=== PATIENT | male | born 1945 | race Caucasian/White ===

== ENCOUNTER 2017-02-20 15:16 | Emergency (ER) | payer MEDICARE, BC ==
[2017-02-20] MEDS ORDERED: Ondansetron INJ* 2 MG/ML VIAL IV ONE (15:59)
[2017-02-20] MEDS ORDERED: Morphine INJ* 4 MG/ML 1 ML CARPUJECT IV ONE (15:59)
[2017-02-20] MEDS: NS 0.9% 1000 ML* 2,000 ML IV ONE (16:41)
[2017-02-20 16:50] LABS: Hematocrit 41 % (42-52); Hemoglobin 13.4 g/dl (14.0-18.0); Mean Corpuscular HGB Conc 32 g/dl (31-36); Mean Corpuscular Hemoglobin 26 pg (27-31); Mean Corpuscular Volume 80 fL (80-94); Mean Platelet Volume 8 um3 (7.4-10.4); Red Blood Count 5.18 10^6/ul (4.0-5.4); Red Cell Distribution Width 18 % (10.5-15); White Blood Count 8.3 10^3/ul (3.5-10.8)
[2017-02-20] MEDS ORDERED: HYDROmorphone INJ* 1 MG/ML CARPUJECT SYRINGE IV ONE (17:01)
[2017-02-20] MEDS ORDERED: LORazepam INJ* 2 MG/ML 1 ML VIAL IV ONE (17:01)
[2017-02-20 17:06] LABS: Albumin 3.8 g/dL (3.2-5.2); BUN/Creatinine Ratio 10.6 (8-20); C Reactive Protein 5.74 mg/L (< 5.00); Calcium 9.4 mg/dL (8.6-10.3); EGFR African American 101.7 (>60); EGFR Non-African American 79.1 (>60); Globulin 2.5 g/dL (2-4); Magnesium 1.6 mg/dL (1.9-2.7); Potassium 4.9 mmol/L (3.5-5.0); Total Bilirubin 0.6 mg/dL (0.2-1.0); Total Protein 6.3 g/dL (6.4-8.9)
[2017-02-20 17:08] LABS: Troponin I 0.01 ng/mL (<0.04)
[2017-02-20] MEDS ORDERED: Iodixanol* (CONTRAST) 320 MG/ML 100 ML SDV IV ONE (17:14)
[2017-02-20 17:35] LABS: TSH (Thyroid Stimulating Horm) 0.74 mcIU/mL (0.34-5.60)
--- NOTE | 2017-02-20 18:24 | RAD ---
Indication: Trauma, head injury. CT of the brain was performed without IV contrast. Ventricular structures are midline. No midline shift is noted. The extraction spaces are unremarkable. There is no evidence of intracranial mass or hemorrhage. No other high or low density lesions identified. Mastoid air cells and paranasal sinuses are unremarkable. IMPRESSION: NO INTRACRANIAL MASS OR HEMORRHAGE IS NOTED.
--- NOTE | 2017-02-20 18:32 | RAD ---
Indication: Trauma, abdominal pain. Contrast: Administered 100.1 ml of VISAPAQUE 320 mg/ml CT of the chest, abdomen and pelvis was performed after oral and IV contrast administration. Inferior thyroid lobes are unremarkable. There is no mediastinal or hilar adenopathy. The heart demonstrates no pericardial effusion. The trachea and major bronchi appear patent. The lung edwards demonstrate emphysematous changes. No evidence of alveolar consolidation is noted. No pleural fluid is identified. The heart demonstrates no pericardial effusion. Liver is normal in size. No focal lesions or intrahepatic duct dilatation is noted. The spleen is normal in size. Pancreas is slightly atrophic. Common duct is not dilated. No adrenal lesions are noted. The kidneys demonstrate symmetric nephrograms with a cortical cysts in the left kidney measuring up to 2.9 cm. Nonobstructing calculi are noted in the left kidney with no hydronephrosis. Atherosclerotic aorta is noted. No retroperitoneal lymphadenopathy is noted. No dilated loops of bowel are noted. The colon is filled with stool. CT of the pelvis demonstrates no pelvic lymphadenopathy. Urinary bladder is unremarkable. The prostate is enlarged. No hernias are noted. No free fluid is noted in the pelvis. The visualized bony structures are grossly unremarkable. IMPRESSION: No evidence of solid organ injury is noted. No free fluid is noted in the pelvis. CT of the chest is unremarkable. The study is limited due to lack of oral contrast. Left renal cyst with left renal calculi which are nonobstructing are noted.
--- NOTE | 2017-02-20 18:43 | RAD ---
Indication: Neck injury. CT of the cervical spine was obtained in the axial plane. Sagittal and coronal reconstructed images were obtained. Mastoid air cells are intact. The C1 ring is intact without fracture. The vertebral bodies appear normal in height. No fracture is noted. At C2-C3, C3-C4 there is no disc protrusion. No central or foraminal stenosis is noted. At C4-C5 spondylitic ridge flattens the thecal sac. No central foraminal stenosis is noted. At C5-C6 spondylitic ridge flattens the thecal sac. Bilateral uncovertebral joint hypertrophy narrows both foramen. At C6-C7 and C7-T1 the disc spaces are unremarkable. Lung apices are otherwise unremarkable. IMPRESSION: No fracture of the cervical spine is noted. Degenerative disc disease at C4-C5 and C5-C6.
[2017-02-20] MEDS ORDERED: LORazepam TAB(*) 1 MG PO ONE (20:40)
--- NOTE | 2017-02-20 20:51 | ED ---
Dalila Mcdaniel Gabriel, scribed for Anoop Santana MD on 02/20/17 at 1547 . Syncope/Near Syncope - HPI Summary HPI Summary: This patient is a 71 year old M presenting to [facility] [place] accompanied by with a chief complaint of a syncopal episode that occurred 2 days ago. The patient rates the pain 10/10 in severity. Patient reports JARA and flank pain due to the fall. Patient denies CP, palpitations, melena, and hematuria. Pt states he was going to the bathroom in the middle of the night when he had a LOC. He hit his head and side while falling and was sitting on the toilet when he became conscious again. Pt reports having similar episodes 2 years ago but they stopped when he got off the medications he was taking at the time. - History Of Current Complaint Chief Complaint: EDSyncope Time Seen by Provider: 02/20/17 15:41 Hx Obtained From: Patient, Family/Toddler Teacher - Onset/Duration: Sudden Onset Timing: Intermittent Episode Lasting Context: Unwitnessed Activity At Onset: Other - walking to the bathroom Alleviating Factor(s): Spontaneous Resolution Associated Signs And Symptoms: Negative - hematuria and melena, Headache, Other - flank pain - Allergies/Home Medications Allergies/Adverse Reactions: Allergies Allergy/AdvReac Type Severity Reaction Status Date / Time No Known Allergies Allergy Verified 10/17/13 10:28 PMH/Surg Hx/FS Hx/Imm Hx Previously Healthy: No Endocrine/Hematology History: 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 Denies: Hx Anticoagulant Therapy, Hx Thyroid Disease Cardiovascular History: Reports: Hx Hypertension Denies: Hx Congestive Heart Failure, Hx Pacemaker/ICD, Other Cardiovascular Problems/Disorders Respiratory History: Reports: Hx Chronic Obstructive Pulmonary Disease (COPD), Other Respiratory Problems/Disorders - COPD Denies: Hx Asthma GI History: Reports: Hx Gastroesophageal Reflux Disease History: Reports: Hx Kidney Stones Denies: Hx Dialysis, Hx Renal Disease Sensory History: Reports: Hx Contacts or Glasses Denies: Hx Hearing Aid Opthamlomology History: Reports: Hx Contacts or Glasses Neurological History: Reports: Other Neuro Impairments/Disorders - neuropathy bilaterally Denies: Hx Dementia, Hx Seizures Psychiatric History: Reports: Hx Anxiety, Hx Post Traumatic Stress Disorder Denies: Hx Panic Disorder, Hx Substance Abuse - Surgical History Surgery Procedure, Year, and Place: 5 cardiac stent placement at [facility] done all in the . Triple Bypass at [facility] 08/19/11. 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 - Immunization History Date of Tetanus Vaccine: UNKNOWN Date of Influenza Vaccine: NONE Infectious Disease History: No Infectious Disease History: Reports: Hx Shingles - IN PAST Denies: Hx Clostridium Difficile, Hx Hepatitis, Hx Human Immunodeficiency Virus (HIV), Hx Tuberculosis, Traveled Outside the [place] in Last 30 Days - Family History Known Family History: Positive: None - reviewed & noncontributory, Unknown - pt does not know FHx - Social History Alcohol Use: None Hx Substance Use: No Substance Use Type: Reports: None Substance Use Comment - Amount & Last Used: oxycodone 10mg q4h, oxycontin SR 10mg. Hx Tobacco Use: Yes Smoking Status (MU): Former Smoker Review of Systems Cardiovascular: Negative - palpitations Negative: Chest Pain Gastrointestinal: Negative - melena Negative: hematuria Positive: Other - flank and back pain Neurological: Other - syncope Positive: Headache All Other Systems Reviewed And Are Negative: Yes Physical Exam - Summary Physical Exam Summary: General: well-appearing, no pain distress Skin: warm, color reflects adequate perfusion, dry Head: normal Eyes: EOMI, ARNOL ENT: Scabbed over lesion just anterior to his left tragus Neck: supple, nontender Respiratory: CTA, breath sounds present Cardiovascular: RRR Abdomen: soft, nontender, Mild tenderness in RUQ. Bowel: present Back: Tender to palpation on right posterior lower ribs, midline, and lower back. Musculoskeletal: normal, strength/ROM intact Neurological: normal, sensory/motor intact, A&O x3 Psychological: affect/mood appropriate Triage Information Reviewed: Yes Vital Signs On Initial Exam: Initial Vitals Temp Pulse Resp BP Pulse Ox 97.6 F 76 20 140/105 100 02/20/17 15:21 02/20/17 15:21 02/20/17 15:21 02/20/17 15:21 02/20/17 15:21 Vital Signs Reviewed: Yes Diagnostics - Vital Signs Vital Signs Temp Pulse Resp BP Pulse Ox 02/20/17 15:21 97.6 F 76 20 140/105 100 - Laboratory Lab Results: Lab Results 02/20/17 02/20/17 02/20/17 Range/Units 16:33 16:33 16:33 WBC (3.5-10.8) 10^3/ul RBC (4.0-5.4) 10^6/ul Hgb (14.0-18.0) g/dl Hct (42-52) % MCV (80-94) fL MCH (27-31) pg MCHC (31-36) g/dl RDW (10.5-15) % Plt Count (150-450) 10^3/ul MPV (7.4-10.4) um3 Neut % (Auto) (38-83) % Lymph % (Auto) (25-47) % [place] % (Auto) (1-9) % Eos % (Auto) (0-6) % Baso % (Auto) (0-2) % Absolute Neuts (auto) (1.5-7.7) 10^3/ul Absolute Lymphs (auto) (1.0-4.8) 10^3/ul Absolute Monos (auto) (0-0.8) 10^3/ul Absolute Eos (auto) (0-0.6) 10^3/ul Absolute Basos (auto) (0-0.2) 10^3/ul Absolute Nucleated RBC 10^3/ul Nucleated RBC % INR (Anticoag Therapy) 0.90 (0.77-1.02) APTT 29.8 (26.0-36.3) seconds Sodium 140 (133-145) mmol/L Potassium 4.9 (3.5-5.0) mmol/L Chloride 106 (101-111) mmol/L Carbon Dioxide 30 (22-32) mmol/L Anion Gap 4 (2-11) mmol/L BUN 10 (6-24) mg/dL Creatinine 0.94 (0.67-1.17) mg/dL Est GFR ( Amer) 101.7 (>60) Est GFR (Non-Af Amer) 79.1 (>60) BUN/Creatinine Ratio 10.6 (8-20) Glucose 158 H (70-100) mg/dL Lactic Acid (0.5-2.0) mmol/L Calcium 9.4 (8.6-10.3) mg/dL Magnesium 1.6 L (1.9-2.7) mg/dL Total Bilirubin 0.60 (0.2-1.0) mg/dL AST 11 L (13-39) U/L ALT 9 (7-52) U/L Alkaline Phosphatase 60 (34-104) U/L Total Creatine Kinase 39 (10-223) U/L CK-MB (CK-2) 2.3 (0.6-6.3) ng/mL Troponin I 0.01 (<0.04) ng/mL C-Reactive Protein 5.74 H (< 5.00) mg/L B-Natriuretic Peptide 89 ( - 100) pg/mL Total Protein 6.3 L (6.4-8.9) g/dL Albumin 3.8 (3.2-5.2) g/dL Globulin 2.5 (2-4) g/dL Albumin/Globulin Ratio 1.5 (1-3) Lipase 14 (11.0-82.0) U/L TSH 0.74 (0.34-5.60) mcIU/mL 02/20/17 02/20/17 Range/Units 16:33 16:33 WBC 8.3 (3.5-10.8) 10^3/ul RBC 5.18 (4.0-5.4) 10^6/ul Hgb 13.4 L (14.0-18.0) g/dl Hct 41 L (42-52) % MCV 80 (80-94) fL MCH 26 L (27-31) pg MCHC 32 (31-36) g/dl RDW 18 H (10.5-15) % Plt Count 213 (150-450) 10^3/ul MPV 8 (7.4-10.4) um3 Neut % (Auto) 63.1 (38-83) % Lymph % (Auto) 25.2 (25-47) % [place] % (Auto) 10.4 H (1-9) % Eos % (Auto) 0.6 (0-6) % Baso % (Auto) 0.7 (0-2) % Absolute Neuts (auto) 5.3 (1.5-7.7) 10^3/ul Absolute Lymphs (auto) 2.1 (1.0-4.8) 10^3/ul Absolute Monos (auto) 0.9 H (0-0.8) 10^3/ul Absolute Eos (auto) 0 (0-0.6) 10^3/ul Absolute Basos (auto) 0.1 (0-0.2) 10^3/ul Absolute Nucleated RBC 0 10^3/ul Nucleated RBC % 0 INR (Anticoag Therapy) (0.77-1.02) APTT (26.0-36.3) seconds Sodium (133-145) mmol/L Potassium (3.5-5.0) mmol/L Chloride (101-111) mmol/L Carbon Dioxide (22-32) mmol/L Anion Gap (2-11) mmol/L BUN (6-24) mg/dL Creatinine (0.67-1.17) mg/dL Est GFR ( Amer) (>60) Est GFR (Non-Af Amer) (>60) BUN/Creatinine Ratio (8-20) Glucose (70-100) mg/dL Lactic Acid 2.7 H* (0.5-2.0) mmol/L Calcium (8.6-10.3) mg/dL Magnesium (1.9-2.7) mg/dL Total Bilirubin (0.2-1.0) mg/dL AST (13-39) U/L ALT (7-52) U/L Alkaline Phosphatase (34-104) U/L Total Creatine Kinase (10-223) U/L CK-MB (CK-2) (0.6-6.3) ng/mL Troponin I (<0.04) ng/mL C-Reactive Protein (< 5.00) mg/L B-Natriuretic Peptide ( - 100) pg/mL Total Protein (6.4-8.9) g/dL Albumin (3.2-5.2) g/dL Globulin (2-4) g/dL Albumin/Globulin Ratio (1-3) Lipase (11.0-82.0) U/L TSH (0.34-5.60) mcIU/mL Result Diagrams: 02/20/17 16:33 02/20/17 16:33 Lab Statement: Any lab studies that have been ordered have been reviewed, and results considered in the medical decision making process. - CT CT Brain CT Interpretation Completed By: Radiologist - NO INTRACRANIAL MASS OR HEMORRHAGE IS NOTED. ED physician has reviewed this radiology report and agrees. CT ABD/Pelvis CT Interpretation Completed By: Radiologist - No evidence of solid organ injury is noted. No free fluid is noted in the pelvis. CT of the chest is unremarkable. ED physician has reviewed this radiology report and agrees. CT C-Spine CT Interpretation Completed By: Radiologist - No fracture of the cervical spine is noted. Degenerative disc disease at C4-C5 and C5-C6 ED physician has reviewed this radiology report and agrees. Re-Evaluation - Re-Evaluation First Eval Re-Evaluation Time: 17:17 Change: Unchanged Comment: Patient is shaking and complains of pain. He is awake and alert. Course/Dx Course Of Treatment: DECREASED PAIN IN ED AFTER IV DILAUDID 1MG AND ATIVAN 1MG IV. DISCUSSED RESULTS WITH PATIENT. RX ATIVAN 1MG PO Q 8 HOURS PRN #10. F/U PMD; RETURN IF WORSE. - Diagnoses Provider Diagnoses: Syncope, Blunt trauma to chest, Blunt trauma to abdomen, Low back pain, Contusion of rib on right side Discharge - Discharge Plan Condition: Stable Disposition: HOME Prescriptions: LORazepam TAB(*) [Ativan 1 MG TAB (*)] 1 mg PO Q8H PRN #10 tab MDD 3 PRN Reason: Pain Patient Education Materials: Syncope (ED), Blunt Abdominal Injury (ED), Abdominal Pain (ED), Blunt Chest Trauma (ED), Back Pain (ED), Rib Contusion (ED) Referrals: Letitia Jones [Primary Care Provider] - Additional Instructions: FOLLOW UP WITH YOUR DOCTOR FOR BOTH YOU TRAUMA AND FOR YOUR PASSING OUT EPISODE. RETURN TO THE EMERGENCY DEPARTMENT FOR ANY WORSENING OF YOUR CONDITION; PAIN, SHORTNESS OF BREATH, YOU FEEL LIKE PASSING OUT, VOMITING, BLOOD IN YOUR URINE OR STOOL OR QUESTIONS OR CONCERNS. The documentation as recorded by the Dalila helm Gabriel accurately reflects the service I personally performed and the decisions made by me, Anoop Santana MD.
[2017-02-20 21:43] VITALS: BP 165/71
== END 2017-02-20 21:40 | disposition home or self-care (01) ==
LOC: ED 15:16
DX: R55 Syncope and collapse (principal); M54.5 Low back pain; S20.211A Contusion of right front wall of thorax, initial encounter; S39.91XA Unspecified injury of abdomen, initial encounter; X58.XXXA Exposure to other specified factors, initial encounter; K21.9 Gastro-esophageal reflux disease without esophagitis; W19.XXXA Unspecified fall, initial encounter; Y92.89 Other specified places as the place of occurrence of the external cause; E11.9 Type 2 diabetes mellitus without complications; I10 Essential (primary) hypertension; J44.9 Chronic obstructive pulmonary disease, unspecified; Z87.891 Personal history of nicotine dependence; M50.321 Other cervical disc degeneration at C4-C5 level; M50.322 Other cervical disc degeneration at C5-C6 level; N28.1 Cyst of kidney, acquired
CPT/HCPCS: 36415; 70450; 71260; 72125; 74177; 80053; 82550; 82553; 83605; 83690; 83735; 83880; 84443; 84484; 85025; 85610; 85730; 86140; 96360; 96374; 96375; 99285; A9270-GY; J1170; J2060; J2270; J2405; Q9967

== ENCOUNTER 2019-01-07 06:20 | Inpatient (IN) | payer MEDICARE, BC ==
[2019-01-07] MEDS ORDERED: Heparin for STEMI(*) 5,000 UNITS/ML 1 ML VIAL IV ONE (06:55)
--- NOTE | 2019-01-07 06:58 | ED ---
HPI Chest Pain - HPI Summary HPI Summary: The patient is a 73 y/o M arriving by ambulance to [facility] accompanied by with a chief complaint of waking up with CP, SOB, and sense of impending doom this morning at 0500. He additionally reports a tingling in his hands. He has taken ASA at home, as instructed. Currently, he is not in any pain. He has been seeing a manager enterprise at the [facility] in [place] for the last 5 years ago. PMHx: triple bypass [facility] 08/19/11, multiple cardiac stents, DM, HTN, COPD. Current every day smoker, occasional EtOH, no substance use. Medications reviewed. Allergies noted. - History of Current Complaint Chief Complaint: EDChestPainROMI Hx Obtained From: Patient Onset/Duration: Started Minutes Ago, Resolved Time of Onset: 05:00 - this morning Timing: Lasting Minutes Initial Severity: Moderate Current Severity: None Pain Intensity: 0 Pain Scale Used: 0-10 Numeric Chest Pain Location: Diffuse Chest Pain Radiates: No Character: Other: - "Sense of impending doom" Aggravating Factor(s): Nothing - woke up with pain Alleviating Factor(s): Medication - ASA Associated Signs and Symptoms: Positive: Chest Pain, Tingling - in hands, Shortness of Breath, Other: - "sense of impending doom" - Allergy/Home Medications Allergies/Adverse Reactions: Allergies Allergy/AdvReac Type Severity Reaction Status Date / Time No Known Allergies Allergy Verified 10/17/13 10:28 PMH/Surg Hx/FS Hx/Imm Hx Endocrine/Hematology History: 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 Denies: Hx Anticoagulant Therapy, Hx Thyroid Disease Cardiovascular History: Reports: Hx Hypertension, Other Cardiovascular Problems/ Disorders - triple bypass Denies: Hx Congestive Heart Failure, Hx Pacemaker/ICD Respiratory History: Reports: Hx Chronic Obstructive Pulmonary Disease (COPD), Other Respiratory Problems/Disorders - COPD Denies: Hx Asthma GI History: Reports: Hx Gastroesophageal Reflux Disease History: Reports: Hx Kidney Stones Denies: Hx Dialysis, Hx Renal Disease Sensory History: Reports: Hx Contacts or Glasses Denies: Hx Hearing Aid Opthamlomology History: Reports: Hx Contacts or Glasses Neurological History: Reports: Other Neuro Impairments/Disorders - neuropathy bilaterally Denies: Hx Dementia, Hx Seizures Psychiatric History: Reports: Hx Anxiety, Hx Post Traumatic Stress Disorder Denies: Hx Panic Disorder, Hx Substance Abuse - Surgical History Surgical History: Yes Surgery Procedure, Year, and Place: 5 cardiac stent placement at [facility] done all in the . Triple Bypass at [facility] 08/19/11. 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 Hx Tobacco Use: Yes Smoking Status (MU): Current Every Day Smoker Review of Systems - ROS Summary Review of Systems Summary: Home Medications Medication Instructions Recorded Confirmed Type Aspirin EC TAB* [Ecotrin EC Low 81 mg PO DAILY 09/25/13 09/25/13 History Dose 81 MG*] Cholecalciferol TAB* [Vitamin D 1,000 mg PO BEDTIME 09/25/13 09/25/13 History TAB*] Cholecalciferol TAB* [Vitamin D 2,000 unit PO BID 09/25/13 09/25/13 History TAB*] Citalopram TAB* [Celexa TAB*] 40 mg PO DAILY 09/25/13 09/25/13 History Cyclobenzaprine TAB* [Flexeril 10 10 mg PO BEDTIME 09/25/13 09/25/13 History MG TAB*] Gabapentin CAP(*) [Neurontin 100 100 mg PO TID 09/25/13 09/25/13 History mg CAP(*)] Ibuprofen TAB* [Advil TAB*] 200 mg PO TID PRN 09/25/13 09/25/13 History Insulin ASPART (NF) [Novolog (NF)] 8 - 14 unit SUBCUT TID AC 09/25/13 09/25/13 History Meclizine TAB* [Antivert 12.5 TAB*] 25 mg PO TID 09/25/13 09/25/13 History Omeprazole CAP (NF) [Prilosec CAP* 20 mg PO BID 09/25/13 09/25/13 History 20 MG] Prazosin CAP* [Minipress CAP*] 6 mg PO BEDTIME 09/25/13 09/25/13 History Pregabalin CAP(*) [Lyrica CAP(*)] 75 mg PO TID 09/25/13 09/25/13 History Simvastatin TAB(NF) [Zocor 20 MG 80 mg PO BEDTIME 09/25/13 09/25/13 History (NF)] Terbinafine HCl (Topical) [Lamisil 1 dose TOPICAL DAILY PRN 09/25/13 09/25/13 History At] Venlafaxine EXT RELEASE CAP* 75 mg PO DAILY 09/25/13 09/25/13 History [Effexor Xr CAP*] Vits A,C,E/Lutein/Minerals 1 tab PO DAILY 09/25/13 09/25/13 History [Ocuvite] oxyCODONE SR TAB(*) [Oxycontin(*)] 15 mg PO BID 09/25/13 09/25/13 History oxyCODONE TAB* [Roxycodone TAB 5 10 mg PO Q4H PRN 09/25/13 09/25/13 History mg*] zzInsulin GLARGINE(*) [Lantus(*)] 70 unit SUBCUT BEDTIME 09/25/13 09/25/13 History Ondansetron ODT TAB* [Zofran Odt 4 mg PO Q6H PRN #30 tab.odt 06/15/15 Rx TAB*] Tamsulosin CAP* [Flomax CAP*] 0.4 mg PO DAILY #10 cap 06/15/15 Rx oxyCODONE/Acetamin 5/325 MG* 1 tab PO Q4H PRN #20 tab MDD 4 06/15/15 Rx [Percocet 5/325 TAB*] LORazepam TAB(*) [Ativan 1 MG TAB 1 mg PO Q8H PRN #10 tab MDD 3 02/20/17 Rx (*)] Positive: Other - "sense of impending doom" Positive: Chest Pain Positive: Shortness Of Breath Neurological: Other - tingling in hands All Other Systems Reviewed And Are Negative: Yes Physical Exam - Summary Physical Exam Summary: General: Well-developed, Well-nourished although unkempt elderly male. No acute distress. HEENT: Normocephalic, Atraumatic. Eyes: Conjuctiva normal, PERRL. Ears: TMs within normal limits. Nares: (-) discharge, (-) erythema. Oropharynx: Clear, mucous membranes moist, (-) exudates. Neck: Soft, FROM, (-) lymphadenopathy, (-) thyromegaly, (-) JVD. Cardiovascular: Normal sinus rhythm, (-) murmur. Lungs: Clear to auscultation bilaterally (-) wheezes, (-) rales, (-) rhonchi. Abdomen: Soft, non-tender, non-distended, (-) organomegaly, normal bowel sounds. Back: (-) CVA tenderness Extremities: No edema. Skin: Warm, dry, (-) rash. Neuro: Alert and oriented x3, no focal deficits. Psychiatric: Mood normal, affect normal. Triage Information Reviewed: Yes Vital Signs On Initial Exam: Initial Vitals Temp Pulse Resp BP Pulse Ox 98.2 F 81 12 162/87 97 01/07/19 06:34 01/07/19 06:34 01/07/19 06:34 01/07/19 06:34 01/07/19 06:34 Vital Signs Reviewed: Yes Procedures - Sedation Patient Received Moderate/Deep Sedation with Procedure: No Diagnostics - Vital Signs Vital Signs Temp Pulse Resp BP Pulse Ox 01/07/19 06:34 98.2 F 81 12 162/87 97 - Laboratory Result Diagrams: 01/07/19 06:55 01/07/19 06:55 Lab Statement: Any lab studies that have been ordered have been reviewed, and results considered in the medical decision making process. - EKG 0628 Cardiac Rate: NL - 84 BPM EKG Rhythm: Sinus Rhythm Summary of EKG Findings: EKG at 0628 reveals normal sinus rhythm with rate of [address] elevations in V2, V3. EKG was reviewed and interpreted by Dr. Mosley. 0700 Cardiac Rate: NL - 77 BPM EKG Rhythm: Sinus Rhythm Summary of EKG Findings: EKG at 0700 reveals normal sinus rhythm with rate of [address] elevations in V2. EKG was reviewed and interpreted by Dr. Mosley. Re-Evaluation - Re-Evaluation First Eval Re-Evaluation Time: 07:39 Change: Unchanged Comment: At 07:39, pt is still chest pain free. Chest Pain Course/Dx - Course Course Of Treatment: 73-year-old male arrives after she awoke with chest pain and sense of impending doom. Upon arrival he is chest pain-free. He appears to have changes on his EKG but the last available EKG for comparison is 5 years old. He has been seeing the CT for his cardiac care. Has had a bypass and stents placed. Currently patient is pain-free. No shortness of breath. Discussed with cardiology on-call. Heparin ordered as advised. Patient had aspirin at home. Repeat EKG demonstrates no changes. Patient signed out at change of shift pending further workup. - Diagnoses Provider Diagnoses: Unstable angina - Provider Notifications Discussed Care Of Patient With: Russ Land - cardiology Time Discussed With Above Provider: 06:50 Instructed by Provider To: Other - I discussed the pt's case with Dr. Land, and he recommends a heparin drip, ASA, repeat EKG, and STAT echo. Discharge ED - Sign-Out/Discharge Documenting (check all that apply): Sign-Out Patient Signing out patient TO: Elias Gutiérrez - Patient is a sign-out to Dr. Elias Gutiérrez MD, at 0700 on 01/07/2019, pending labs, meds, repeat EKG, CXR, and disposition. - Discharge Plan Condition: Stable Disposition: ADMITTED TO [facility] - Billing Disposition and Condition Condition: STABLE Disposition: Admitted to [facility] - Attestation Statements Document Initiated by [place]: Yes Documenting Scribe: Nettie Pineda Provider For Whom Charlene is Documenting (Include Credential): Dr. Heaven Mosley MD Scribe Attestation: INettie, scribed for Dr. Heaven Mosley MD on 01/08/19 at 2057. Scribe Documentation Reviewed: Yes Provider Attestation: The documentation as recorded by the Nettie helm accurately reflects the service I personally performed and the decisions made by me, Dr. Heaven Mosley MD Status of Scribe Document: Viewed
[2019-01-07] MEDS ORDERED: Heparin DRIP 25,000 UNITS(*) 25,000 UNITS/500 ML BAG IV SCH (07:00)
[2019-01-07 07:13] LABS: ABS Basophils 0.1 10^3/ul (0-0.2); ABS Eosinophils 0.1 10^3/ul (0-0.6); ABS Lymphocytes 1.9 10^3/ul (1.0-4.8); ABS Monocytes 0.8 10^3/ul (0-0.8); ABS Neutrophils 3.7 10^3/ul (1.5-7.7); Eosinophil % 0.8 %; Hematocrit 43 % (42-52); Hemoglobin 14.5 g/dL (14.0-18.0); Lymphocyte % 29.5 %; Mean Corpuscular HGB Conc 34 g/dL (31-36); Mean Corpuscular Hemoglobin 28 pg (27-31); Mean Corpuscular Volume 83 fL (80-94); Mean Platelet Volume 8.9 fL (7.4-10.4); Nucleated Red Blood Cells % 0.1; Platelet Count 138 10^3/uL (150-450); Red Blood Count 5.14 10^6 /uL (4.18-5.48); Red Cell Distribution Width 15 % (10-15); White Blood Count 6.5 10^3/uL (3.5-10.8)
[2019-01-07 07:20] LABS: Activated Partial Thrombo Time 31.7 seconds (26.0-38.0); INR 0.9 (0.82-1.09)
--- NOTE | 2019-01-07 07:20 | ED ---
Progress - Progress Note Progress Note: Pt is a sign out from Dr. Heaven Mosley MD to Dr. Elias Gutiérrez MD at 07:00 on 01/07/19 at shift change, pending labs, repeat EKG, chest x-ray, medications, and disposition. Laboratory abnormal findings: Plt count 138, sodium 134, chloride 99, glucose 423, magnesium 1.6, AST 11, b-natriuretic peptide 272, and total protein 6.1. At 07:39, pt is still chest pain free. At 07:40, I spoke with Dr. Diaz who accepts the patient for admission with a diagnosis of unstable angina. Patient will be admitted to [facility] with a diagnosis of unstable angina. - Results/Orders Results/Orders: Laboratory abnormal findings: Plt count 138, sodium 134, chloride 99, glucose 423, magnesium 1.6, AST 11, b-natriuretic peptide 272, and total protein 6.1. Re-Evaluation - Re-Evaluation First Eval Re-Evaluation Time: 07:39 Change: Unchanged Comment: At 07:39, pt is still chest pain free. Course/Dx - Course Course Of Treatment: Pt is a sign out from Dr. Heaven Mosley MD to Dr. Elias Gutiérrez MD at 07:00 on 01/07/19 at shift change, pending labs, repeat EKG, chest x-ray, medications, and disposition. Laboratory abnormal findings: Plt count 138, sodium 134, chloride 99, glucose 423, magnesium 1.6, AST 11, b- natriuretic peptide 272, and total protein 6.1. I reviewed a previous EKG from the [place] [facility] from 12/03/18, EKG today appears unchanged. At 07:40, I spoke with Dr. Diaz who accepts the patient for admission with a diagnosis of unstable angina. Pt will be admitted to [facility] with a diagnosis of unstable angina. - Diagnoses Provider Diagnoses: Unstable angina - Provider Notifications Discussed Care Of Patient With: Ottoniel Diaz Time Discussed With Above Provider: 07:40 - At 07:40, I spoke with Dr. Diaz who accepts the patient for admission with a diagnosis of unstable angina. Instructed by Provider To: Admit As Inpatient - Critical Care Time Critical Care Time: 30-74 min - 45 min Discharge ED - Sign-Out/Discharge Documenting (check all that apply): Patient Departure - Admit, Receiving Sign- Out Receiving patient FROM: Heaven Mosley - 07:00 on 01/07/19 - Discharge Plan Condition: Stable Disposition: ADMITTED TO [facility] Referrals: Letitia Jones [Primary Care Provider] - - Attestation Statements Document Initiated by Scribe: Yes Documenting Scribe: Leti Lyons Provider For Whom Scribe is Documenting (Include Credential): Elias Gutiérrez MD Scribe Attestation: ILeti, scribed for Elias Gutiérrez MD on 01/07/19 at 0829. Status of Scribe Document: Ready
[2019-01-07 07:22] LABS: Albumin 3.6 g/dL (3.2-5.2); Albumin/Globulin Ratio 1.4 (1-3); BUN/Creatinine Ratio 12.5 (8-20); Calcium 9.2 mg/dL (8.6-10.3); EGFR African American 84.7 (>60); Globulin 2.5 g/dL (2-4); Magnesium 1.6 mg/dL (1.9-2.7); Potassium 4.2 mmol/L (3.5-5.0); Total Bilirubin 0.8 mg/dL (0.2-1.0); Total Protein 6.1 g/dL (6.4-8.9)
[2019-01-07 07:24] LABS: Troponin I 0.03 ng/mL (<0.04)
[2019-01-07 07:51] LABS: TSH (Thyroid Stimulating Horm) 2.52 mcIU/mL (0.34-5.60)
[2019-01-07] MEDS ORDERED: Magnesium Sulfate IV* 2 GM in NS 0.9% 100 ML* 100 ML IVPB ONE (08:52)
[2019-01-07] MEDS ORDERED: Dextrose 50% VIAL 50 ml IV PUSH PRN (08:56)
[2019-01-07] MEDS ORDERED: Pantoprazole TAB * 40 MG TAB PO SCH (09:00)
[2019-01-07] MEDS ORDERED: Magnesium Sulfate 2 GM IV* 2 GM/50 ML BAG ONE (09:04)
[2019-01-07] MEDS ORDERED: Magnesium Sulfate 2 GM IV* 2 GM/50 ML BAG IVPB ONE (09:08)
[2019-01-07] MEDS ORDERED: Insulin GLARGINE(*) 1 UNITS UNIT SUBCUT SCH (10:00)
[2019-01-07 10:15] LABS: HDL Cholesterol 27.2 mg/dL
--- NOTE | 2019-01-07 10:24 | ECHO ---
*[facility]* [place] [address] Fax #: [phone] Transthoracic Echocardiogram Patient: Porter Lindquist : 1945 Study Date: 01/07/2019 Age: 73 Gender: M HR: 66 bpm Height: 74 in /188 cm BSA: 2.05 m^2 Weight: 174.6 lb /79.4 kg BMI: 22.5 kg/m^2 *Inclinometer Tester: * Audra Christina [facility] *Referring Physician: * Russ Land MD *Reading Physician: * John Sahni MD Indications: Acute Coronary Syndrome. History: Risk factors: Current tobacco use. Hypertension. Diabetes mellitus. Dyslipidemia. Labs, prior tests, procedures, and surgery: Catheterization. There was a stenosis which was treated with a stent. Coronary artery bypass grafting. Conclusions Summary: - Left ventricle: The cavity size is below normal. Wall thickness is moderately increased. Systolic function is normal. The estimated ejection fraction is 55-60%. Wall motion is normal; there are no regional wall motion abnormalities. - Right ventricle: The cavity size is mildly dilated. Systolic function is mildly reduced. - Ventricular septum: Postoperative hypokinesis of the interventricular septum is observed. - Left atrium: The atrium is moderately to severely dilated. - Aortic valve: The findings are consistent with severe stenosis. The peak systolic velocity is 4.71 m/sec. The mean systolic gradient is 46.4 mm Hg. Recommendations: Compared to prior study from 05/2012, mean gradient was previously 17 mmHg across the aortic valve and peak velocity was 2.6 m/s. Study data: Transthoracic echocardiogram. Procedure: Transthoracic echocardiography was performed. Image quality was suboptimal. The study was technically limited due to poor acoustic window availability. Intravenous Definity , 3 mlswas administered. Complete 2D, spectral Doppler, and color flow Doppler. Location: Emergency department. Patient status: Inpatient. Patient room number: ED-17. Rhythm: Normal sinus rhythm with PVC's. Findings Left ventricle: The cavity size is below normal. Wall thickness is moderately increased. Systolic function is normal. The estimated ejection fraction is 55-60%. Wall motion is normal; there are no regional wall motion abnormalities. Doppler parameters are consistent with abnormal left ventricular relaxation (grade 1 diastolic dysfunction). Right ventricle: The cavity size is mildly dilated. Systolic function is mildly reduced. Ventricular septum: Postoperative hypokinesis of the interventricular septum is observed. Left atrium: The atrium is moderately to severely dilated. Right atrium: The atrium is normal in size. Mitral valve: The leaflets are mildly thickened. There is no evidence of stenosis. There is trace to mild regurgitation. Aortic valve: The valve is trileaflet. The leaflets are moderately calcified. The findings are consistent with severe stenosis. There is trace regurgitation. Tricuspid valve: The leaflets are normal thickness. There is no evidence of stenosis. There is trace regurgitation. Pulmonic valve: The leaflets are normal thickness. There is no evidence of stenosis. There is trace regurgitation. Aorta: Aortic root: The aortic root is appears normal. Ascending aorta: The ascending aorta is moderately dilated. Aortic arch: The aortic arch is poorly visualized. Pericardium: There is no significant pericardial effusion. Pulmonary arteries: The main pulmonary artery is normal-sized. Systolic pressure is within the normal range. Systemic veins: Inferior vena cava: The vessel is normal in size. There is (>= 50%) respiratory change in the IVC dimension. Measurements Left ventricle Value Ref Aortic valve Value Ref EMILIA, LAX (L) 3.6 cm 4.2 - 5.8 Ramon diam, ED 2.0 cm ----- ESD, LAX 2.6 cm 2.5 - 4.0 Ramon diam/bsa, ED 1.0 cm/m^2 ----- FS, LAX 29 % 43 Peak v, S 4.71 m/sec ----- PW, ED, LAX (H) 1.5 cm 0.6 - 1.0 VTI, S 109.9 cm ----- FS 28 % 43 Mean grad, S 46.4 mm Hg ----- PW, ED (H) 1.5 cm 0.6 - 1.0 Peak grad, S 88.8 mm Hg ----- E', lat ramon, TDI (L) 7.0 cm/sec >=10.0 LVOT/AV, VTI ratio 0.21 -- --- E/e', lat ramon, 11 EDGAR, VTI 0.73 cm^2 ----- TDI EDGAR, Vmax 0.69 cm^2 ----- E', med ramon, TDI (L) 5.0 cm/sec >=7.0 E/e', med ramon, 15 Mitral valve Value Ref TDI Peak E 0.76 m/sec ----- E', avg, TDI 6.0 cm/sec Peak A 0.98 m/sec ----- E/e', avg, TDI 13 <=14 Decel time 146 ms -- --- LVET 370 ms Peak grad, D 2.3 mm Hg ----- Peak E/A ratio 0.8 ----- LVOT Value Ref Diam, S 2.10 cm Pulmonic valve Value Ref Area 3.5 cm^2 Peak v, S 0.99 m/sec ----- Peak jeannette, S 0.94 m/sec Peak grad, S 4.0 mm Hg ----- VTI, S 23.0 cm Mean grad, S 2 mm Hg Tricuspid valve Value Ref SV 64 ml TR peak v 1.85 m/sec <=2.8 SV/bsa 31 ml/m^2 Peak RV-RA grad, S 14 mm Hg ----- Ventricular septum Value Ref Aortic root Value Ref IVS, ED (H) 1.5 cm 0.6 - 1.0 Root diam 3.4 cm <4.2 Right ventricle Value Ref Ascending aorta Value Ref EMILIA, LAX 3.8 cm AAo AP diam, S 4.2 cm ----- EMILIA minor ax, A4C (H) 4.1 cm 1.9 - 3.5 mid Decending aorta Value Ref Pressure, S 17 mm Hg Erik peak jeannette 1.08 m/sec ----- Left atrium Value Ref Pulmonary artery Value Ref AP dim, ES 3.40 cm 3.00 - Pressure, S 13.0 mm Hg ----- 4.00 ML dim, A4C 5.0 cm Inferior vena cava Value Ref SI dim, A4C 5.7 cm Diam 1.8 cm ----- Vol/bsa, ES, 1-p (H) 41 ml/m^2 12 - 37 A4C Vol/bsa, ES, A/L (H) 50 ml/m^2 16 - 34 Right atrium Value Ref SI dim, ES 4.7 cm 3.4 - 5.3 ML dim, ES, A4C 3.9 cm 2.6 - 4.4 SI dim, ES, A4C 4.7 cm 3.4 - 5.3 SI dim/bsa, ES, 2.3 cm/m^2 1.8 - 3.0 A4C Estimated RAP 3 mm Hg Legend: (L) and (H) mally values outside specified reference range. Prepared and electronically signed by John Sahni MD 01/07/2019 10:24
[2019-01-07 10:38] LABS: Urine Appearance Clear; Urine Bilirubin Negative (Negative); Urine Blood Negative (Negative); Urine Color Yellow; Urine Glucose 3+(>=500 mg/dL) (Negative); Urine Ketones Trace (Negative); Urine Nitrite Negative (Negative); Urine Protein Negative (Negative); Urine Specific Gravity 1.032 (1.010-1.030); Urine Urobilinogen Negative (Negative)
[2019-01-07 10:47] LABS: Troponin I 0.04 ng/mL (<0.04)
--- NOTE | 2019-01-07 11:20 | HP ---
CC: Dr. Russ Land; Primary care at [facility] in [place], [place] HISTORY AND PHYSICAL: DATE OF ADMISSION: 08/07/18 PRIMARY CARE: At [facility] in [place], [place]. CHIEF COMPLAINT: Woke up with sensation of impending doom. 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 He has his routine medical care at the [facility] in [place], [place]. He woke up this morning with sensation of impending doom and sensation of dying. He has a history of coronary artery disease status post PTCA in the , coronary artery disease status post CABG on 08/19/11, diabetic, hypertension, tobacco use, PTSD and anxiety. He woke up around 5:30 this morning to go to the bathroom like his routine. He normally smoked 2 puff of his cigarette, goes to the bathroom, attend to his needed and returned to bed without any difficulty. However, this morning he stated he woke up to the bathroom to go, all of sudden he started feeling of sensation of dying. He was thinking that he is 72, 73 years old, not sure how long he is going to still be alive or how long is he going to be living for. He started having rapid breathing. He could not focus the thoughts , he could not recognize where he was, his symptoms got worse, he got into panic and to put it in his words "I freaked out." He starts yelling and screaming to his to attend to him to tell him what was wrong with him and he kept repeating something wrong, something wrong I am going to . His described that he was breathing rapidly, but did not appear to be shortness of breath. The patient started having numbness in his both hands and tingling. She called the ambulance and they advised him to take 4 aspirin. The patient was placed in the ambulance on oxygen and by the time he came to the emergency room he had complete resolution of his symptoms. In the emergency room, had an EKG, which I believe it is consistent with his old EKG from 2014 here in our record. He does have a QS complex in the anterior lead, but I do not see any evidence of any acute changes to suggest ischemia. Dr. Russ Land our calender roll press operator was notified and I believe recommended starting heparin drip for what was presumed to be a new Q-wave in the EKG. The patient was evaluated by me in the emergency room, history was obtained as above. He is slightly emotionally distressed and dazzled of what happened. Denies any chest pain at all, not in the emergency room nor at home. Denies any shortness of breath, no nausea or vomit, no fever or chills. The only concern is he could not understand what happened and why he was behaving the way he was, where he was completely confused and dazzled. PAST MEDICAL HISTORY: 1. Coronary artery disease status post PTCA. 2. CABG on 08/29/11. 3. Diabetes mellitus. 4. Hypertension. 5. GERD. 6. History of kidney stones. 7. PTSD and anxiety. MEDICATIONS: Reviewed personally from his medication bag at bedside and are as follows: 1. Metformin ER 500 b.i.d. 2. Protonix 40 daily 3. Gabapentin 300 b.i.d. 4. Aspirin 81 daily. 5. Vitamin D 1000 International Units daily. 6. Plavix 75 daily. 7. Cinnamon 500 two tabs daily. 8. K-Dur 20 two tab daily. 9. Multivitamin once a day. 10. Prazosin 4 mg daily. 11. Lipitor 40 at h.s. 12. Alpha-Lipoic 100 mg daily 13. Vision Formula 1 tab daily. 14. Oxycodone 10 mg h.s. routine p.r.n., although prescription written for q.6 hours, he takes it only at bedtime. 15. Nesina 25 mg daily. 16. Mag oxide 400 daily. 17. Effexor XR 150 daily. ALLERGIES: No known drug allergy. FAMILY HISTORY: Both parents . History of heart disease. SOCIAL HISTORY: He smokes still actively about half pack a day with social occasional 1 to 2 beers a week. No drugs. 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 He served in [place] and [place]. He is . He has 4 kids of his own. REVIEW OF SYSTEMS: As per HPI. PHYSICAL EXAMINATION GENERAL: He is awake, alert, bearded with Nicotine yellow stains over his mustache and yates and fingers, in no apparent distress, provides history in full sentence. VITAL SIGNS: Temperature 98.2, pulse 79, respiratory 16, sating 98%, blood pressure 144/74. HEAD AND NECK: Normocephalic, atraumatic, supple. I could not appreciate any carotid bruit. I do hear some of this cardiac murmur, radiating to the neck. LUNGS: Fine expiratory wheezing. No rhonchi. Good airflow. CARDIOVASCULAR: S1, S2. +3/6 systolic murmur in the apex. ABDOMEN: Positive bowel sounds, soft, nontender, nondistended. RECTAL EXAM: Deferred. GENITALIA: Deferred. EXTREMITIES: No pedal edema. Positive clubbing. SURVEY TECHNICIAN: He is awake, alert, oriented to place, time, and person; however, he does have difficulty with his remote memory. He is able to recall his name, his , he had difficulty recalling his 4 names. He struggled recalling some of the assignment he had, for example though he was sniper, it took him about a minute or two to recall his service. DIAGNOSTIC STUDIES/LAB DATA: CBC: White count 6.5, hemoglobin 14, hematocrit 43, platelet 138. Chemistry: Sodium 134, potassium 4.2, chloride 99, bicarb 26, BUN 13, creatinine 1, blood sugar 423. AST 11, ALT 9. Albumin 3.6. Lactic acid 1.4. TSH 2.4. BNP 272. EK. Normal sinus rhythm at 77, CO 199, QRS 108, QTc 482. He has a QS complex in the anterior leads suggestive of possible old infarct. 2. Normal sinus rhythm 84, CO 201, QRS 115, QTc 465. When we compared to his 2014, I see the similarity in his QS complex, also they are more pronounced now , but I do not see any significant changes. 3. Chest x-ray ordered has not been done yet. IMPRESSION: This is a 73-year-old male who comes in with impending doom, resolved on its own simultaneously although he took 4 baby aspirin at home, was seen and evaluated in the ER, started on heparin drip as per Cardiology recommendation and being admitted to ICU to medicine service with further cardiac consultation. 1. Atypical chest pain manifested as impending doom. - I do not see the significant EKG changes that was described on presentation by the ER, however, has been already placed on heparin drip as per cardiology. - I will continue with the recommendation of cardiology to admit the patient to ICU on heparin drip, I will keep him n.p.o. until final cardiac recommendation. - We will trend his troponin in 3 hours then in 6, his initial troponin is 0.03. - His EKG are no changes when compared to 2013. - Continue his Plavix 75 daily. He is not on beta-tres. He is angina and pain free. He does not require any nitro for now or any metoprolol. I will wait to see what Cardiology would like to do. His blood pressure is 144/74, it was 90/72 when he came. - The other differential, which I believe it could be in this case, however, we need to rule out acute coronary syndrome first, but if troponin are negative I believe his symptoms are classic of panic disorders related to anxiety and post- traumatic stress disorder in this . He is on prazosin for which I will continue. - There might be some early element of very mild borderline dementia. I will defer that for outpatient workup at his primary at the [facility] once he followup as an outpatient. 2. History of diabetes mellitus with blood sugars over 423 and that is fasting. - I am going to add A1c and lipid panel. - I am going to hold his oral regimen specifically metformin in case he end up going to the cardiac cath and will hold his Nessina, - We will transition him to Lantus 12 units although he is n.p.o. - Given his blood sugar, he probably requires high dose of long-acting, but being n.p.o. I will start him at least a 12 units of Lantus and place him on sliding scale while n.p.o. and once he resume diet, we will put him on diabetic. 3. For his gastroesophageal reflux disease, continue Protonix 40 daily. 4. For smoking, counseling was ordered. 5. For his PTSD and anxiety - Continue his Effexor 150 daily. - Continue prazosin 4 mg. The patient is full code. [id number]/[facility] #: [id number] MTDD
[2019-01-07] MEDS: Clopidogrel TAB* 75 MG PO SCH (11:31)
[2019-01-07] MEDS: Venlafaxine EXT RELEASE CAP* 75 MG PO SCH (11:32)
[2019-01-07] MEDS: Magnesium Oxide TAB* 400 MG PO SCH (11:32)
[2019-01-07] MEDS: Gabapentin CAP(*) 300 MG PO SCH ×2 (11:32→23:26)
[2019-01-07] MEDS: Potassium Chlor TAB* 20 MEQ TAB.ER PO SCH ×2 (11:32→23:27)
--- NOTE | 2019-01-07 11:42 | CONSULT ---
Subjective Date of Service: 01/07/19 Interval History: Admission Date: 01/07/19 Consult date Service: Hospitalist PCP: Letitia Jones NP at [facility] [place] CC: Lightheadedness Reason for consult: Lightheadedness. HPI: Mr. Lindquist is a 73 year old man with a history as below. His history relayed to be me varies somewhat from what he relayed to Dr. Dwyer. He tells me he woke up in his usual state of health and went to the bathroom and had a bowel movement. He stood up and suddenly felt awful like he might . He described it to be as his thoughts were very unusual and had rapid breathing but was not short of breath. When asked if he was lightheaded, he said yes. He told me he is pretty certain his episode was panic attack. He denies any chest discomfort or dyspnea or syncope. He started to yell and scream at his and and numbness in both hands and tingling. Because of an abnormal EKG, he was started on an ACS treatment pathway. He now feels completely fine. It should be noted that an outpatient cardiology note from Dr. Andino in 05/2013 notes his stated he was having episodes of dizziness and decreased consciousness with looking into space at that time. He ruled out for ACS. He has no significant kacey or tachyarrhythmias on monitor (wenkebach and non conducted PAC's noted) Last saw wind tunnel mechanic 12/03/2018 Dr. Jeremy Bullock Beta-tres stopped prior due to bradycardia/miladisnariana Was noted by to have episodes of syncope Had 14 day event monitor as below without causation then plan for TAVR due to known severe aortic stenosis Patient tells me he did not go to his appointment the day prior to admission. Pmhx: Known severe CAD s/p PCI and CABG 08/2011 (Dr. Mayorga at [facility]: LOPEZ-LAD, SVG-OM1, SVG-RPL ) DM HTN tobacco use PTSD and anxiety ALLERGIES: No known drug allergy. FAMILY HISTORY: Both parents . History of heart disease. SOCIAL HISTORY: He will smoke anywhere from 0 to 1 packs of cigarettes a day, has 1 beer a day and no recreational drug use. 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 He served in [place] and [place]. He is . He has 4 kids of his own. Medications Active Medications: Aspirin (Aspirin Ec Tab*) 81 mg PO DAILY [facility] Atorvastatin Calcium (Lipitor*) 40 mg PO BEDTIME [facility] Clopidogrel Bisulfate (Plavix Tab*) 75 mg PO DAILY [facility] Last Admin: 01/07/19 11:31 Dose: 75 mg Dextrose (Dextrose 50% Vial 50 Ml*) 25 ml IV PUSH .FOR FS < 60 - SS PRN PRN Reason: FS < 60 Gabapentin (Neurontin Cap(*)) 300 mg PO BID [facility] Last Admin: 01/07/19 11:32 Dose: 300 mg Insulin Glargine (Lantus(*)) 12 units SUBCUT Q24H [facility] Last Admin: 01/07/19 11:29 Dose: 12 unit Insulin Human Lispro (Humalog*) 0 units SUBCUT Q6HR [facility]; Protocol Last Admin: 01/07/19 11:28 Dose: 5 unit Magnesium Oxide (Magox 400 Tab*) 400 mg PO DAILY [facility] Last Admin: 01/07/19 11:32 Dose: 400 mg Oxycodone HCl (Roxycodone Tab*) 10 mg PO BEDTIME [facility] Pantoprazole Sodium (Protonix Tab*) 40 mg PO DAILY [facility] Potassium Chloride (Klor Con Er Tab*) 20 meq PO BID [facility] Last Admin: 01/07/19 11:32 Dose: 20 meq Prazosin HCl (Minipress Cap*) 4 mg PO BEDTIME [facility] Venlafaxine HCl (Effexor Xr Cap*) 150 mg PO DAILY [facility] Last Admin: 01/07/19 11:32 Dose: 150 mg Home Medications: Aspirin EC TAB* [Ecotrin EC Low Dose 81 MG*] 81 mg PO DAILY 09/25/13 [History Confirmed 01/07/19] Cholecalciferol TAB* [Vitamin D TAB*] 1,000 mg PO DAILY 09/25/13 [History Confirmed 01/07/19] Gabapentin CAP(*) [Neurontin 100 mg CAP(*)] 300 mg PO TID 09/25/13 [History Confirmed 01/07/19] Prazosin CAP* [Minipress CAP*] 4 mg PO BEDTIME 09/25/13 [History Confirmed 01/07] Venlafaxine EXT RELEASE CAP* [Effexor Xr CAP*] 150 mg PO DAILY 09/25/13 [ History Confirmed 01/07/19] Vits A,C,E/Lutein/Minerals [Ocuvite] 1 tab PO DAILY 09/25/13 [History Confirmed 01/07/19] oxyCODONE TAB* [Roxycodone TAB 5 mg*] 10 - 20 mg PO Q4H PRN MDD 6 tabs 09/25/13 [History Confirmed 01/07/19] zzInsulin GLARGINE(*) [Lantus(*)] 32 unit SUBCUT BEDTIME 09/25/13 [History Confirmed 01/07/19] Alogliptin (NF) [Nesina (NF)] 25 mg PO DAILY 01/07/19 [History Confirmed ] Alpha Lipoic Acid 100 mg PO DAILY 01/07/19 [History Confirmed 01/07/19] Atorvastatin* [Lipitor*] 40 mg PO DAILY 01/07/19 [History Confirmed 01/07/19] Cinnamon Bark [Cinnamon] 500 mg PO DAILY 01/07/19 [History Confirmed 01/07/19] Clopidogrel TAB* [Plavix TAB*] 75 mg PO DAILY 01/07/19 [History Confirmed ] Magnesium Oxide TAB* [MagOx 400 TAB*] 400 mg PO DAILY 01/07/19 [History Confirmed 01/07/19] Multivitamins/Minerals TAB* [Theragran/minerals TAB*] 1 tab PO DAILY 01/07/19 [ History Confirmed 01/07/19] Pantoprazole TAB * [Protonix TAB*] 40 mg PO DAILY 01/07/19 [History Confirmed ] Potassium Chlor TAB* [Klor Con ER TAB*] 40 meq PO DAILY 01/07/19 [History Confirmed 01/07/19] metFORMIN* [Glucophage 500 MG TAB *] 500 mg PO BID 01/07/19 [History Confirmed 01/07/19] Review of Systems - Measurements Intake and Output: Intake and Output Last 24 Hours 01/05/19 01/06/19 01/07/19 01/08/19 06:59 06:59 06:59 06:59 Output Total 200 Balance -200 Weight 175 lb Output: Urine 200 - Review of Systems Constitutional Symptoms: Negative: Weight Gain, Weight Loss, Weakness, Fever, Night Sweats Dermatology: Negative: Rash, Skin Lesions HEENT: Negative: Change in Hearing, Vertigo Eyes: Negative: Change in Vision, Double Vision Thyroid: Negative: Palpitations, Primary Hyperthyroidism, Weight Loss, Weight Gain Pulmonary: Negative: Respiratory Distress, Shortness of Breath, Exercise Intolerance Cardiology: Negative: Chest Pain, Shortness of Breath, Palpitations, Swelling of Ankles, Peripheral Vascular Dis, Edema, Syncope, Paroxysmal Nocturnal Dyspnea, Orthopnea Gastroenterology: Negative: Abdominal Pain, Nausea, Vomiting, Anorexia, Haematemesis, Melena Genital - Urinary: Negative: Dysuria, Hematuria Musculoskeletal: Negative: Joint Pain, Joint Stiffness Endocrinology: Positive: Diabetes Negative: Obesity Hematologic/Lymphatic: Positive: Use of Antiplatelet Drugs Negative: Use of Anticoagulant Neurology: Negative: Hx of Stroke\TIA, Hx Seizures Psychiatry: Negative: Unusual Anxiety, Suicidal Ideation Allergic/Immunologic: Negative: Hx HIV, Immunocompromise Review of Systems Statement: All other review of systems negative, unless stated above. Objective Vital Signs: Temp Pulse Resp BP Pulse Ox 97.9 F 68 12 134/84 100 01/07/19 11:32 01/07/19 10:00 01/07/19 10:00 01/07/19 10:00 01/07/19 10:00 Oxygen Devices in Use Now: Nasal Cannula Appearance: nad, pleasant Ears/Nose/Mouth/Throat: Clear Oropharnyx, Mucous Membranes Moist Neck: NL Appearance and Movements; NL JVP, Trachea Midline Respiratory: Symmetrical Chest Expansion and Respiratory Effort, Clear to Auscultation Cardiovascular: - - RRR, 3/6 systolic murmur base no clear split of s2 Abdominal: NL Sounds; No Tenderness; No Distention Extremities: No Edema Skin: No Rash or Ulcers Neurological: Alert and Oriented x 3 Laboratory Results: 01/07/19 06:55 01/07/19 06:55 INR (Anticoag Therapy) 0.90 (0.82-1.09) 01/07/19 06:55 APTT 31.7 seconds (26.0-38.0) 01/07/19 06:55 Total Bilirubin 0.80 mg/dL (0.2-1.0) 01/07/19 06:55 AST 11 U/L (13-39) L 01/07/19 06:55 ALT 9 U/L (7-52) 01/07/19 06:55 Alkaline Phosphatase 82 U/L (34-104) 01/07/19 06:55 B-Natriuretic Peptide 272 pg/mL (<=100) H 01/07/19 06:55 Total Protein 6.1 g/dL (6.4-8.9) L 01/07/19 06:55 Albumin 3.6 g/dL (3.2-5.2) 01/07/19 06:55 Globulin 2.5 g/dL (2-4) 01/07/19 06:55 Albumin/Globulin Ratio 1.4 (1-3) 01/07/19 06:55 Triglycerides 186 mg/dL 01/07/19 06:55 Cholesterol 116 mg/dL 01/07/19 06:55 LDL Cholesterol 52 mg/dL 01/07/19 06:55 HDL Cholesterol 27.2 mg/dL 01/07/19 06:55 TSH 2.52 mcIU/mL (0.34-5.60) 01/07/19 06:55 01/07/19 01/07/19 06:55 10:07 Troponin I 0.03 0.04 H* Diagnostic Imaging: Echo 12/03/2018 LVEF 55% Severe with mean gradient of 65.2 mmHg 14 day holter monitor 12/03-12/17/2018 14 days 8 and 9 beat NSVT 2 symptom episodes correlated with sinus rhythm Episodes of mobitz 1 heart block Transthoracic Echocardiogram Study Date: 01/07/2019 Conclusions Summary: - Left ventricle: The cavity size is below normal. Wall thickness is moderately increased. Systolic function is normal. The estimated ejection fraction is 55-60%. Wall motion is normal; there are no regional wall motion abnormalities. - Right ventricle: The cavity size is mildly dilated. Systolic function is mildly reduced. - Ventricular septum: Postoperative hypokinesis of the interventricular septum is observed. - Left atrium: The atrium is moderately to severely dilated. - Aortic valve: The findings are consistent with severe stenosis. The peak systolic velocity is 4.71 m/sec. The mean systolic gradient is 46.4 mm Hg. Recommendations: Compared to prior study from 05/2012, mean gradient was previously 17 mmHg across the aortic valve and peak velocity was 2.6 m/s. *[facility]* Stress Echocardiogram Study Date: 01/07/2019 Conclusions Summary: Test stopped due to bilateral foot pain in stage 1 carole protocol at 4.6 mets. There were no ischemic symptoms or dynamic EKG changes at a submaximal heart rate (81% MPHR). There was an appropriate rise in blood pressure and no new left ventricle dysfunction or new segmental wall motion abnormality noted (see report for details). Severe was confirmed with a mean gradient of 66 mmHg across the aortic valve. 07/2011 NSTEMI Prior history of Lcx and RCA PCI Severe restenosis of Lcx stent in 2006 LVEF 65% with mild anterior hypokinesis 75% ostial LAD, 75% distal LAD Severe ISR of Lcx stent 90% RPL lesion EKG Data: ekg this admission # 1: NSR, incomplete LBBB ekg on repeat: unchanged, with a nonconducted PAC's ekg last PM 01/07/2019 at 22:14 NSR, incomlete LBBB, wenkebach heart block with a overall rate ventricular 60's. Assessment/Plan I cannot find any evidence that patient had a cardiovascular issue leading to the presenting symptom as described above. He does have known severe aortic stenosis and I recommended that patient follow up with his wind tunnel mechanic, Dr. Jeremy Bullock soon for TAVR consideration. He was counseled on immediate smoking cessation to reduce the risk of heart attack and (even in the near future). He was counseled that failure to follow up with his wind tunnel mechanic soon to arrange for TAVR increases the risk of things including but not limited to . He expressed understanding of all of this.. If patient otherwise remains clinically stable he can be discharged Friday01/08/2019 from a cardiac standpoint.
[2019-01-07] MEDS ORDERED: Insulin LISPRO* 1 UNITS UNIT SUBCUT SCH (12:00)
[2019-01-07] MEDS ORDERED: Perflutren Lipid Microsphere* 3 ML VIAL ONE (12:59)
--- NOTE | 2019-01-07 18:17 | STRESS ---
*[facility]* [place] [address] Fax #: [phone] Stress Echocardiogram Leonel protocol Patient: Porter Lindquist : 1945 Study Date: 01/07/2019 Age: 73 Gender: M HR: 91 bpm Height: 74 in /188 cm BSA: 2.04 m^2 Weight: 172.6 lb /78.5 kg BMI: 22.2 kg/m^2 *[facility] [employer]: [place] [facility] *Referring Physician: * John Sahni MD *Reading Physician: * John Sahni MD Indications: Aortic Valve Disorder. History: Coronary artery disease. Risk factors: Current tobacco use. Hypertension. Diabetes mellitus. Dyslipidemia. Labs, prior tests, procedures, and surgery: Catheterization. There was a stenosis which was treated with a stent. Coronary artery bypass grafting. Conclusions Summary: Test stopped due to bilateral foot pain in stage 1 leonel protocol at 4.6 mets. There were no ischemic symptoms or dynamic EKG changes at a submaximal heart rate (81% MPHR). There was an appropriate rise in blood pressure and no new left ventricle dysfunction or segmental wall motion abnormality noted. Severe was confirmed with a mean gradient of 66 mmHg across the aortic valve. Study data: Stress echocardiogram Consent: The risks and benefits of the procedure, including alternatives were discussed with the patient and/or their health care patient intake representative and written informed consent was obtained. Procedure: Initial setup: Surface ECG leads and manual cuff blood pressure measurements were monitored throughout the procedure. A baseline ECG was recorded. Treadmill exercise testing was performed using the Leonel protocol. The patient exercised for 2 min 2 sec, to protocol stage 1, to a maximal work rate of 4.6 mets. Exercise was terminated due to foot pain. Transthoracic stress echocardiography. The study was technically limited due to poor acoustic window availability. Images were captured at baseline and peak exercise. Intravenous contrast Definity, 4 mlswas administered. Location: Echo laboratory. Patient status: Inpatient. Patient location: Stress lab. Patient room number: ICU 7. Study status: Routine. Study completion: There were no complications. Findings Baseline ECG: Normal sinus rhythm with incomplete left bundle branch block. Stress results: Maximal heart rate during stress was 119 bpm (81% of maximal predicted heart rate). The maximal predicted heart rate was 147 bpm.The target heart rate was 125 bpm.The target heart rate was not achieved. The heart rate response to stress is normal. There is a normal resting blood pressure with an appropriate response to stress. Stress ECG: Sinus tachycardia. The stress ECG is negative for arrythmia or ischemic ECG changes. Baseline: The estimated LV ejection fraction is 50%, abnormal septal motion consistent with prior bypass, conduction system disease. In addition mid to distal anteroseptal wall motion appears to be severely hypokinetic as well as mild hypokinesis of the inferoapical segment Mutiple regional wall motion abnormalities. Peak stress: The estimated LV ejection fraction is 50-55%. Minimal left ventricle augmentation, no obvious new segmental wall motion noted. Measurements Aortic valve Value Peak v, S 5.2 m/sec VTI, S 128.0 cm Mean grad, S 66.0 mm Hg Peak grad, S 107.0 mm Hg Legend: (L) and (H) malyl values outside specified reference range. Prepared and electronically signed by John Sahni MD 01/07/2019 18:17
[2019-01-07] MEDS: Insulin LISPRO* 1 UNITS UNIT SUBCUT SCH ×2 (18:23→23:28)
[2019-01-07] MEDS ORDERED: oxyCODONE TAB* 5 MG TAB PO SCH (21:00)
[2019-01-07] MEDS ORDERED: Atorvastatin* 40 MG TAB PO SCH (21:00)
[2019-01-07] MEDS ORDERED: Prazosin CAP* 1 MG PO SCH (21:00)
[2019-01-07] MEDS: Insulin GLARGINE(*) 1 UNITS UNIT SUBCUT SCH (23:30)
[2019-01-08] MEDS: Clopidogrel TAB* 75 MG PO SCH (08:08)
[2019-01-08] MEDS: Gabapentin CAP(*) 300 MG PO SCH (08:08)
[2019-01-08] MEDS: Magnesium Oxide TAB* 400 MG PO SCH (08:08)
[2019-01-08] MEDS: Venlafaxine EXT RELEASE CAP* 75 MG PO SCH (08:08)
[2019-01-08] MEDS: Insulin GLARGINE(*) 1 UNITS UNIT SUBCUT SCH (08:09)
[2019-01-08] MEDS: Potassium Chlor TAB* 20 MEQ TAB.ER PO SCH (08:09)
--- NOTE | 2019-01-08 08:16 | PN ---
Subjective Date of Service: 01/08/19 Interval History: f/u probable panic attack, known severe - no chest pain, dyspnea, lightheadedness or syncope all tele and ekg's reviewed no more than mobitz type 1 block (previously known and diagnosed) Medications Active Medications: Aspirin (Aspirin Ec Tab*) 81 mg PO DAILY [facility] Last Admin: 01/08/19 08:08 Dose: 81 mg Atorvastatin Calcium (Lipitor*) 40 mg PO BEDTIME [facility] Last Admin: 01/07/19 23:26 Dose: 40 mg Clopidogrel Bisulfate (Plavix Tab*) 75 mg PO DAILY [facility] Last Admin: 01/08/19 08:08 Dose: 75 mg Dextrose (Dextrose 50% Vial 50 Ml*) 25 ml IV PUSH .FOR FS < 60 - SS PRN PRN Reason: FS < 60 Gabapentin (Neurontin Cap(*)) 300 mg PO BID [facility] Last Admin: 01/08/19 08:08 Dose: 300 mg Influenza Virus Vaccine (Fluarix Quad [id number] Syr) 0.5 ml IM .ONCE ONE Stop: 01/08/19 09:01 Last Admin: 01/08/19 08:10 Dose: 0.5 ml Insulin Glargine (Lantus(*)) 12 units SUBCUT BID [facility] Last Admin: 01/08/19 08:09 Dose: 12 units Insulin Human Lispro (Humalog*) 0 units SUBCUT [facility]; Protocol Last Admin: 01/07/19 23:28 Dose: 3 unit Magnesium Oxide (Magox 400 Tab*) 400 mg PO DAILY [facility] Last Admin: 01/08/19 08:08 Dose: 400 mg Oxycodone HCl (Roxycodone Tab*) 10 mg PO BEDTIME [facility] Last Admin: 01/07/19 23:27 Dose: 10 mg Pantoprazole Sodium (Protonix Tab*) 40 mg PO DAILY [facility] Last Admin: 01/08/19 08:09 Dose: 40 mg Potassium Chloride (Klor Con Er Tab*) 20 meq PO BID [facility] Last Admin: 01/08/19 08:09 Dose: 20 meq Prazosin HCl (Minipress Cap*) 4 mg PO BEDTIME [facility] Last Admin: 01/07/19 23:27 Dose: 4 mg Venlafaxine HCl (Effexor Xr Cap*) 150 mg PO DAILY [facility] Last Admin: 01/08/19 08:08 Dose: 150 mg Objective Vital Signs: Temp Pulse Resp BP Pulse Ox 98.5 F 63 15 116/54 98 01/08/19 03:13 01/08/19 03:13 01/08/19 08:08 01/08/19 03:13 01/08/19 03:13 Oxygen Devices in Use Now: Nasal Cannula Appearance: nad, pleasant Neck: Trachea Midline Respiratory: Symmetrical Chest Expansion and Respiratory Effort Cardiovascular: RRR, - - murmur unchanged Abdominal: - - no distension Extremities: No Edema Skin: No Rash or Ulcers Neurological: Alert and Oriented x 3 Laboratory Results: 01/07/19 06:55 01/07/19 06:55 INR (Anticoag Therapy) 0.90 (0.82-1.09) 01/07/19 06:55 APTT 31.7 seconds (26.0-38.0) 01/07/19 06:55 Total Bilirubin 0.80 mg/dL (0.2-1.0) 01/07/19 06:55 AST 11 U/L (13-39) L 01/07/19 06:55 ALT 9 U/L (7-52) 01/07/19 06:55 Alkaline Phosphatase 82 U/L (34-104) 01/07/19 06:55 B-Natriuretic Peptide 272 pg/mL (<=100) H 01/07/19 06:55 Total Protein 6.1 g/dL (6.4-8.9) L 01/07/19 06:55 Albumin 3.6 g/dL (3.2-5.2) 01/07/19 06:55 Globulin 2.5 g/dL (2-4) 01/07/19 06:55 Albumin/Globulin Ratio 1.4 (1-3) 01/07/19 06:55 Triglycerides 186 mg/dL 01/07/19 06:55 Cholesterol 116 mg/dL 01/07/19 06:55 LDL Cholesterol 52 mg/dL 01/07/19 06:55 HDL Cholesterol 27.2 mg/dL 01/07/19 06:55 TSH 2.52 mcIU/mL (0.34-5.60) 01/07/19 06:55 01/07/19 01/07/19 01/07/19 06:55 10:07 13:12 Troponin I 0.03 0.04 H* 0.03 Diagnostic Imaging: Echo 12/03/2018 LVEF 55% Severe with mean gradient of 65.2 mmHg 14 day holter monitor 12/03-12/17/2018 14 days 8 and 9 beat NSVT 2 symptom episodes correlated with sinus rhythm Episodes of mobitz 1 heart block Transthoracic Echocardiogram Study Date: 01/07/2019 Conclusions Summary: - Left ventricle: The cavity size is below normal. Wall thickness is moderately increased. Systolic function is normal. The estimated ejection fraction is 55-60%. Wall motion is normal; there are no regional wall motion abnormalities. - Right ventricle: The cavity size is mildly dilated. Systolic function is mildly reduced. - Ventricular septum: Postoperative hypokinesis of the interventricular septum is observed. - Left atrium: The atrium is moderately to severely dilated. - Aortic valve: The findings are consistent with severe stenosis. The peak systolic velocity is 4.71 m/sec. The mean systolic gradient is 46.4 mm Hg. Recommendations: Compared to prior study from 05/2012, mean gradient was previously 17 mmHg across the aortic valve and peak velocity was 2.6 m/s. *[facility]* Stress Echocardiogram Study Date: 01/07/2019 Conclusions Summary: Test stopped due to bilateral foot pain in stage 1 carole protocol at 4.6 mets. There were no ischemic symptoms or dynamic EKG changes at a submaximal heart rate (81% MPHR). There was an appropriate rise in blood pressure and no new left ventricle dysfunction or new segmental wall motion abnormality noted (see report for details). Severe was confirmed with a mean gradient of 66 mmHg across the aortic valve. 07/2011 NSTEMI Prior history of Lcx and RCA PCI Severe restenosis of Lcx stent in 2006 LVEF 65% with mild anterior hypokinesis 75% ostial LAD, 75% distal LAD Severe ISR of Lcx stent 90% RPL lesion EKG Data: ekg this admission # 1: NSR, incomplete LBBB ekg on repeat: unchanged, with a nonconducted PAC's ekg last PM 01/07/2019 at 22:14 NSR, incomlete LBBB, wenkebach heart block with a overall rate ventricular 60's. Assessment/Plan No evidence that patient had a cardiovascular issue accounting for presenting symptoms as described in consult note. He does have known severe aortic stenosis and I recommended that patient follow up with his teachers' assistant, Dr. Jeremy kline for TAVR consideration. See consult for counseling details given. Patient can be discharged today from a cardiac standpoint
[2019-01-08] MEDS: Insulin LISPRO* 1 UNITS UNIT SUBCUT SCH (08:17)
[2019-01-08] MEDS ORDERED: Aspirin EC TAB* 81 MG TAB.EC PO SCH (09:00)
[2019-01-08] MEDS ORDERED: Pantoprazole TAB * 40 MG TAB PO SCH (09:00)
[2019-01-08] MEDS ORDERED: Influenza VAC *QUAD* 2019-20* 0.5 ML SYRINGE IM ONE (09:00)
[2019-01-08 12:15] VITALS: BP 132/72
--- NOTE | 2019-01-08 14:47 | DS ---
DISCHARGE SUMMARY: DATE OF ADMISSION: 01/07/19 DATE OF DISCHARGE: 01/08/19 PRIMARY CARE PROVIDER: Letitia Jones NP OTHER PROVIDERS: Russ Land MD; John Sahni DO; Jeremy Bullock MD, at [facility]. ATTENDING PHYSICIAN: Ottoniel Diaz M.D. * (dictated by SOLEDAD Newton). PRIMARY DIAGNOSES: 1. Sensation of impending doom, probable panic attack. 2. Severe aortic stenosis. SECONDARY DIAGNOSES: 1. Coronary artery disease status post PCI in the , CABG 2011. 2. Diabetes mellitus. 3. Hypertension. 4. Gastroesophageal reflux disease. 5. History of nephrolithiasis. 6. Post-traumatic stress disorder. 7. Anxiety. CONSULTATIONS WHILE IN THE HOSPITAL: Cardiology; Assessment and Plan: I cannot find evidence that the patient had a cardiovascular issue leading to presenting symptoms as described above. He has a known severe aortic stenosis and recommend the patient follow up with elevator installer apprentice, Dr. Jeremy Bullock, soon for TAVR consideration, counseled on immediate smoking cessation to reduce risk of heart attack and even in the near future, counseled that failure to follow up with elevator installer apprentice soon to arrange for TAVR increases risk of things including but not limited to . Expressed understanding of all this. If the patient otherwise remains clinically stable, he can be discharged Friday, , from cardiac standpoint. STUDIES WHILE IN THE HOSPITAL: 1. Transthoracic echocardiogram. LV cavity size normal, wall thickness moderately increased, systolic function normal, estimated EF 55% to 60%, wall motion normal. RV cavity size mildly dilated, systolic function mildly reduced, postoperative hypokinesis of ventricular septum, [id number] dilated left atrium. AV findings consistent with severe stenosis, peak systolic velocity is 4.71, mean systolic gradient 46.4 mmHg. 2. Stress echo. Summary: Test stopped due to bilateral foot pain in stage 1 Leonel protocol at 4.6 METS. No ischemic symptoms or dynamic EKG changes at submaximal heart rate (81% MPHR). Appropriate rise in blood pressure and no new LV dysfunction or segmental wall motion abnormality noted. Severe confirmed with mean gradient of 66 mmHg across the aortic valve. 3. EKG portion: Baseline EKG, NSR, incomplete LBBB. No arrhythmias or ischemic EKG changes with stress. DISCHARGE MEDICATIONS: Home Medications: 1. Alogliptin 25 mg p.o. daily. 2. Alpha-lipoic acid 100 mg p.o. daily. 3. Aspirin 81 mg p.o. daily. 4. Atorvastatin 40 mg p.o. daily. 5. Cholecalciferol 1000 mg p.o. daily. 6. Cinnamon bark 500 mg p.o. daily. 7. Clopidogrel 75 mg p.o. daily. 8. Gabapentin 300 mg p.o. t.i.d. 9. Magnesium oxide 400 mg p.o. daily. 10. Metformin 500 mg p.o. b.i.d. 11. Multivitamin/minerals 1 tab p.o. daily. 12. Oxycodone 10 to 20 mg p.o. q.6 hours p.r.n. pain MDD6. 13. Pantoprazole 40 mg p.o. daily. 14. Potassium chloride 40 mEq p.o. daily. 15. Prazosin 4 mg p.o. at bedtime. 16. Venlafaxine extended release 150 mg p.o. daily. 17. Vitamin A, C, E/lutein/mineral 1 tab p.o. daily. 18. Insulin glargine 32 units subcu at bedtime. [place] Medications: None. HISTORY OF PRESENT ILLNESS/HOSPITAL COURSE: Mr. Lindquist is a 73-year-old male with past medical history of severe , CAD with PCI in , CABG 2011, diabetes mellitus insulin dependent, hypertension, hyperlipidemia, PTSD, and anxiety, who presented to the ER via ambulance after complaints of fear of impending doom. For full and complete details, please see the history and physical dictated by Ottoniel Diaz M.D.; but in short, the patient presented stating he woke up, used the bathroom, stood and then "panicked." He states he is not sure why he woke his and was screaming and yelling. The patient is unable to remember what he was yelling about, but states he was stating "I feel like I'm dieing. I've got to go." EMS was called and the patient was transported to the hospital. EKG was obtained and shows no significant EKG changes. Troponins were ordered and trended and were within normal limits. Echocardiogram was performed and showed severe aortic stenosis, EF 55% to 60%, normal wall motion without regional wall motion abnormalities, grade 1 diastolic dysfunction. The patient was admitted to the ICU and placed on heparin drip. Cardiology was consulted. Lipid panel was ordered and showed an LDL of 52. Heparin drip was eventually discontinued. A stress echo was performed. This was discontinued before maximum predicted heart rate due to bilateral foot pain in stage 1 of the Leonel protocol. There was no noted ischemic symptoms or EKG changes at submaximal heart rate. EKG showed no arrhythmias or ischemic EKG changes with stress. Stress echo confirmed severe aortic stenosis. Cardiology finds no evidence that the patient had a cardiovascular issue leading to presenting symptoms. They recommend followup with Dr. Jeremy Bullock for TAVR consideration for severe aortic stenosis as well as immediate smoking cessation. This information was relayed to the patient and he expressed understanding. The likely cause of his symptoms as described at admission and in Dr. Diaz's history and physical was likely due to panic attack. Despite this, it is very important that the patient follow up with his elevator installer apprentice as soon as possible to discuss TAVR. Upon admission, the patient was noted to have a blood glucose of 423. This trended down throughout his stay and his morning glucose was 144 fasting. Hemoglobin A1c was ordered, but has not resulted at the time of this dictation. Recommendations were made to the patient to keep a log of his fasting morning blood sugars as well as premeal blood sugars and to bring this to his primary care provider for dose adjustments if necessary. The patient is agreeable to this. We had a discussion about tobacco cessation. The patient has been encouraged to continue to abstain from smoking. He was offered nicotine replacement, but declined. He states he would prefer to follow up with his primary care provider as the MA supplies the free tobacco cessation products. At the time of discharge, the patient is chest pain-free. He denies dizziness, lightheadedness, headache, vision changes, chest pain or pressure, shortness of breath, diaphoresis, cough, fever, chills, abdominal pain, nausea, vomiting, diarrhea, constipation, new myalgias or arthralgias. The patient states he is ambulating without difficulty and denies lightheadedness, dizziness, presyncope , syncope with ambulation. REVIEW OF SYSTEMS: A 14-point review of systems has been performed and all the pertinent positives and negatives are in the HPI. All other systems are negative. PHYSICAL EXAM: Mr. Lindquist is a well-developed, well-nourished, average-weight, older white male, who is sitting up in bed. He appears somewhat older than his stated age. He appears to be in no acute distress. HEENT: PERRL, EOMI. Nonicteric sclerae. Hearing grossly intact. Oral mucous membranes are moist. There are no lesions. Pharynx is clear. The tongue is at midline. Cardiovascular: Regular rate and rhythm. S1, S2 present. Harsh holosystolic murmur noted without rubs, clicks, or gallops. No JVD. Pulmonary: Symmetrical chest expansion without use of accessory muscles. Lungs: Clear to auscultation bilaterally without rhonchi, wheezes, or rubs. Abdomen: Flat, bowel sounds in all quadrants, soft, nontender to palpation. Musculoskeletal: Full range of motion without pain or deformities. Neuro: The patient is awake. He is alert and oriented x3 with cranial nerves grossly intact. He is able to move all of his extremities with 5/5 bilateral upper and lower extremity strength. Equal lithostripper strengths. Vital Signs: Temperature 97.0 temporal, heart rate 53, respiratory rate 18, oxygen saturation 97% on room air , blood pressure 135/53. DISCHARGE PLAN: Mr. Lindquist will be discharged to home. CONDITION: Stable. DIET: 1. Heart healthy. 2. ADA diet. ACTIVITY: As tolerated. MEDICATIONS: No changes. EDUCATION: 1. Check and log blood glucose fasting and throughout the day. Bring this record to your next primary care provider appointment. 2. Follow up with primary care provider in 4 to 7 days. 3. Follow up with Dr. Jeremy Bullock within 1 week to discuss TAVR. 4. Continue to abstain from tobacco use. 5. Return to the ER or nearest hospital if you experience any worsening of symptoms, chest pain or discomfort, shortness of breath, dizziness, lightheadedness, loss of consciousness, high fevers, chills, night sweats, or any other worrisome signs or symptoms. This is a summarized report of a complex medical history and hospital stay. For further details, please see the entire medical record. TIME SPENT: Approximately 40 minutes was spent on this discharge, greater than half that time was spent [id number] with the patient and his discussing discharge plans and instructions. SOLEDAD RAMSEY [id number]/[facility] #: [id number] [facility]
== END 2019-01-08 12:17 | disposition home or self-care (01) | DRG 880 ==
LOC: ED 06:20 → ICU 08:47 → MEDTELE 17:05
PROVIDERS: ADMIT Internal Medicine; ATTEND Internal Medicine
DX: F41.0 Panic disorder [episodic paroxysmal anxiety] (principal); I49.1 Atrial premature depolarization; I35.0 Nonrheumatic aortic (valve) stenosis; I25.10 Atherosclerotic heart disease of native coronary artery without angina pectoris; E11.9 Type 2 diabetes mellitus without complications; I10 Essential (primary) hypertension; F43.10 Post-traumatic stress disorder, unspecified; F17.210 Nicotine dependence, cigarettes, uncomplicated; I44.7 Left bundle-branch block, unspecified; I44.1 Atrioventricular block, second degree; E78.5 Hyperlipidemia, unspecified; R07.89 Other chest pain; J44.9 Chronic obstructive pulmonary disease, unspecified; K21.9 Gastro-esophageal reflux disease without esophagitis; G62.9 Polyneuropathy, unspecified; Z87.442 Personal history of urinary calculi; Z95.1 Presence of aortocoronary bypass graft; Z95.5 Presence of coronary angioplasty implant and graft; Z72.89 Other problems related to lifestyle; I25.2 Old myocardial infarction; Z79.82 Long term (current) use of aspirin; Z79.02 Long term (current) use of antithrombotics/antiplatelets; Z79.4 Long term (current) use of insulin
CPT/HCPCS: 36415; 71045; 80053; 80061; 81003; 82947; 83036; 83605; 83735; 83880; 84443; 84484; 85025; 85610; 85730; 87641; 90686; 93005; 93306; 93351; 96372; 99284; A9270-GY; C8929; J1644; J3475

== ENCOUNTER 2019-01-29 11:14 | Emergency (ER) | payer MEDICARE, BC ==
--- NOTE | 2019-01-29 11:50 | ED ---
Complex/Multi-Sys Presentation - HPI Summary HPI Summary: 73 year old M presenting to [facility] accompanied by complains of right sided rib and left sided rib pain both of which are rated 8/10 in severity after 2 recent falls. Fell 2 weeks ago on left side and fell 1 week ago on right side per . 1 week ago, patient fell in bathroom and hit his right side on the sink. Patient states his pain hasn't been improving. Hasn't taken pain medications. Additionally complains of constant bilateral upper abdominal pain x1 day. Hx kidney stones. Patient denies fever, chills, erythema of eyes, sore throat, chest pain, shortness of breath, cough, nausea/vomiting, decreased appetite, dysuria, hematuria, myalgia, edema, rash, or dizziness. Symptoms aggravated by breathing. Symptoms alleviated by nothing. Currently has blockage in aortic valve per for which he has scheduled procedure at [facility]. - History Of Current Complaint Chief Complaint: EDAbdPain Time Seen by Provider: 01/29/19 11:42 Hx Obtained From: Patient Onset/Duration: Lasting Days, Lasting Weeks, Still Present Timing: Constant Severity Currently: Severe - 8/10 Location: Pain At: - bilateral ribs, bilateral upper abdomen Aggravating Factor(s): Nothing Alleviating Factor(s): Nothing Associated Signs And Symptoms: Positive: Other - NEG: fever, chills, erythema of eyes, sore throat, chest pain, shortness of breath, cough, nausea/vomiting, decreased appetite, dysuria, hematuria, myalgia, edema, rash, or dizziness. - Allergies/Home Medications Allergies/Adverse Reactions: Allergies Allergy/AdvReac Type Severity Reaction Status Date / Time No Known Allergies Allergy Verified 10/17/13 10:28 Home Medications: Home Medications Difluprednate 0.05% (NF) [Durezol 0.05% (NF)] 1 drop LEFT EYE QID 01/29/19 [ History Confirmed 01/29/19] Melatonin (NF) 1 tab PO BEDTIME PRN 01/29/19 [History Confirmed 01/29/19] Moxifloxacin 0.5% OPHTH(NF) [Vigamox 0.5% OPHTH(NF)] 1 drop LEFT EYE QID [History Confirmed 01/29/19] Pentoxifylline CR TAB* [TRENtal CR TAB*] 400 mg PO Q8HR 01/29/19 [History Confirmed 01/29/19] Polyethylene Glycol 3350 BTL* [Miralax] 1 pow PO DAILY PRN 01/29/19 [History Confirmed 01/29/19] Vits A and D/White Pet/Lanolin [A and D Ointment] 1 applic TOPICAL BID 01/29/19 [History Confirmed 01/29/19] PMH/Surg Hx/FS Hx/Imm Hx Endocrine/Hematology History: 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 Denies: Hx Anticoagulant Therapy, Hx Thyroid Disease Cardiovascular History: Reports: Hx Angina, Hx Coronary Artery Disease, Hx Hypertension, Hx Valvular Heart Disease - AORTIC, Other Cardiovascular Problems/ Disorders - triple bypass Denies: Hx Congestive Heart Failure, Hx Hypercholesterolemia, Hx Myocardial Infarction, Hx Pacemaker/ICD, Hx Peripheral Vascular Disease Respiratory History: Reports: Hx Chronic Obstructive Pulmonary Disease (COPD), Other Respiratory Problems/Disorders - COPD Denies: Hx Asthma GI History: Reports: Hx Gastroesophageal Reflux Disease History: Reports: Hx Kidney Stones Denies: Hx Chronic Renal Failure, Hx Dialysis, Hx Renal Disease Sensory History: Reports: Hx Contacts or Glasses Denies: Hx Hearing Aid Opthamlomology History: Reports: Hx Contacts or Glasses Neurological History: Reports: Other Neuro Impairments/Disorders - neuropathy bilaterally Denies: Hx Dementia, Hx Seizures, Hx Transient Ischemic Attacks (TIA) Psychiatric History: Reports: Hx Anxiety, Hx Post Traumatic Stress Disorder Denies: Hx Panic Disorder, Hx Substance Abuse - Surgical History Surgery Procedure, Year, and Place: 5 cardiac stent placement at [facility] done all in the . Triple Bypass at [facility] 08/19/11. 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 - Immunization History Date of Tetanus Vaccine: UNKNOWN Date of Influenza Vaccine: NONE Infectious Disease History: No Infectious Disease History: Reports: Hx Shingles - IN PAST Denies: Hx Clostridium Difficile, Hx Hepatitis, Hx Human Immunodeficiency Virus (HIV), Hx of Known/Suspected MRSA, Hx Tuberculosis, History Other Infectious Disease, Traveled Outside the [place] in Last 30 Days - Family History Known Family History: Negative: Cardiac Disease - Social History Alcohol Use: Occasionally Alcohol Amount: 1-2 drinks per week Hx Substance Use: No Substance Use Type: Reports: None Substance Use Comment - Amount & Last Used: oxycodone 10mg qBEDTIME Hx Tobacco Use: Yes Smoking Status (MU): Light Every Day Tobacco Smoker Type: Cigarettes Have You Smoked in the Last Year: Yes Review of Systems Negative: Fever, Chills Negative: Erythema Negative: Sore Throat Negative: Chest Pain Negative: Shortness Of Breath, Cough Positive: Abdominal Pain. Negative: Vomiting, Nausea Negative: dysuria, hematuria Positive: Other - bilateral rib pain. Negative: Myalgia, Edema Negative: Rash Neurological: Negative - Dizziness All Other Systems Reviewed And Are Negative: Yes Physical Exam - Summary Physical Exam Summary: Constitutional: Well-developed, Well-nourished, Alert. (-) Distressed Skin: Warm, Dry HENT: Normocephalic; Atraumatic Eyes: Conjunctiva normal Neck: Musculoskeletal ROM normal neck. (-) JVD, (-) Stridor, (-) Tracheal deviation Cardio: Rhythm regular, rate normal, Heart sounds normal; Intact distal pulses; The pedal pulses are 2+ and symmetric. Radial pulses are 2+ and symmetric. (-) Murmur Pulmonary/Chest wall: He is taking shallow breaths d/t pain. (-) Respiratory distress, (-) Wheezes, (-) Rales Abd: Soft, diffuse abdominal tenderness, (-) Distension, (-) Guarding, (-) Rebound Musculoskeletal: Bilateral lower rib tenderness, mid thoracic tenderness Lymph: (-) Cervical adenopathy Neuro: Alert, Oriented x3 Psych: Mood and affect Normal Triage Information Reviewed: Yes Vital Signs On Initial Exam: Initial Vitals Temp Pulse Resp BP Pulse Ox 97.9 F 111 19 103/85 100 01/29/19 11:15 01/29/19 11:15 01/29/19 11:15 01/29/19 11:15 01/29/19 11:15 Vital Signs Reviewed: Yes Procedures - Sedation Patient Received Moderate/Deep Sedation with Procedure: No Diagnostics - Vital Signs Vital Signs Temp Pulse Resp BP Pulse Ox 01/29/19 11:15 97.9 F 111 19 103/85 100 - Laboratory Result Diagrams: 01/29/19 11:58 01/29/19 11:58 Lab Statement: Any lab studies that have been ordered have been reviewed, and results considered in the medical decision making process. - CT Chest/Abd/Pel CT Interpretation Completed By: Radiologist Summary of CT Findings: BILATERAL NONDISPLACED RIB FRACTURES. ATHEROSCLEROSIS. ECTASIA OF THE ASCENDING THORACIC AORTA. ENLARGED PROSTATE. LEFT NEPHROLITHIASIS WITHOUT HYDRONEPHROSIS. ED physician has reviewed this report. Re-Evaluation - Re-Evaluation First Eval Re-Evaluation Time: 14:45 Change: Improved - pain is controlled. wishes to go home Complex Multi-Symp Course/Dx Course Of Treatment: 73 year old M complains of right sided and left sided rib pain after 2 recent falls 2 weeks and 1 week ago, and constant bilateral upper abdominal pain x1 day. Physical exam findings: Bilateral lower rib tenderness, mid thoracic tenderness, diffuse abdominal tenderness, he is taking shallow breaths d/t pain. Bloodwork results with no significant abnormalities except for Hgb 13.8, chloride 97, glucose 360, lactic acid 2.4, AST 9, alkaline phosphatase 122, CRP 27.30, lipase <10. CT Chest/Abd/Pel shows, per radiologist : BILATERAL NONDISPLACED RIB FRACTURES. ATHEROSCLEROSIS. ECTASIA OF THE ASCENDING THORACIC AORTA. ENLARGED PROSTATE. LEFT NEPHROLITHIASIS WITHOUT HYDRONEPHROSIS. In the ED course, the patient was given normal saline fluids 1 L IV, morphine 4 mg IV, Zofran 4 mg IV. After medications, states that he feels pain is controlled and wishes to go home. He requested that prescription be sent to [facility]. Patient will be discharged home with prescription for Percocet which was sent to the [facility] pharmacy as requested and follow up from his primary care provider in 2-3 days. He was advised to use incentive spirometer once per hour when awake. Patient was instructed to return to Emergency Department for new or worsening symptoms. Patient understands and is agreeable to this plan. - Diagnoses Provider Diagnoses: Fracture of rib of left side, Fracture of rib of right side Discharge ED - Sign-Out/Discharge Documenting (check all that apply): Patient Departure - Discharge - Discharge Plan Condition: Stable Disposition: HOME Prescriptions: oxyCODONE/Acetamin 5/325 MG* [Percocet 5/325 TAB*] 1 tab PO Q6H PRN #20 tab MDD 4 PRN Reason: Pain - Severe Patient Education Materials: How to Use an Incentive Spirometer (ED), Rib Fracture (ED) Referrals: Letitia Jones [Primary Care Provider] - 2 Days Additional Instructions: Your prescription was sent to the pharmacy at [facility]. Use incentive spirometer once per hour when you are awake. Follow up with your primary care provider in 2-3 days. Return to the Emergency Department with new or worsening symptoms. - Attestation Statements Document Initiated by Scribe: Yes Documenting Scribe: Yakelin Abreu Provider For Whom Scribe is Documenting (Include Credential): Elias Gutiérrez MD Scribe Attestation: IYakelin, scribed for Elias Gutiérrez MD on 01/29/19 at 1454. Status of Scribe Document: Ready
[2019-01-29] MEDS ORDERED: NS 0.9% 1000 ML** 1,000 ML IV ONE (11:55)
[2019-01-29] MEDS ORDERED: Morphine 4 MG/ML VIAL (1 ml) 4 MG/ML VIAL IV ONE (11:55)
[2019-01-29] MEDS ORDERED: Ondansetron INJ* 2 MG/ML VIAL IV ONE (11:55)
[2019-01-29 12:30] LABS: ABS Basophils 0.1 10^3/ul (0-0.2); ABS Eosinophils 0.1 10^3/ul (0-0.6); ABS Lymphocytes 1.6 10^3/ul (1.0-4.8); ABS Monocytes 0.7 10^3/ul (0-0.8); ABS Neutrophils 5.3 10^3/ul (1.5-7.7); Eosinophil % 0.8 %; Hematocrit 42 % (42-52); Hemoglobin 13.8 g/dL (14.0-18.0); Lymphocyte % 20.8 %; Mean Corpuscular HGB Conc 33 g/dL (31-36); Mean Corpuscular Hemoglobin 27 pg (27-31); Mean Corpuscular Volume 82 fL (80-94); Mean Platelet Volume 8.6 fL (7.4-10.4); Platelet Count 300 10^3/uL (150-450); Red Cell Distribution Width 15 % (10-15); White Blood Count 7.8 10^3/uL (3.5-10.8)
[2019-01-29 12:42] LABS: ALT 9 U/L (7-52); AST 9 U/L (13-39); Albumin 3.7 g/dL (3.2-5.2); Albumin/Globulin Ratio 1.2 (1-3); Alkaline Phosphatase 122 U/L (34-104); Anion Gap 9 mmol/L (2-11); BUN/Creatinine Ratio 11.2 (8-20); Blood Urea Nitrogen 11 mg/dL (6-24); CO2 Carbon Dioxide 29 mmol/L (22-32); Calcium 9.7 mg/dL (8.6-10.3); Chloride 97 mmol/L (101-111); EGFR African American 90.7 (>60); Glucose 360 mg/dL (70-100); Potassium 4.9 mmol/L (3.5-5.0); Sodium 135 mmol/L (135-145); Total Protein 6.7 g/dL (6.4-8.9)
[2019-01-29] MEDS ORDERED: Iodixanol* (CONTRAST) 320 MG/ML 100 ML SDV IV ONE (13:17)
[2019-01-29] MEDS ORDERED: oxyCODONE/Acetamin 5/325 MG* TAB PO ONE (14:06)
[2019-01-29 15:39] VITALS: BP 173/82
== END 2019-01-29 15:32 | disposition home or self-care (01) ==
LOC: ED 11:14
DX: S22.43XA Multiple fractures of ribs, bilateral, initial encounter for closed fracture (principal); W18.30XA Fall on same level, unspecified, initial encounter; Y92.002 Bathroom of unspecified non-institutional (private) residence as the place of occurrence of the external cause; E11.9 Type 2 diabetes mellitus without complications; I25.10 Atherosclerotic heart disease of native coronary artery without angina pectoris; I10 Essential (primary) hypertension; J44.9 Chronic obstructive pulmonary disease, unspecified; K21.9 Gastro-esophageal reflux disease without esophagitis; F41.9 Anxiety disorder, unspecified; F43.10 Post-traumatic stress disorder, unspecified; F17.210 Nicotine dependence, cigarettes, uncomplicated; Z95.5 Presence of coronary angioplasty implant and graft; Z95.1 Presence of aortocoronary bypass graft; I77.810 Thoracic aortic ectasia; N20.0 Calculus of kidney; N28.1 Cyst of kidney, acquired; I70.0 Atherosclerosis of aorta; N40.0 Benign prostatic hyperplasia without lower urinary tract symptoms; Z79.4 Long term (current) use of insulin; Z79.82 Long term (current) use of aspirin; Z79.899 Other long term (current) drug therapy
CPT/HCPCS: 36415; 71260; 74177; 80053; 83605; 83690; 85025; 86140; 96361; 96374; 96375; 99283; A9270-GY; J2270; J2405; Q9967

== ENCOUNTER 2019-02-06 13:01 | Emergency (ER) | payer MEDICARE, BC ==
--- NOTE | 2019-02-06 13:14 | ED ---
HPI Chest Pain - HPI Summary HPI Summary: This patient is a 73 year old male presenting to [facility] with a chief complaint of chest pain since 2 days ago which resolved upon arrival. The patient was admitted to the hospital several weeks ago for the same complaint and was diagnosed with aortic stenosis. The patient also fell and broke his ribs 8 days ago. He states it is a constant pain and reports SOB. He states pain in both of his lower extremities. He states he does not know if he took aspirin today. He rates his chest pain 5/10 in severity when he ahs the pain. Medications reviewed , allergies noted. - History of Current Complaint Chief Complaint: EDChestPainROMI Time Seen by Provider: 02/06/19 13:06 Hx Obtained From: Patient, Family/Educational Manager Onset/Duration: Started Days Ago Pain Intensity: 5 Pain Scale Used: 0-10 Numeric - Additional Pertinent History Primary Care Physician: FARHAD - Allergy/Home Medications Allergies/Adverse Reactions: Allergies Allergy/AdvReac Type Severity Reaction Status Date / Time No Known Allergies Allergy Verified 02/06/19 13:06 Home Medications: Home Medications Insulin GLARGINE(*) [Lantus(*)] 34 units SUBCUT BEDTIME 02/06/19 [History Confirmed 02/06/19] PMH/Surg Hx/FS Hx/Imm Hx Endocrine/Hematology History: 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 Denies: Hx Anticoagulant Therapy, Hx Thyroid Disease Cardiovascular History: Reports: Hx Angina, Hx Coronary Artery Disease, Hx Hypertension, Hx Valvular Heart Disease - AORTIC, Other Cardiovascular Problems/ Disorders - triple bypass Denies: Hx Congestive Heart Failure, Hx Hypercholesterolemia, Hx Myocardial Infarction, Hx Pacemaker/ICD, Hx Peripheral Vascular Disease Respiratory History: Reports: Hx Chronic Obstructive Pulmonary Disease (COPD), Other Respiratory Problems/Disorders - COPD Denies: Hx Asthma GI History: Reports: Hx Gastroesophageal Reflux Disease History: Reports: Hx Kidney Stones Denies: Hx Chronic Renal Failure, Hx Dialysis, Hx Renal Disease Sensory History: Reports: Hx Contacts or Glasses Denies: Hx Hearing Aid Opthamlomology History: Reports: Hx Contacts or Glasses Neurological History: Reports: Other Neuro Impairments/Disorders - neuropathy bilaterally Denies: Hx Dementia, Hx Seizures, Hx Transient Ischemic Attacks (TIA) Psychiatric History: Reports: Hx Anxiety, Hx Post Traumatic Stress Disorder Denies: Hx Panic Disorder, Hx Substance Abuse - Surgical History Surgery Procedure, Year, and Place: 5 cardiac stent placement at [facility] done all in the . Triple Bypass at [facility] 08/19/11. 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 - Immunization History Date of Tetanus Vaccine: UNKNOWN Date of Influenza Vaccine: NONE Infectious Disease History: No Infectious Disease History: Reports: Hx Shingles - IN PAST Denies: Hx Clostridium Difficile, Hx Hepatitis, Hx Human Immunodeficiency Virus (HIV), Hx of Known/Suspected MRSA, Hx Tuberculosis, History Other Infectious Disease, Traveled Outside the [place] in Last 30 Days - Family History Known Family History: Negative: Cardiac Disease - Social History Occupation: Retired Alcohol Use: Occasionally Alcohol Amount: 1-2 drinks per week Hx Substance Use: No Substance Use Type: Reports: None Substance Use Comment - Amount & Last Used: oxycodone 10mg qBEDTIME Hx Tobacco Use: Yes Smoking Status (MU): Light Every Day Tobacco Smoker Type: Cigarettes Have You Smoked in the Last Year: Yes Review of Systems Positive: Chest Pain Positive: Shortness Of Breath Positive: Other - Lower extremity pain All Other Systems Reviewed And Are Negative: Yes Physical Exam - Summary Physical Exam Summary: Constitutional: Well-developed, Well-nourished, Alert. (-) Distressed. Sleepy, but arousable. Skin: Warm, Dry HENT: Normocephalic; Atraumatic Eyes: Conjunctiva normal Neck: Musculoskeletal ROM normal neck. (-) JVD, (-) Stridor, (-) Tracheal deviation Cardio: Rhythm regular, rate normal, Heart sounds normal; Intact distal pulses; Radial pulses are 2+ and symmetric. (-) Murmur Pulmonary/Chest wall: Effort normal. (-) Respiratory distress, (-) Wheezes, (-) Rales Abd: Soft, (-) tenderness, (-) Distension, (-) Guarding, (-) Rebound Musculoskeletal: (-) Edema. Good pulses bilaterally in radius, No calf tenderness, No venous cords, No pain with dorsiflexion of foot Lymph: (-) Cervical adenopathy Neuro: Alert, Oriented x3 Psych: Mood and affect Normal Triage Information Reviewed: Yes Vital Signs On Initial Exam: Initial Vitals Temp Pulse Resp BP Pulse Ox 98.0 F 105 20 0/0 100 02/06/19 13:04 02/06/19 13:04 02/06/19 13:04 02/06/19 13:04 02/06/19 13:04 Vital Signs Reviewed: Yes Procedures - Sedation Patient Received Moderate/Deep Sedation with Procedure: No Diagnostics - Vital Signs Vital Signs Temp Pulse Resp BP Pulse Ox 02/06/19 13:04 98.0 F 105 20 0/0 100 - Laboratory Result Diagrams: 02/06/19 13:09 02/06/19 13:09 Lab Statement: Any lab studies that have been ordered have been reviewed, and results considered in the medical decision making process. - Radiology CXR Radiology Interpretation Completed By: Radiologist Summary of Radiographic Findings: Pending at time of transfer. - CT Chest CT Interpretation Completed By: Radiologist Summary of CT Findings: No definite pulmonary embolus is noted. There appears to be chronic right subclavian vein stenosis with narrowing of the subclavian vein just distal to the superior vena cava. This has been present as far back as 05/31/12. Emphysematous changes of the lung edwards are noted. ED Provider has reviewed this report. - EKG 1302 Cardiac Rate: NL - 90 BPM EKG Rhythm: Sinus Rhythm Summary of EKG Findings: Incomplete LBBB, one mm ST elevation from V2-V3 unchanged from prior EKG on 01/07/19. Slight ST depression in II. ED Physician has reviewed and interpreted this EKG. Chest Pain Course/Dx - Course Course Of Treatment: Patient is here with chest pain in the setting of known multivessel disease. Patient had a catheter on at the [facility] in [place] which showed multivessel disease. Patient was in the process of being referred for probable CABG and TAVR but has not received a referral for that. Patient had chest pain and shortness of breath that resolved by the time he arrived here. Patient was given aspirin here. Patient had an EKG which showed no ischemic changes. Patient had an elevated d-dimer so a CT was performed which was negative. Patient also had an older troponin of 0.07. Patient was given a dose of Lovenox. Cardiology was called here and recommended transfer to a facility with cardiothoracic surgery. Patient was transferred to [facility] - Diagnoses Provider Diagnoses: NSTEMI (non-ST elevated myocardial infarction), Multi-vessel coronary artery stenosis, Aortic stenosis, severe - Provider Notifications Discussed Care Of Patient With: John Sahni - Cardiology Time Discussed With Above Provider: 14:36 - Patient is an NSTEMI with multivessel disease and severe aortic stenosis that will need Cardiothoracic surgery for CABG and possible TAVR. Patient to be transferred to [facility]. Instructed by Provider To: Transfer - Critical Care Time Critical Care Time: 30-74 min - 35 Discharge ED - Sign-Out/Discharge Documenting (check all that apply): Patient Departure - Transfer to [facility], accepted by Dr. Jimenez at their Cardiology floor. - Discharge Plan Condition: Stable Disposition: TRANS HIGHER LVL OF CARE FAC Referrals: Letitia Jones [Primary Care Provider] - - Billing Disposition and Condition Condition: STABLE Disposition: Trans Higher Lvl of Care Fac - Attestation Statements Document Initiated by Charlene: Yes Documenting Scribe: Len Kenyon Provider For Whom Charlene is Documenting (Include Credential): Jethro Grier MD Scribe Attestation: Len Mcdaniel, scribed for Jethro Grier MD on 02/06/19 at 1511. Scribe Documentation Reviewed: Yes Provider Attestation: The documentation as recorded by the Len helm accurately reflects the service I personally performed and the decisions made by , Jethro Grier MD Status of Scribe Document: Viewed
[2019-02-06 13:21] LABS: ABS Basophils 0.1 10^3/ul (0-0.2); ABS Eosinophils 0.1 10^3/ul (0-0.6); ABS Lymphocytes 2.5 10^3/ul (1.0-4.8); ABS Monocytes 0.6 10^3/ul (0-0.8); Eosinophil % 1.3 %; Hematocrit 42 % (42-52); Hemoglobin 13.6 g/dL (14.0-18.0); Lymphocyte % 29.8 %; Mean Corpuscular HGB Conc 33 g/dL (31-36); Mean Corpuscular Hemoglobin 27 pg (27-31); Mean Corpuscular Volume 82 fL (80-94); Platelet Count 235 10^3/uL (150-450); Red Blood Count 5.05 10^6 /uL (4.18-5.48); Red Cell Distribution Width 15 % (10-15); White Blood Count 8.2 10^3/uL (3.5-10.8)
[2019-02-06 13:27] LABS: INR 0.91 (0.82-1.09)
[2019-02-06 13:40] LABS: Albumin 3.6 g/dL (3.2-5.2); Anion Gap 7 mmol/L (2-11); CO2 Carbon Dioxide 27 mmol/L (22-32); Calcium 8.9 mg/dL (8.6-10.3); Chloride 102 mmol/L (101-111); Potassium 4.2 mmol/L (3.5-5.0); Sodium 136 mmol/L (135-145)
[2019-02-06 13:46] LABS: ALT 11 U/L (7-52); AST 10 U/L (13-39); Albumin/Globulin Ratio 1.3 (1-3); Alkaline Phosphatase 136 U/L (34-104); BUN/Creatinine Ratio 13.1 (8-20); Blood Urea Nitrogen 14 mg/dL (6-24); EGFR Non-African American 67.7 (>60); Globulin 2.8 g/dL (2-4); Glucose 369 mg/dL (70-100); Total Protein 6.4 g/dL (6.4-8.9); Troponin I 0.07 ng/mL (<0.03)
[2019-02-06] MEDS ORDERED: Aspirin 81 mg CHEW TAB* 81 MG TAB.CHEW PO ONE (13:56)
[2019-02-06] MEDS ORDERED: Iodixanol* (CONTRAST) 320 MG/ML 100 ML SDV IV ONE (14:17)
[2019-02-06] MEDS ORDERED: Enoxaparin(*) 80 MG/0.8 ML SYR SUBCUT ONE (14:40)
[2019-02-06 16:33] VITALS: BP 114/64
[2019-02-06 16:45] LABS: Troponin I 0.06 ng/mL (<0.03)
== END 2019-02-06 16:34 | disposition short-term general hospital (02) ==
LOC: ED 13:01
DX: I21.4 Non-ST elevation (NSTEMI) myocardial infarction (principal); I25.10 Atherosclerotic heart disease of native coronary artery without angina pectoris; I35.0 Nonrheumatic aortic (valve) stenosis; E11.9 Type 2 diabetes mellitus without complications; I10 Essential (primary) hypertension; J44.9 Chronic obstructive pulmonary disease, unspecified; K21.9 Gastro-esophageal reflux disease without esophagitis; F41.9 Anxiety disorder, unspecified; F43.10 Post-traumatic stress disorder, unspecified; Z95.5 Presence of coronary angioplasty implant and graft; F17.210 Nicotine dependence, cigarettes, uncomplicated; Z95.1 Presence of aortocoronary bypass graft; Z87.442 Personal history of urinary calculi; Z79.4 Long term (current) use of insulin
CPT/HCPCS: 36415; 71045; 71275; 80053; 84484; 85025; 85379; 85610; 93005; 96372; 99284; A9270-GY; J1650; Q9967

== ENCOUNTER 2019-02-17 05:03 | Emergency (ER) | payer MEDICARE, BC ==
--- OUTSIDE RECORDS SUMMARY | 2019-02-17 05:15 | XMS REPORT | Summary of Care ---
:1945 Author Organization [facility] Address [address] [address] Care Team Providers Name Role Phone Christin Cervantes RN Chronic Disease Nurse Educator Unavailable Letitia Jones CRANE OILER Primary Care Provider Reason for Referral (Routine) Status Reason Specialty Diagnoses / Procedures Referred By Contact Referred To Contact Cecile Roach MD [address] [place] [address] Scheduling Instructions Reason for Consult: with TTE shows Severe aortic stenosis,Occuleded Saphenous vein graft to PDA,Please evaluate for TAVR verses SAVR.Thank you Patient Background: Sushant Lindquist is a 73-y.o. male (Routine) Status Reason Specialty Diagnoses / Procedures Referred By Contact Referred To Contact [facility] [address] [place] [address] Phone: [phone] Scheduling Instructions Reason for Consult: CHF diet teaching. Patient Background: Sushant Lindquist is a 73-y.o. male (Routine) Status Reason Specialty Diagnoses / Procedures Referred By Contact Referred To Contact Yoseph Aguila MD [address] [place] [address] Scheduling Instructions Reason for Consult: Patient with atypical symptoms of Chest pain. Having Frequent PAC. Please evaluate Thanks Patient Background: Sushant Lindquist is a 73-y.o. male Reason for Visit Auth/Cert Status Reason Specialty Diagnoses / Procedures Referred By Contact Referred To Contact Encounter Details Date Type Department Care Team Description 02/06/2019 - Hospital Encounter [facility] [address] Charles Jimenez Inpatient 02/10/2019 [address] [place] [id number] [address] [phone] [place] [address] Allergies No Known Allergiesdocumented as of this encounter (statuses as of 02/11/2019) Medications Medication Sig Dispensed Refills Start End Date Status Date Aspirin 81 MG Oral Take 81 mg by 0 Active Tab mouth DAILY. Blood Glucose FOUR TIMES 50 Strip 3 Active Monitoring Suppl DAILY. 0 (BLOOD GLUCOSE TEST [employer] STRIPS STRP) Discs Pen [place] 31G X 8 1 Each by Does 400 Each 3 Active MM Does not apply not apply 0 Misc route FOUR TIMES DAILY. BD UF 31G short pen needles inject qid NAPROXEN PO Take 1 Tab by 0 Active mouth TWICE DAILY. atorvastatin Take 40 mg by 0 Active (LIPITOR) 40 MG Oral mouth DAILY. Tab Cholecalciferol 1000 Take 1 Each by 0 Active units Oral Cap mouth DAILY. venlafaxine (EFFEXOR Take 150 mg by 0 Active XR) 150 MG Oral mouth. CAPSULE SR 24 HR gabapentin Take 300 mg by 0 Active (NEURONTIN) 300 MG mouth THREE Oral Cap TIMES DAILY. Prazosin HCl Take 4 mg by 0 Active (MINIPRESS PO) mouth EVERY BEDTIME. Alogliptin Benzoate Take 1 Tab by 0 Active (NESINA) 25 MG Oral mouth DAILY. Tab OXYcodone Take 5 mg by 0 Active (OXY-IR,OXY-FAST) 5 mouth THREE MG Oral Tab TIMES DAILY NEEDED. THIOCTIC ACID 100 MG Take 1 Cap by 0 Active Oral Cap mouth THREE TIMES DAILY. clopidogrel (PLAVIX) Take 75 mg by 0 Active 75 MG Oral Tab mouth DAILY. pantoprazole Take 40 mg by 0 Active (PROTONIX) 40 MG mouth DAILY. Oral Tab EC Potassium Chloride Take 40 mEq by 0 Active ER 20 MEQ Oral Tab mouth DAILY. CR metFORMIN Take 500 mg by 0 Active (GLUCOPHAGE) 500 MG mouth TWICE Oral Tab DAILY. Pentoxifylline Take 400 mg by 0 Active (TRENTAL PO) mouth EVERY EIGHT HOURS. polyethylene glycol Take 17 g by 0 Active (MIRALAX) Oral mouth DAILY Powder NEEDED. GLARGINE insulin, Inject 38 0 Active LONG-Acting, Units beneath 9 (LANTUS) 100 UNIT/ML the skin EVERY Subcutaneous BEDTIME. Solution metoprolol succinate Take 1 Tab by 30 Tab 0 Active (TOPROL XL) 50 MG mouth DAILY. 9 Oral TABLET SR 24 HR OCUVITE PO Take by mouth 0 02/07/20 Discontinued DAILY. 19 Insulin Lispro, Inject 15-20 45 mL 5 02/07/20 Discontinued Human, (HUMALOG) 100 Units beneath 0 19 UNIT/ML Subcutaneous the skin THREE SolutionIndications: TIMES DAILY. Diabetes mellitus Bb17 bl15 bs (HCC) 20 insulin glargine, Inject 70 0 02/07/20 Discontinued LONG-Acting, Units beneath 19 (LANTUS) 100 UNIT/ML the skin EVERY Subcutaneous EVENING. Solution clonazePAM Take 0.5 mg by 0 02/07/20 Discontinued (KLONOPIN) 0.5 MG mouth EVERY 19 Oral Tab BEDTIME. citalopram (CELEXA) Take 40 mg by 0 02/07/20 Discontinued 40 MG Oral Tab mouth DAILY. 19 cyclobenzaprine Take 10 mg by 0 02/07/20 Discontinued (FLEXERIL) 10 MG mouth THREE 19 Oral Tab TIMES DAILY. OXYcodone Take 5 mg by 0 02/07/20 Discontinued (OXY-IR,OXY-FAST) 5 mouth THREE 19 MG Oral Tab TIMES DAILY NEEDED. HYDROcodone-acetamin Take 1-2 Tabs 60 Tab 0 02/07/20 Discontinued ophen (NORCO) 5-325 by mouth EVERY 2 19 MG Oral Tab FOUR HOURS NEEDED (pain). furosemide (LASIX) Take 1 Tab by 7 Tab 0 02/07/20 Discontinued 40 MG Oral Tab mouth DAILY. 2 19 simvastatin (ZOCOR) Take 80 mg by 0 02/07/20 Discontinued 80 MG Oral Tab mouth EVERY 19 BEDTIME. Omeprazole delayed Take 20 mg by 0 02/07/20 Discontinued rel cap 20 MG Oral mouth TWICE 19 CAPSULE DELAYED DAILY. RELEASE prazosin (MINIPRESS) Take 4 mg by 0 02/07/20 Discontinued 2 MG Oral Cap mouth EVERY 19 BEDTIME. cephalexin (KEFLEX) Take 1 Cap by 56 Cap 0 02/07/20 Discontinued 500 MG Oral Cap mouth FOUR 2 19 TIMES DAILY. clopidogrel (PLAVIX) Take 75 mg by 0 02/07/20 Discontinued 75 MG Oral Tab mouth DAILY. 19 Heparin Sodium, by Injection 0 02/07/20 Discontinued Porcine, (HEPARIN route. 19 COMBINATION IJ) Magnesium 400 MG Take by 0 02/07/20 Discontinued Oral Cap mouth. 19 NICOTINE NA Gardner in 0 02/07/20 Discontinued nose. 19 PANTOPRAZOLE SODIUM Take by 0 02/07/20 Discontinued PO mouth. 19 Potassium Chloride Take by 0 02/07/20 Discontinued 40 MEQ/15ML (20%) mouth. 19 Oral Solution metFORMIN Take 500 mg by 0 02/07/20 Discontinued (GLUCOPHAGE XR) 500 mouth. 19 MG Oral TABLET SR 24 HR GLARGINE insulin, Inject 34 0 02/11/20 Discontinued LONG-Acting, Units beneath 19 (Reorder) (LANTUS) 100 UNIT/ML the skin EVERY Subcutaneous BEDTIME. Solution metoprolol succinate Take 1 Tab by 90 Tab 3 02/11/20 Discontinued (TOPROL XL) 50 MG mouth DAILY. 9 19 (Reorder) Oral TABLET SR 24 HR documented as of this encounter (statuses as of 02/11/2019) Active Problems Problem Noted Date Severe aortic valve stenosis 02/09/2019 History of cardiac pacemaker 02/09/2019 History of OK (myocardial infarction) 08/28/2011 Overview: The patient states he has had three documented previous myocardial infarctions. As per his records, he feels he may have had up to seven. The patient has had several coronary interventions in the past such as left coronary artery stenting in 2001, right coronary artery stenting in 2003. S/P CABG (coronary artery bypass graft) 08/19/11 08/20/2011 Overview: 08/19/11 PROCEDURE: Coronary artery bypass grafting times three, left internal mammary artery to left anterior descending, saphenous vein graft to obtuse marginal one, and saphenous vein graft to right-sided posterolateral branch. Diabetes mellitus 06/15/2008 Overview: Diagnosis 1993, insulin 2003 Pain in joint, shoulder region 07/18/2005 Hyperlipidemia Overview: Lab Results Lab Results Value Date/Time CHOL 99 08/26/2007 1200 TRIG 66 08/26/2007 1200 HDL 30 08/26/2007 1200 LDL 56 08/26/2007 1200 LDLHDLRATIO 1.9 08/26/2007 1200 CHOLHDLRATIO 3.3 08/26/2007 1200 Coronary artery disease Overview: 08/19/11 PROCEDURE: Coronary artery bypass grafting times three, left internal mammary artery to left anterior descending, saphenous vein graft to obtuse marginal one, and saphenous vein graft to right-sided posterolateral branch Gastroesophageal reflux disease Hypertension documented as of this encounter (statuses as of 02/11/2019) Social History Tobacco Use Types Packs/Day Years Used Date Current Some Day Smoker Cigarettes 0.25 56 Quit: 08/08/2011 Smokeless Tobacco: Never Used Comments: quit smoking in 2001 Alcohol Use Drinks/Week oz/Week Comments No Hx of alcohol abuse . Quit 11 years ago Sex Assigned at Date Recorded Not on file Job Start Date Occupation Industry Not on file Not on file Not on file Travel History Travel Start Travel End No recent travel history available. documented as of this encounter Last Filed Vital Signs Vital Sign Reading Time Taken Comments Blood Pressure 130/67 02/10/2019 12:00 PM EST Pulse 61 02/10/2019 12:00 PM EST Temperature 36.2 02/10/2019 12:00 C (97.1 PM EST F) Respiratory Rate 18 02/10/2019 12:00 PM EST Oxygen Saturation 99% 02/10/2019 12:00 PM EST Inhaled Oxygen - - Concentration Weight 76.3 kg (168 lb 5 02/09/2019 4:30 oz) AM EST Height 188 cm (6' 2") 02/06/2019 6:00 Told to me by PM EST Mandy Chavarria Body Mass Index 21.61 02/06/2019 6:00 PM EST documented in this encounter Discharge Summaries Darin Chavez Jr., PA-C - 02/10/2019 4:08 PM EST [facility] [place] [address] Discharge Summary Patient ID: Sushant Lindquist [id number] 73-y.o. 1945 Admission date: 02/06/2019 Discharge date: 02/10/2019 Admitting Physician: Charles Jimenez MD Discharge Physician: Charles Jimenez MD Indication for Admission: chest pain and shortness of breath Principal Diagnosis: Severe aortic valve stenosis Other medical problems managed in the hospital: DM, Mobitz2 type 2 AV block. Discharged Condition: good Hospital Course: Who presented to OSH with the chief complaint of chest pain. Patient was also hospitalized recently at [facility] where he was reportedly found to have severe aortic stenosis, he underwent a cardiac cath at that time and was being planned for possible TAVR. Patient states he was recently hospitalized at [facility] about 2 weeks ago after falling at home, per the patient he was found to have multiple rib fractures on the left. However CT PE done today at outside hospital was not read with any rib fractures. At the outside hospital today, patient was found to have chronic ST-T wave changes seen on EKG, positive d-dimer, troponin of 0.07 (0.03 cutoff), patient had a normal CT PE which is demonstrated chronic right subclavian venous stenosis which has been present since 2012. Patient does note more symptoms of lightheadedness and dizziness since his hospitalization, but no syncope episodes. These episodes are non-positional and not exactly exertional in nature. There are noalleviating symptoms or exacerbating symptoms. He was seen by EP: 1. Sinus bradycardia with multiple blocked APCs EKG and telemetry reviewed. Patient has frequent PACs with occasional non- conducted beats. In fact, there are several blocked p-complexes which are over 100 ms distal to the previous refractory periods, indicating the existence of underlying AV cadence conduction disease. Given patient's syncopal episodes, recommend placement of PPM. He was seen by CTS and thought to be a better candidate for TAVR and PCI (if indicated) a review of his cardiac cath with Dr. browne resulted in his opinion that it was not an impediment for TAVR and could be medically managed for now. Mr. Sushant Lindquist is a 73-y.o. male with a past medical history significant for: 1. CAD s/p CABG in 2011 with FERNANDEZ - LAD, SVG - OM1, SVG - PLB 2. HTN 3. DMTII (HBG A1C of 12.6) 4. HLD Consults: CONSULT TO ELECTROPHYSIOLOGY(CARDIOLOGY/DEVICE IMPLANT) CONSULT TO DIETARY CONSULT TO TEACHING ASSISTANT/CASE MANAGEMENT CONSULT TO CARDIO/THORACIC SURGERY Treatments: analgesia cardiac meds insulin wound care Operations: none Procedures: PPM implant for sick sinus IMPLANTATION OF PACEMAKER AND LEADS Implant Name Type Inv. Item Serial No. Mastic Worker Lot No. LRB No. Used ASSURITY MRI [id number] GENERATOR - [id number] ASSURITY MRI [id number] GENERATOR [id number] [employer] Left 1 LEAD, TENDRIL MRI [id number] - [id number] LEAD, TENDRIL MRI [id number] [employer] Left 1 LEAD, TENDRIL MRI [id number] - [id number] LEAD, TENDRIL MRI [id number] [employer] Left 1 Lab Results Component Value Date WBC 8.53 02/10/2019 HGB 11.6 (L) 02/10/2019 HCT 35.7 (L) 02/10/2019 PLAT 200 02/10/2019 Lab Results Component Value Date NA 139 02/10/2019 K 4.4 02/10/2019 CL 105 02/10/2019 CO2 30 02/10/2019 GLUCOSE 215 (H) 02/10/2019 BUN 18 02/10/2019 CREATININE 0.8 02/10/2019 CALCIUM 9.0 02/10/2019 TP 6.4 02/06/2019 ALBUMIN 3.5 02/06/2019 AST 16 (L) 02/06/2019 ALT 25 02/06/2019 ALK 128 02/06/2019 TBILI 0.5 02/06/2019 EGFR >60 02/10/2019 transthoracic echocardiogram 02/06/19 FINAL IMPRESSION: Moderate concentric LVH. Global systolic function is normal with estimated LVEF 55-60%. Grade II diastolic dysfunction. Normal right heart size and RV systolic function. Severe aortic stenosis. Estimated pulmonary artery systolic pressure is in the upper normal range. Mild ascending aorta dilation. No pericardial effusion. Complications: none Medications: Current Discharge Medication List START taking these medications metoprolol succinate 50 MG Tb24 Commonly known as: TOPROL XL Dose: 50 mg Start taking on: February 11, 2019 Quantity: 90 Tab Refills: 3 Take 1 Tab by mouth DAILY. CONTINUE these medications which have changed LANTUS 100 UNIT/ML Soln Generic drug: GLARGINE insulin (LONG-Acting) Dose: 38 Units What changed: how much to take Refills: 0 Inject 38 Units beneath the skin EVERY BEDTIME. CONTINUE these medications which have NOT CHANGED Aspirin 81 MG Tabs Dose: 81 mg Refills: 0 Take 81 mg by mouth DAILY. atorvastatin 40 MG Tabs Commonly known as: LIPITOR Dose: 40 mg Refills: 0 Take 40 mg by mouth DAILY. BLOOD GLUCOSE TEST STRIPS STRP Quantity: 50 Strip Refills: 3 FOUR TIMES DAILY. [employer] Cholecalciferol 25 MCG (1000 UT) Caps Dose: 1 Each Refills: 0 Take 1 Each by mouth DAILY. gabapentin 300 MG Caps Commonly known as: NEURONTIN Dose: 300 mg Refills: 0 Take 300 mg by mouth THREE TIMES DAILY. metFORMIN 500 MG Tabs Commonly known as: GLUCOPHAGE Dose: 500 mg Refills: 0 Take 500 mg by mouth TWICE DAILY. MINIPRESS PO Dose: 4 mg Refills: 0 Take 4 mg by mouth EVERY BEDTIME. MIRALAX Powd Generic drug: polyethylene glycol Dose: 17 g Refills: 0 Take 17 g by mouth DAILY NEEDED. NAPROXEN PO Dose: 1 Tab Refills: 0 Take 1 Tab by mouth TWICE DAILY. NESINA 25 MG Tabs Generic drug: Alogliptin Benzoate Dose: 1 Tab Refills: 0 Take 1 Tab by mouth DAILY. OXYcodone 5 MG Tabs Commonly known as: OXY-IR,OXY-FAST Dose: 5 mg Refills: 0 Take 5 mg by mouth THREE TIMES DAILY NEEDED. Pen [place] 31G X 8 MM Misc Dose: 1 Each Quantity: 400 Each Refills: 3 1 Each by Does not apply route FOUR TIMES DAILY. BD UF 31G short pen needles inject qid PLAVIX 75 MG Tabs Generic drug: clopidogrel Dose: 75 mg Refills: 0 Take 75 mg by mouth DAILY. Potassium Chloride ER 20 MEQ Tbcr Dose: 40 mEq Refills: 0 Take 40 mEq by mouth DAILY. PROTONIX 40 MG Tbec Generic drug: pantoprazole Dose: 40 mg Refills: 0 Take 40 mg by mouth DAILY. THIOCTIC ACID 100 MG Caps Dose: 1 Cap Refills: 0 Take 1 Cap by mouth THREE TIMES DAILY. TRENTAL PO Dose: 400 mg Refills: 0 Take 400 mg by mouth EVERY EIGHT HOURS. venlafaxine 150 MG Cp24 Commonly known as: EFFEXOR XR Dose: 150 mg Refills: 0 Take 150 mg by mouth. Where to Get Your Medications Information about where to get these medications is not yet available Ask your nurse or doctor about these medications metoprolol succinate 50 MG Tb24 Oxygen or Positive Pressure Devices: none Patient Instructions: Activity/Restrictions: no heavy lifting, pushing, pulling with the implant side for 2 months and no driving for 2 weeks Skin/Wound Care: Shower with bandage in place Discharge Diet: Cardiac Diet Special Instructions: stop smoking Follow-Up: as per cardiology for TAVR CTA and wound care nurse for PPM implant inspection, PCP in two weeks to discuss insulin management Provider Signature: Darin Chavez Jr., PA-C This discharge took over 30 min. documented in this encounter Discharge Instructions InstructionsAmber Beck RN - 02/10/2019Provider's Instructions Reason for Admission or Diagnosis:Severe aortic valve stenosis Activity/Restrictions: no heavy lifting, pushing, pulling with the implant side for 2 months and no driving for 2 weeks Skin/Wound Care: Shower with bandage in place Discharge Diet: Cardiac Diet Special Instructions: stop smoking Discharge Provider: Darin Chavez Jr., PA-C Attending: Charles Jimenez,* Time: 16:19 Nurse's Instructions Problems to report to your Physician: Excessive pain or discomfort Fever > 100.5 degrees Difficulty breathing Increase or smell in wound drainage Skin/Wound Care: Skin intact on discharge: May shower Medical Equipment/Supplies to help you at home: non-applicable documented in this encounter Progress Notes Cecile Roach MD - 02/09/2019 12:31 PM EST [address] [address] Internal Medicine Progress Note Date of Service: 02/09/2019 Patient: Sushant Lindquist Adilson #: [id number] Attending: CHARLES JIMENEZ MD ,MD Subjective: Day 3 of hospitalization Overnight events: No acute overnight events. Current Symptoms: Patient underwent permanent pacemaker placement today. Vitally stable. No active chest pain Objective: Alert, oriented x3 General: cooperative Heart: regular rate & rhythm Lungs: clear to auscultation and percussion Abd: soft, nontender, nondistended, no masses or organomegaly; BS normal Ext: no edema Neuro: no focal deficits Vitals: Blood pressure 138/69, pulse 60, temperature 97.9 F (36.6 C), temperature source Oral, resp. rate 18, height 6' 2" (1.88 m), weight 168 lb 5 oz (76.3 kg), SpO2 97 %. I/O: Intake/Output Summary (Last 24 hours) at 02/09/2019 1231 Last data filed at 02/09/2019 1045 Gross per 24 hour Intake 677 ml Output 575 ml Net 102 ml Relevant labs and Radiology Results: Recent Labs 02/07/1924702/08/1941702/09/19416 WBC 9.40* 7.93 7.08 HGB 12.3* 11.4* 11.8* HCT 37.7* 35.2* 36.3* PLAT 227 211 188 Recent Labs 02/06/19 18202/07/1924702/08/1941702/09/19416 NA 140 139 139 138 K 4.1 4.5 4.9 4.2 CL 104 103 105 104 CO2 29 30 33* 29 GLUCOSE 106* 319* 203* 377* BUN 15 14 13 19 CREATININE 0.8 0.8 0.8 0.8 EGFR >60 >60 >60 >60 CALCIUM 9.1 8.8 9.1 8.8 TP 6.4 -- -- -- ALBUMIN 3.5 -- -- -- ALK 128 -- -- -- AST 16* -- -- -- ALT 25 -- -- -- TBILI 0.5 -- -- -- XR CHEST 1 VIEW Final Result There is a pacemaker present over the left chest with leads in the right atrium and right ventricle. THIS DOCUMENT HAS BEEN ELECTRONICALLY SIGNED BY KVNG HERNANDEZ MD ELECTROPHYSIOLOGY PROCEDURE Final Result XR CHEST 1 VIEW Final Result No acute findings. Metallic sternotomy wires are in place THIS DOCUMENT HAS BEEN ELECTRONICALLY SIGNED BY LORRI JAMES MD Assessment/Plan: Principal Problem: Severe aortic valve stenosis Active Problems: Diabetes mellitus (HCC) Hyperlipidemia Coronary artery disease Gastroesophageal reflux disease Hypertension S/P CABG (coronary artery bypass graft) 08/19/11 History of OK (myocardial infarction) History of cardiac pacemaker History of CAD( s/p CABG in 2011) now p/w Chest Pain in setting of severe symptomatic : - Hx of CABG in 2011, fernandez to LAD, SVG to OM 1, SVG to PLB. - P/w Chest pain, tender on palpation. Currently chest pain free - Initial EKG with Chronic ST-T wave changes. TTE this admission shows normal EF with severe aortic stenosis. - Trop at OSH of 0.07. troponin continues to be indeterminate. - Catheterization report from outside hospital was reported to show severe triple-vessel upper [place]oux coronary artery disease, patent FERNANDEZ to LAD and patent bypass graft to RCA territory. Bypass graft to obtuse marginal territory was likely occluded. -Patient was noted to have severe obtuse marginal disease Today Plan: - CT surgery input appreciated. Patient is a candidate for TAVR and may need PCI to OM. Official LHCreport still not available to review. PCI decision once LHC reviewed. - pre TAVR orders placed by CT surgery( PFT, carotid dopplers, GEOVANNY) - C/w ASA, Plavix, and Lipitor 80mg QHS - Continue Telemetry Severe symptomatic : CT surgery input appreciated. Patient is TAVR candidate. Awaiting [facility] report Rest ab above Sinus Sick Syndrome: PPM placed today. Will monitor for post PPM complication DM2 Glargine 20u QHS, POC, ISS Gabapentin HTN Prazosin HLD Lipitor Psych Effexor PVD Pentoxifylline Not formulary GERD Protonix DVTp - Lovenox Discussed with Author: Cecile Roach MD Associated attestation - Charles Jimenez MD - 02/09/2019 8:50 PM ELBA saw and evaluated the patient on 02/09/19 and agree with the resident's findings and plan as documented. 1. Coronary artery disease and previous CABG -Catheterization report from outside hospital was reported to show severe triple -vessel upper si[place] coronary artery disease, patent FERNANDEZ to LAD and patent bypass graft to RCA territory. Bypass graft to obtuse marginal territory was likely occluded. -Patient was noted to have severe obtuse marginal disease -We are still awaiting films from outside hospital, if we do not get the films by tomorrow, we will consider outpatient evaluation for consideration of PCI to the obtuse marginal in tandem with ongoingevaluation for TAVR. 2. Severe symptomatic aortic stenosis -Referred to TAVR team as an outpatient 3. Sick sinus syndrome, status post dual-chamber permanent pacemaker implantation Likely discharge tomorrow. Charles Jimenez MD 02/09/19 20:48 Cecile Roach MD - 02/08/2019 2:47 PM EST [address] [address] Internal Medicine Progress Note Date of Service: 02/08/2019 Patient: Sushant De Anda #: [id number] Attending: CHARLES JIMENEZ MD ,MD Subjective: Day 2 of hospitalization Overnight events: No acute overnight events. Current Symptoms: Denies chest pain,Sob,fever. Objective: Alert, oriented x3 General: cooperative Heart: regular rate & rhythm Lungs: clear to auscultation and percussion Abd: soft, nontender, nondistended, no masses or organomegaly; BS normal Ext: no edema Neuro: no focal deficits Vitals: Blood pressure 147/68, pulse 51, temperature 98 F (36.7 C), temperature source Oral,resp. rate 20, height 6' 2" (1.88 m), weight 168 lb 2 oz (76.3 kg), SpO2 100 %. I/O: Intake/Output Summary (Last 24 hours) at 02/08/2019 1447 Last data filed at 02/08/2019 1000 Gross per 24 hour Intake 570 ml Output 275 ml Net 295 ml Relevant labs and Radiology Results: Recent Labs 02/06/192 02/07/19 0248 02/08/198 WBC 10.56* 9.40* 7.93 HGB 12.9* 12.3* 11.4* HCT 40.7 37.7* 35.2* PLAT 254 227 211 Recent Labs 02/06/19 1822 02/07/19 0248 02/08/198 NA 140 139 139 K 4.1 4.5 4.9 CL 104 103 105 CO2 29 30 33* GLUCOSE 106* 319* 203* BUN 15 14 13 CREATININE 0.8 0.8 0.8 EGFR >60 >60 >60 CALCIUM 9.1 8.8 9.1 TP 6.4 -- -- ALBUMIN 3.5 -- -- ALK 128 -- -- AST 16* -- -- ALT 25 -- -- TBILI 0.5 -- -- XR CHEST 1 VIEW Final Result No acute findings. Metallic sternotomy wires are in place THIS DOCUMENT HAS BEEN ELECTRONICALLY SIGNED BY LORRI JAMES MD Assessment/Plan: Active Problems: * No active hospital problems. * Acute coronary Syndrome Hx of CABG in 2011, fernandez to LAD, SVG to OM 1, SVG to PLB. P/w Chest pain, tender on palpation. Currently chest pain free Ddx - Rib injury, Costochondritis, Aortic Stenosis EKG with Chronic ST-T wave changes. Trop at OSH of 0.07 (Cutoff of 0.03). Initial troponin here was Indeterminate. Got ASA and Therapeutic Lovenox at OSH -troponin trending down - C/w ASA, Plavix, Increasing Lipitor to 80mg QHS - TTE shows Global systolic function is normal with estimated LVEF 55-60%. Grade II diastolic dysfunction.Severe aortic stenosis - Will obtain OSH records ( [facility] for Cardiac Cath) - will monitor onTelemetry Severe Per OSH reports Appears Normo-volemic at this time. - TTE shows Severe aortic stenosis - Will need to obtain OSH records ( [facility] for Cardiac Cath) Sinus Arrhythmia vs. Mobitz II on Telemetry Currently Asymptomatic Will continue to monitor on telemetry DM2 Glargine 20u QHS, POC, ISS Gabapentin HTN Prazosin HLD Lipitor Psych Effexor PVD Pentoxifylline Not formulary GERD Protonix DVTp - Lovenox Discussed with Author: Cecile Roach MD Associated attestation - Charles Jimenez MD - 02/08/2019 8:51 PM ELBA saw and evaluated the patient on 02/08/19 and agree with the resident's findings and plan as documented. 1. Coronary artery disease and previous CABG -Catheterization report from outside hospital was reported to show severe triple -vessel upper [place] coronary artery disease, patent FERNANDEZ to LAD and patent bypass graft to RCA territory. Bypass graft to obtuse marginal territory was likely occluded. -Patient was noted to have severe obtuse marginal disease 2. Severe symptomatic aortic stenosis 3. Sick sinus syndrome, for permanent pacemaker implantation tomorrow We will consult CT surgery for consideration of AVR, depending on their recommendations we will refer her to TAVR team and also consider intervention to obtuse marginal. Charles Jimenez MD 02/08/19 20:49 Cecile Roach MD - 02/07/2019 12:35 PM EST [address] [place] [address] Internal Medicine Progress Note Date of Service: 02/07/2019 Patient: Sushant De Anda #: [id number] Attending: CHARLES JIMENEZ MD ,MD Subjective: Day 1 of hospitalization Overnight events: No acute overnight events. Current Symptoms: Denies chest pain,Sob,fever. Objective: Alert, oriented x3 General: cooperative Heart: regular rate & rhythm Lungs: clear to auscultation and percussion Abd: soft, nontender, nondistended, no masses or organomegaly; BS normal Ext: no edema Neuro: no focal deficits Vitals: Blood pressure 146/79, pulse 68, temperature 97.9 F (36.6 C), temperature source Oral, resp. rate 20, height 6' 2" (1.88 m), weight 165 lb 11.2 oz (75.2 kg), SpO2 99 %. I/O: No intake or output data in the 24 hours ending 02/07/19 1235 Relevant labs and Radiology Results: Recent Labs 02/06/19 1822 02/07/19 0248 WBC 10.56* 9.40* HGB 12.9* 12.3* HCT 40.7 37.7* PLAT 254 227 Recent Labs 02/06/19 1822 02/07/19 0248 NA 140 139 K 4.1 4.5 CL 104 103 CO2 29 30 GLUCOSE 106* 319* BUN 15 14 CREATININE 0.8 0.8 EGFR >60 >60 CALCIUM 9.1 8.8 TP 6.4 -- ALBUMIN 3.5 -- ALK 128 -- AST 16* -- ALT 25 -- TBILI 0.5 -- XR CHEST 1 VIEW Final Result No acute findings. Metallic sternotomy wires are in place THIS DOCUMENT HAS BEEN ELECTRONICALLY SIGNED BY LORRI JAMES MD Assessment/Plan: Active Problems: * No active hospital problems. * Unstable Angina Hx of CABG in 2011, fernandez to LAD, SVG to OM 1, SVG to PLB. P/w Chest pain, tender on palpation. Currently chest pain free Ddx - Rib injury, Costochondritis, Aortic Stenosis EKG with Chronic ST-T wave changes. Trop at OSH of 0.07 (Cutoff of 0.03). Initial troponin here was Indeterminate. Got ASA and Therapeutic Lovenox at OSH - Trend Troponins. Currently indeterminate. - C/w ASA, Plavix, Increasing Lipitor to 80mg QHS - TTE ordered - Will need to obtain OSH records ( [facility] for Cardiac Cath) - Lidoderm patch for Rib trauma. - Telemetry Severe Per OSH reports Appears Normo-volemic at this time. - TTE ordered - Will need to obtain OSH records ( [facility] for Cardiac Cath) Sinus Arrhythmia vs. Mobitz II on Telemetry Currently Asymptomatic Will continue to monitor on telemetry DM2 Glargine 20u QHS, POC, ISS Gabapentin HTN Prazosin HLD Lipitor Psych Effexor PVD Pentoxifylline Not formulary GERD Protonix DVTp - Lovenox Discussed with Isolation Status: MRSA- Active Author: Cecile Roach MD Associated attestation - Charles Jimenez MD - 02/07/2019 4:58 PM ELBA saw and evaluated the patient on 02/07/19 and agree with the resident's findings and plan as documented in H&P Charles Jimenez MD 02/07/19 16:57 documented in this encounter Plan of Treatment Date Type Specialty Care Team Description 02/23/2019 Cardiology Cardiology Nurse/clinical support 03/24/2019 Office Visit Arrhythmia Center 05/12/2019 Office Visit Cardiology Brooke Rosado PA [address] [place] [address] [phone] Name Type Priority Associated Diagnoses Date/Time INPT/ED 12 LEAD EKG EKG Routine 02/09/2019 7:42 AM EST VL NECK CAROTID Imaging Routine 02/09/2019 4:15 PM EST BILATERAL VL BODY MEASURE GEOVANNY Imaging Routine 02/09/2019 3:27 PM EST MULTIPLE Health Maintenance Due Date Last Done Comments DEPRESSION SCREENING 1957 HIV SCREENING 1960 ZOSTER IMMUNIZATION SERIES (1 of 07/14/1995 2) FALL RISK ASSESSMENT 2010 PNEUMOCOCCAL 65+YRS (1 of 2 - 2010 PCV13) Colonoscopy 06/13/2014 06/13/2005 INFLUENZA VACCINE (#1) 2018 HEPATITIS C SCREENING Completed 02/07/2019 HPV IMMUNIZATION SERIES Aged Out No longer eligible based on patient's age to complete this topic MENINGOCOCCAL VACCINE IMM Aged Out No longer eligible based on patient's age to complete this topic documented as of this encounter Implants Implanted Type Area Mastic Worker Device Shelf Model / Identifier Expiration Date Serial / Lot Assurity Mri [id number] Generator - [id number] [employer], 2020 [id number] / Implanted: Qty: 1 on 02/09/2019 by Dante Oh MD at [facility]. [id number] / Lead, Tendril Mri [id number] - [id number] [employer], 2020 [id number] / Implanted: Qty: 1 on 02/09/2019 by Dante Oh MD at [facility] [id number] / Lead, Tendril Mri [id number] - [id number] [employer], 2020 [id number] / Implanted: Qty: 1 on 02/09/2019 by Dante Oh MD at [facility]. [id number] / documented as of this encounter Procedures Procedure Name Priority Date/Time Associated Diagnosis Comments HC GLUCOSE, BY MONITOR Routine 02/10/2019 11:55 Results for this AM EST procedure are in the results section. HC GLUCOSE, BY MONITOR Routine 02/10/2019 8:10 Results for this AM EST procedure are in the results section. XR CHEST 2 VIEW PA AND STAT 02/10/2019 7:41 Results for this LATERAL (STANDARD) AM EST procedure are in the results section. MAGNESIUM LEVEL Routine 02/10/2019 4:19 Results for this AM EST procedure are in the results section. BASIC METABOLIC PANEL Routine 02/10/2019 4:19 Results for this AM EST procedure are in the results section. CBC NO DIFFERENTIAL Routine 02/10/2019 4:19 Results for this AM EST procedure are in the results section. POTASSIUM Routine 02/09/2019 11:47 Results for this PM EST procedure are in the results section. MAGNESIUM LEVEL Routine 02/09/2019 11:47 Results for this PM EST procedure are in the results section. HC GLUCOSE, BY MONITOR Routine 02/09/2019 9:13 Results for this PM EST procedure are in the results section. HC GLUCOSE, BY MONITOR Routine 02/09/2019 4:47 Results for this PM EST procedure are in the results section. HC GLUCOSE, BY MONITOR Routine 02/09/2019 11:44 Results for this AM EST procedure are in the results section. PFT ROUTINE STUDIES Routine 02/09/2019 11:06 Results for this AM EST procedure are in the results section. XR CHEST 1 VIEW STAT 02/09/2019 9:07 Results for this AM EST procedure are in the results section. HC GLUCOSE, BY MONITOR Routine 02/09/2019 7:50 Results for this AM EST procedure are in the results section. IMPLANT PERMANENT Routine 02/09/2019 6:31 Results for this PACEMAKER INSERTION AM EST procedure are in the results section. MAGNESIUM LEVEL Routine 02/09/2019 4:17 Results for this AM EST procedure are in the results section. GLYCOHEMOGLOBIN A1C Routine 02/09/2019 4:17 Results for this AM EST procedure are in the results section. BASIC METABOLIC PANEL Routine 02/09/2019 4:17 Results for this AM EST procedure are in the results section. CBC NO DIFFERENTIAL Routine 02/09/2019 4:17 Results for this AM EST procedure are in the results section. HC GLUCOSE, BY MONITOR Routine 02/08/2019 9:43 Results for this PM EST procedure are in the results section. HC GLUCOSE, BY MONITOR Routine 02/08/2019 5:08 Results for this PM EST procedure are in the results section. HC GLUCOSE, BY MONITOR Routine 02/08/2019 11:44 Results for this AM EST procedure are in the results section. ECHOCARDIOGRAM TTE Routine 02/08/2019 9:13 Results for this AM EST procedure are in the results section. HC GLUCOSE, BY MONITOR Routine 02/08/2019 7:35 Results for this AM EST procedure are in the results section. BASIC METABOLIC PANEL Routine 02/08/2019 4:18 Results for this AM EST procedure are in the results section. CBC NO DIFFERENTIAL Routine 02/08/2019 4:18 Results for this AM EST procedure are in the results section. HC GLUCOSE, BY MONITOR Routine 02/07/2019 8:42 Results for this PM EST procedure are in the results section. HC GLUCOSE, BY MONITOR Routine 02/07/2019 4:16 Results for this PM EST procedure are in the results section. IN PT/ED 12 LEAD EKG Routine 02/07/2019 3:45 Nonrheumatic aortic Results for this PM EST (valve) stenosis procedure are in the results section. HC GLUCOSE, BY MONITOR Routine 02/07/2019 11:27 Results for this AM EST procedure are in the results section. TROPONIN STAT 02/07/2019 10:47 Results for this AM EST procedure are in the results section. CBC WITH DIFFERENTIAL Routine 02/07/2019 2:48 Results for this AM EST procedure are in the results section. HEPATITIS C ANTIBODY Routine 02/07/2019 2:48 Results for this AM EST procedure are in the results section. TROPONIN STAT 02/07/2019 2:48 Results for this AM EST procedure are in the results section. MAGNESIUM LEVEL Routine 02/07/2019 2:48 Results for this AM EST procedure are in the results section. BASIC METABOLIC PANEL Routine 02/07/2019 2:48 Results for this AM EST procedure are in the results section. HC GLUCOSE, BY MONITOR Routine 02/06/2019 9:44 Results for this PM EST procedure are in the results section. XR CHEST 1 VIEW STAT 02/06/2019 7:14 Results for this PM EST procedure are in the results section. MRSA BY PCR (NASAL) STAT 02/06/2019 6:59 Results for this PM EST procedure are in the results section. CBC WITH DIFFERENTIAL STAT 02/06/2019 6:22 Results for this PM EST procedure are in the results section. NT PROBNP STAT 02/06/2019 6:22 Results for this PM EST procedure are in the results section. TROPONIN STAT 02/06/2019 6:22 Results for this PM EST procedure are in the results section. COMPREHENSIVE METABOLIC STAT 02/06/2019 6:22 Results for this PANEL PM EST procedure are in the results section. PROTHROMBIN TIME Routine 02/06/2019 6:22 Results for this PM EST procedure are in the results section. PARTIAL THROMBOPLASTIN Routine 02/06/2019 6:22 Results for this TIME PM EST procedure are in the results section. IN PT/ED 12 LEAD EKG STAT 02/06/2019 5:47 Non-ST elevation Results for this PM EST (NSTEMI) myocardial procedure are in infarction (HCC) the results section. CT CHEST WITHOUT IV Routine 02/06/2019 12:05 Pain CONTRAST AM EST XR CHEST 1 VIEW Routine 02/06/2019 12:00 Pain AM EST documented in this encounter Results GLUCOSE (POCT) (02/10/2019 11:55 AM EST) Glucose POCT 317 (H) 70 - 99 mg/dl POINT OF CARE Result Comment: TESTING Performed at: [facility] POCT Ayush Chahal MD, Laboratory Screwdown Operator [address] [place] [address] Specimen Performing Organization Address City/[facility] Services[facility] Phone Number POINT OF CARE TESTING GLUCOSE (POCT) (02/10/2019 8:10 AM EST) Glucose POCT 213 (H) 70 - 99 mg/dl POINT OF CARE Result Comment: TESTING Performed at: [facility] POCT Ayush Chahal MD, Laboratory Screwdown Operator [address] [place] [address] Specimen Performing Organization Address [facility] Phone Number POINT OF CARE TESTING XR CHEST 2 VIEW PA AND LATERAL (STANDARD) (02/10/2019 7:41 AM EST) Specimen Impressions Performed At No acute findings. Signed by Selwyn Cox on 02/10/2019 7:45 AM Narrative Performed At Procedure(s): XR CHEST 2 VIEW PA AND LATERAL (STANDARD) Date of service: 02/10/2019 7:34 AM Provided clinical information: 73 years, Male, "Post PPM/ICD implant. Discharge pending results" Procedure and materials: Standard protocol. Comparison studies: 02/09/2019 Observations: Sternotomy wires and pacemaker remain in place without change. The lungs are clear. There is no pneumothorax or effusion. The cardiomediastinal silhouette is normal. There is no acute osseous abnormality. Procedure Note Interface, Rad Results - 02/10/2019 7:47 AM EST Procedure(s): XR CHEST 2 VIEW PA AND LATERAL (STANDARD) Date of service: 02/10/2019 7:34 AM Provided clinical information: 73 years, Male, "Post PPM/ICD implant. Discharge pending results" Procedure and materials: Standard protocol. Comparison studies: 02/09/2019 Observations: Sternotomy wires and pacemaker remain in place without change. The lungs are clear. There is no pneumothorax or effusion. The cardiomediastinal silhouette is normal. There is no acute osseous abnormality. IMPRESSION No acute findings. Signed by Selwyn Cox on 02/10/2019 7:45 AM MAGNESIUM LEVEL (02/10/2019 4:19 AM EST) Magnesium 1.8 1.6 - 2.3 MG/DL [facility] Specimen Blood - Blood specimen (specimen) Performing Organization Address City/State/Zipcode Phone Number [facility] [address] [facility] [address] [phone] BASIC METABOLIC PANEL (02/10/2019 4:19 AM EST) Glucose 215 (H) 70 - 99 mg/dl [facility] BUN 18 9 - 20 mg/dl [facility] Creatinine 0.8 0.8 - 1.5 mg/dl [facility] Sodium 139 134 - 145 mmol/L [facility] Potassium 4.4 3.5 - 5.1 mmol/L [facility] Chloride 105 98 - 107 mmol/L [facility] CO2 30 22 - 30 mmol/L [facility] Calcium 9.0 8.3 - 10.1 mg/dl [facility] eGFR >60 See Interpretation [facility] Comment: Below ml/min/1.73ml GROUP Estimated GFR Interpretation: Sq LABORATORY Above 60ml/min/1.73m2 = Normal Renal Function 30-59 ml/min/1.73m2 = Stage 3 Chronic Kidney Disease 15-29 ml/min/1.73m2 = Stage 4 Chronic Kidney Disease Less than 15 ml/min/1.73m2 = Stage 5 Chronic Kidney Disease The GFR value is calculated using the Modification of Diet in Renal Disease ( MDRD) Study Equation which can be found at: https://www.kidney.org/content/gizw-finqx-rkoajkqb BUN/Creatinine 23 (H) 6 - 22 RATIO [facility] GROUP LABORATORY Anion Gap 4 3 - 11 mmol/L [facility] Specimen Blood - Blood specimen (specimen) Performing Organization Address [facility] Services[facility] Phone Number [facility] [address] [place] [address] [phone] CBC NO DIFFERENTIAL (02/10/2019 4:19 AM EST) WBC Count 8.53Comment: 4.23 - 9.07 [facility] Methodology was K/uL GROUP LABORATORY changed 03/19/2018. Please note updated reference range and units. RBC Count 4.26 (L) 4.30 - 5.89 [facility] M/UL [facility] Hemoglobin 11.6 (L) 13.7 - 17.5 [facility] g/dL [facility] Hematocrit 35.7 (L) 40.1 - 51.0 % [facility] MCV 83.8 79.0 - 92.2 [facility] FL [facility]ORY MCH 27.2 25.7 - 32.2 [facility] PG [facility] MCHC 32.5 32.3 - 36.5 [facility] g/dL [facility] Platelet Count 200 163 - 337 [facility] K/uL [facility] MPV 11.3 9.4 - 12.4 FL [facility] RDW 14.5 (H) 11.6 - 14.4 % [facility] Specimen Blood - Blood specimen (specimen) Performing Organization Address [facility] Phone Number [facility] [address] [place] [address] MAGNESIUM LEVEL (02/09/2019 11:47 PM EST) Magnesium 1.9 1.6 - 2.3 MG/DL [facility] Specimen Blood - Blood specimen (specimen) Performing Organization Address [facility] Services[facility] Phone Number [facility] [address] [place] [address] POTASSIUM (02/09/2019 11:47 PM EST) Potassium 4.2 3.5 - 5.1 mmol/L [facility] Specimen Blood - Blood specimen (specimen) Performing Organization Address [facility] Services[facility] Phone Number [facility] [address] [place] [address] [phone] GLUCOSE (POCT) (02/09/2019 9:13 PM EST) Glucose POCT 340 (H) 70 - 99 mg/dl POINT OF CARE Result Comment: TESTING Performed at: [facility] POCT Ayush Chahal MD, Laboratory Screwdown Operator [address] [place] [address] Specimen Performing Organization Address City/[facility] Services[facility] Phone Number POINT OF CARE TESTING GLUCOSE (POCT) (02/09/2019 4:47 PM EST) Glucose POCT 243 (H) 70 - 99 mg/dl POINT OF CARE Result Comment: TESTING Performed at: [facility] POCT Ayush Chahal MD, Laboratory Screwdown Operator [address] [place] [address] Specimen Performing Organization Address [facility] Phone Number POINT OF CARE TESTING GLUCOSE (POCT) (02/09/2019 11:44 AM EST) Glucose POCT 350 (H) 70 - 99 mg/dl POINT OF CARE Result Comment: TESTING Performed at: [facility] POCT Ayush Chahal MD, Laboratory Screwdown Operator [address] [place] [address] Specimen Performing Organization Address City/[facility] Phone Number POINT OF CARE TESTING PFT ROUTINE STUDIES (02/09/2019 11:06 AM EST) Specimen Narrative Performed At RESPIRATORY THER [facility] Pulmonary Function Lab [place] [id number] Last Name: SUSHANT LINDQUIST Room Number: 8NW Filler Shaker: CLAUDINE Date: 1945 Age: 73 Weight: 168.0 lbs, 76.4 kg Gender: Male Height: 73.5 in, 186.7 cm Physician Name: BELTRAN JIN ([id number]) Date: 02/09/2019 11:06:05 AM Smoke Status: Quit BMI: 21.91 kg/m2 Predicted Protocol: MOD 01 [facility] NHANESIII C IMPREGNATOR [employer] NOTES 4 Puffs Albuterol Administered Click "view image" for full report Spirometry Test Quality:4 DLCO Test Quality:4 DLCO Corrected to HGB of:11.8 Diagnosis / Reason for Test: PRE OP CABG Last Study:NO PREVIOUS STUDY GOOD EFFORT. PT. COULD NOT REACH END EXPIRATION DURING FVC. PT HAD TERRIBLE COUGH DURING PRE AND PT. STATED THE INHALER HELPED. PHYSICIAN INTERPRETATION FINDINGS: Based on patient effort and technical quality the study is acceptable for interpretation. Spirometry shows moderate airflow obstruction with slight improvement in the FEV1 after bronchodilator. DLCO is normal. IMPRESSION: Findings are consistent with moderate obstructive pulmonary disease. The lack of significant improvement after bronchodilator does not predict clinical response to these agents. Gas transfer is preserved. When compared with the patient's last prior study from August 2011, there has been some increase in FVC without change in FEV1. Interpreted by: Bill Yan MD Procedure Note Interface, Multispeciality Results - 02/09/2019 2:51 PM EST [facility] Pulmonary Function Lab [place] [id number] Last Name: SUSHANT LINDQUIST Room Number: 8NW Filler Shaker: MAUROB Date: 1945 Age: 73 Weight: 168.0 lbs, 76.4 kg Gender: Male Height: 73.5 in, 186.7 cm Physician Name: BELTRAN JIN ([id number]) Date: 02/09/2019 11:06:05 AM Smoke Status: Quit BMI: 21.91 kg/m2 Predicted Protocol: [facility]ES[facility] C IMPREGNATOR [employer] NOTES 4 Puffs Albuterol Administered Click "view image" for full report Spirometry Test Quality:4 DLCO Test Quality:4 DLCO Corrected to HGB of:11.8 Diagnosis / Reason for Test: PRE OP CABG Last Study:NO PREVIOUS STUDY GOOD EFFORT. PT. COULD NOT REACH END EXPIRATION DURING FVC. PT HAD TERRIBLE COUGH DURING PRE AND PT. STATED THE INHALER HELPED. PHYSICIAN INTERPRETATION FINDINGS: Based on patient effort and technical quality the study is acceptable for interpretation. Spirometry shows moderate airflow obstruction with slight improvement in the FEV1 after bronchodilator. DLCO is normal. IMPRESSION: Findings are consistent with moderate obstructive pulmonary disease. The lack of significant improvement after bronchodilator does not predict clinical response to these agents. Gas transfer is preserved. When compared with the patient's last prior study from August 2011, there has been some increase in FVC without change in FEV1. Interpreted by: Bill Yan MD Performing Organization Address City/State/Zipcode Phone Number RESPIRATORY THER XR CHEST 1 VIEW (02/09/2019 9:07 AM EST) Specimen Impressions Performed At There is a pacemaker present over the left chest with leads in the right atrium and right ventricle. THIS DOCUMENT HAS BEEN ELECTRONICALLY SIGNED BY KVNG HERNANDEZ MD Narrative Performed At PROCEDURE INFORMATION: Exam: XR Chest, 1 View Exam date and time: 02/09/2019 8:20 AM Age: 73 years old Clinical history: Indication for study->post ppm/icd implant TECHNIQUE: Imaging protocol: XR of the chest Views: 1 view. COMPARISON: DX XR CHEST 1 VIEW 02/06/2019 6:51 PM FINDINGS: Tubes, catheters and devices: There is a pacemaker present over the left chest with leads in the right atrium and right ventricle. Lungs: No consolidation. Pleural space: No pleural effusion. No pneumothorax. Heart/Mediastinum: Previous CABG in the Bones/joints: The median sternotomy. Procedure Note Interface, Rad Results - 02/09/2019 9:58 AM EST PROCEDURE INFORMATION: Exam: XR Chest, 1 View Exam date and time: 02/09/2019 8:20 AM Age: 73 years old Clinical history: Indication for study->post ppm/icd implant TECHNIQUE: Imaging protocol: XR of the chest Views: 1 view. COMPARISON: DX XR CHEST 1 VIEW 02/06/2019 6:51 PM FINDINGS: Tubes, catheters and devices: There is a pacemaker present over the left chest with leads in the right atrium and right ventricle. Lungs: No consolidation. Pleural space: No pleural effusion. No pneumothorax. Heart/Mediastinum: Previous CABG in the Bones/joints: The median sternotomy. IMPRESSION There is a pacemaker present over the left chest with leads in the right atrium and right ventricle. THIS DOCUMENT HAS BEEN ELECTRONICALLY SIGNED BY KVNG HERNANDEZ MD GLUCOSE (POCT) (02/09/2019 7:50 AM EST) Glucose POCT 387 (H) 70 - 99 mg/dl POINT OF CARE Result Comment: TESTING Performed at: [facility] POCT Ayush Chahal MD, Laboratory Screwdown Operator [address] [place] [address] Specimen Performing Organization Address City/State/Zipcode Phone Number POINT OF CARE TESTING ELECTROPHYSIOLOGY PROCEDURE (02/09/2019 6:31 AM EST) Specimen Narrative Performed At FINAL RESULT: ELECTROPHYSIOLOGY SERVICE [facility] POCT PACEMAKER IMPLANTATION [facility] [address] [place] [address] PATIENT: Sushant Eben Lexa SURGEON: Dante Oh MD : 1945 DATE OF SURGERY: 02/09/2019 PRE-OP Diagnosis: Sinus node disease AV conduction abnormality POST-OP Diagnosis: Same Procedure: Implantation of Pacemaker Anesthesia Type: Local and conscious sedation HISTORY: @ is a 73-y.o. male was brought to the EP lab for permanent pacemaker implantation for management of sinus node disease/AV conduction disease and episodes of syncope past medical history includes: Past Medical History: Diagnosis Date Coronary artery disease Diabetes mellitus dx 1993; insulin 2002 Gastroesophageal reflux disease Hyperlipidemia Hypertension S/P CABG (coronary artery bypass graft) 08/19/11 08/20/2011 . Current medications include: @CMEDS@. IMPLANTATION OF PACEMAKER AND LEADS Implant Name Type Inv. Item Serial No. Mastic Worker Lot No. [id number] No. Used ASSURITY MRI [id number] GENERATOR - [id number] ASSURITY MRI DR [id number] [employer] Left 1 LEAD, TENDRIL MRI [id number] - [id number] LEAD, TENDRIL MRI [id number] [employer] Left 1 LEAD, TENDRIL MRI [id number] - [id number] LEAD, TENDRIL MRI [id number] [employer] Left 1 PROCEDURE: After detailed discussion and obtained informed consent, the patient was brought to the Cardiac Catheterization Laboratory for pacemaker implantation. Prior to arrival to the Cardiac Catheterization Laboratory, the patient received 1 gram of Ancef intravenously. The patient was prepped and draped in the usual sterile manner and access was obtained using modified Seldinger technique. Two guide wires were introduced into the left subclavian vein under fluoroscopic guidance. A 2-inch long incision about 3/4 inch below and parallel to the clavicle was made under local anesthesia. This incision was deepened to the pectoralis major muscle. Hemostasis was achieved using diathermy and tying off the bleeders. A pocket was created superficial to the pectoralis major muscle by blunt dissection and diathermy. The guide wires were brought into the incision and two 6 -Estonian peel-away venous sheaths and dilator assemblies were advanced over the guide wire into the left subclavian vein. Atrial and ventricular leads were respectively introduced into sheaths and advanced to the right atrium. The patient was then returned to a normal supine position from the initial Trendelenburg position. The right ventricular lead was then advanced to the right ventricular apex and screwed in under fluoroscopy. Atrial lead was subsequently manipulated into the right atrial appendage and screwed in. Additionally, the atrial lead was gently pushed in and rotated to confirm a stable position. Lack of diaphragmatic pacing was then confirmed by pacing at 10 volts of output individually on the atrial and ventricular leads while observing the position of the diaphragm on fluoroscopy. Measurements: 1. The atrial threshold was found to be at 2.5 volts, impedance of 530 ohms . 2. Mean P waves of 3.1 millivolts . 3. The right ventricular threshold was found to be at 1 volts, impedance of 700 ohms. 4. Mean R waves of 8.4 millivolts. These leads were then fixed to the pectoralis major muscle by tying nonabsorbable suture around the protective collar. The leads were connected to the generator and set screws were tightened. The leads and the generator were slid into the pacemaker pocket already created. The wound was closed in three layers and a compression dressing was applied. The patient returned to the floor. SETTINGS: Mode was set as DDD Lower rate was set @60 bpm. Upper rate was set @100 bpm Sensed AV delay was set @325 milliseconds Paced AV delay was set @350 milliseconds COMPLICATIONS: None CONCLUSION: Successful implantation of dual chamber pacemaker. PLAN: Initial wound check in 7-10 days. The generator will be reprogrammed after one months and followed via [facility] per protocol. Author: Dante Oh MD 06:39 02/09/19 SECTION OF CARDIOLOGY Performing Organization Address City/[facility] Phone Number [facility] [address] GLYCOHEMOGLOBIN A1C (02/09/2019 4:17 AM EST) Glycohemoglobin A1C 12.6 (H) <=5.6 % [facility] Comment: GROUP LABORATORY Normal*: <=5.6% Pre Diabetes* Risk: 5.7-6.4% Diabetes* Risk: >=6.5% Glycemic Goals for Adult Diabetes*: <7.0% *(Adult Ranges)[place] [employer], Standards of Medical Care in Diabetes, 2018 Specimen Blood - Blood specimen (specimen) Performing Organization Address City/State/[facility] Phone Number [facility] [address] [place] [address] [phone] MAGNESIUM LEVEL (02/09/2019 4:17 AM EST) Magnesium 1.7 1.6 - 2.3 MG/DL [facility] Specimen Blood - Blood specimen (specimen) Performing Organization Address [facility] Phone Number [facility] [address] [place] [address] [phone] BASIC METABOLIC PANEL (02/09/2019 4:17 AM EST) Glucose 377 (H) 70 - 99 mg/dl [facility] BUN 19 9 - 20 mg/dl [facility] Creatinine 0.8 0.8 - 1.5 mg/dl [facility] Sodium 138 134 - 145 mmol/L [facility] Potassium 4.2 3.5 - 5.1 mmol/L [facility] Chloride 104 98 - 107 mmol/L [facility] CO2 29 22 - 30 mmol/L [facility] Calcium 8.8 8.3 - 10.1 mg/dl [facility] eGFR >60 See Interpretation [facility] Comment: Below ml/min/1.73ml GROUP Estimated GFR Interpretation: LABORATORY Above 60ml/min/1.73m2 = Normal Renal Function 30-59 ml/min/1.73m2 = Stage 3 Chronic Kidney Disease 15-29 ml/min/1.73m2 = Stage 4 Chronic Kidney Disease Less than 15 ml/min/1.73m2 = Stage 5 Chronic Kidney Disease The GFR value is calculated using the Modification of Diet in Renal Disease ( MDRD) Study Equation which can be found at: https://www.kidney.org/content/xatn-wtokx-vnytruci BUN/Creatinine 24 (H) 6 - 22 RATIO [facility] LABORATORY Anion Gap 5 3 - 11 mmol/L [facility] Specimen Blood - Blood specimen (specimen) Performing Organization Address [facility] Phone Number [facility] [address] [place] [address] [phone] CBC NO DIFFERENTIAL (02/09/2019 4:17 AM EST) WBC Count 7.08Comment: 4.23 - 9.07 [facility] was K/uL GROUP LABORATORY changed 03/19/2018. Please note updated reference range and units. RBC Count 4.35 4.30 - 5.89 [facility] Hemoglobin 11.8 (L) 13.7 - 17.5 [facility] g/dL [facility] Hematocrit 36.3 (L) 40.1 - 51.0 % [facility] MCV 83.4 79.0 - 92.2 [facility] FL GROUP [facility] MCH 27.1 25.7 - 32.2 [facility] MCHC 32.5 32.3 - 36.5 [facility] g/dL [facility] Platelet Count 188 163 - 337 [facility] K/uL [facility] MPV 11.0 9.4 - 12.4 FL [facility] RDW 14.5 (H) 11.6 - 14.4 % [facility] Specimen Blood - Blood specimen (specimen) Performing Organization Address City/[facility] Phone Number [facility] [address] [place] [address] GLUCOSE (POCT) (02/08/2019 9:43 PM EST) Glucose POCT 291 (H) 70 - 99 mg/dl POINT OF CARE Result Comment: TESTING Performed at: [facility] POCT Ayush Chahal MD, Laboratory Screwdown Operator [address] [place] [address] Specimen Performing Organization Address [facility] Phone Number POINT OF CARE TESTING GLUCOSE (POCT) (02/08/2019 5:08 PM EST) Glucose POCT 293 (H) 70 - 99 mg/dl POINT OF CARE Result Comment: TESTING Performed at: [facility] POCT Ayush Chahal MD, Laboratory Screwdown Operator [address] [place] [address] Specimen Performing Organization Address [facility] Phone Number POINT OF CARE TESTING GLUCOSE (POCT) (02/08/2019 11:44 AM EST) Glucose POCT 250 (H) 70 - 99 mg/dl POINT OF CARE Result Comment: TESTING Performed at: [facility] POCT Ayush Chahal MD, Laboratory Screwdown Operator [address] [place] [address] Specimen Performing Organization Address City/State/Zipcode Phone Number POINT OF CARE TESTING ECHOCARDIOGRAM TTE (02/08/2019 9:13 AM EST) ECHOCARDIOGRAM TTE ECHOCARDIOGRAPHY REPORT CARDIOLOGY DEPARTMENT Patient Name: LEXA Treadwell Status: Inpatient MR Number: [id number] Gender: Male : 1945 Location: [place] Age:73 year(s) Exam Date: 02/08/2019 09:13 AM Height: 73 inches Weight: 166 pounds Study Performed: ECHOCARDIOGRAM TTE. Ordering Provider: ANAYELI BUTLER DO Referring Provider: ROMEO MILLARD MD Bending Press Operator: Trevor Lopez [facility] Room Number 845 Interpreting CARLOS JALLOH DO Physician BSA: 1.99 m^2 Interpreting Fellow BMI: 21.9 kg/m^2 Nurse Technical Quality: Limited visualization Contrast Medium: Definity. Amount - 1.5 ml Heart Rate (HR): 51bpm Blood Pressure (BP): 140/72mmHg INDICATION FOR STUDY: NSTEMI and Aortic stenosis. HISTORY: 1.5cc's of Definity administered via IV with no waste on (Date) 02/08/19 at (Time) 9:13 am (Lot # [id number] ) ([facility] # [id number]). FINAL IMPRESSION: Moderate concentric LVH. Global systolic function is normal with estimated LVEF 55-60%. Grade II diastolic dysfunction. Normal right heart size and RV systolic function. Severe aortic stenosis. Estimated pulmonary artery systolic pressure is in the upper normal range. Mild ascending aorta dilation. No pericardial effusion. OBSERVATIONS & FINDINGS: Using 2d (3d if applicable), M-mode, Colorflow, Continuous wave doppler and Pulse wave doppler interrogation Left Ventricle Definity imaging enhancer was used because at least two contiguous endocardial borders were not well defined. Moderate concentric LVH. No evidence of LVOT obstruction. Abnormal septal motion is noted. Global systolic function is normal, with an estimated ejection fraction of 55-60 %. Diastolic doppler profile consistent with pseudo-normalization and elevated LA pressure (moderate grade II diastolic dysfunction). Left Atrium The left atrium is upper normal in size. Mitral Valve Mitral valve has mildly thickened but flexible leaflets. No evidence of mitral stenosis or prolapse. There is mild mitral regurgitation. Aortic Valve Aortic valve is tricuspid with thickened and calcified leaflets with reduced mobility. There is severe aortic stenosis. There is no significant aortic regurgitation. Aortic valve area by planimetry is 0.56cm2. The mean and peak gradients across the aortic valve are 45 mmHg and 87 mmHg respectively. Dimensionless index 0.16-0.18 Right Ventricle The right ventricle is normal in size with preserved contractility. Right Atrium The right atrium is normal in size. Tricuspid Valve The tricuspid valve is structurally normal with mobile leaflets. There is mild tricuspid regurgitation. Estimated pulmonary arterial systolic pressure is 33 mmHg. Pulmonic Valve Pulmonic valve is not well visualized but appears flexible with normal Doppler. Pericardium / Pleura There is no pericardial effusion. Miscellaneous Mild ascending aorta dilation. Interatrial septum appears intact by 2D imaging and Color Doppler interrogation. No evidence of PFO or ASD. Measurements & Calculations: M-Mode / 2D Measurements Value Normal Value Normal LVIDd: 4.68 cm 3.5-5.5 AO Root: 3.65 cm 2.0-3.7 LVIDs: 3.29 cm 3.0-4.0 LA Dimension: cm 1.9-4.0 IVSd: 1.55 cm 0.7-1.1 LVOT: 2.02 cm 1.5-2.5 LVPWD: 1.43 cm 0.7-1.1 RV Diastolic Dimension: 3.48 cm EF Estimated: 57 % 50-70% Doppler Measurements & Calculations: Mitral: Aortic: Area (PHT): 2.16 cm^2 LVOT VTI: 21.5 cm Peak E-Wave: 122 cm/s Peak Velocity: 466.88 cm/s Peak A-Wave: 110 cm/s Peak Gradient: 87.19 mmHg Peak Gradient: 5.95 mmHg P1/2t: 102 msec Area (continuity): 0.56 cm^2 Mean Velocity: 309.08 cm/s Mean Gradient: 45.22 mmHg AV VTI: 122.42 cm E/A Ratio: 1.11 Tricuspid: Pulmonic: RVSP:33 mmHg Peak Velocity: 79.8 cm/s Peak TR Velocity:249 cm/s Peak Gradient: 2.55 mmHg TR Gradient:24.8004 mmHg TR Velocity: 249 cm/s Mean Velocity: 63.9 cm/s TR Gradient: 24.8004 mmHg Mean Gradient: 1.75 mmHg Estimated PASP: 32.8 mmHg Estimated RAP: 8 mmHg Estimated RVSP: 33 mmHg Left Atrium: Right Atrium: LA Dimension: 4.66 cm RA dimension:4.31 cm LA/Aorta: 1.28 RA area:19.81 cm^2 LA Area: 22.9 cm^2 LA Volume/Index: 63.67 ml /32m^2 Left Ventricle: Right Ventricle: Diastolic Dimension: 4.68 cm Septum Diastolic: 1.55 cm PW Diastolic: 1.43 cm Alcaraz dimension:3.48 cm EF Calculated: 57.36% CO: 3.51 l/min RV sys pressure:32.8 mmHg FS: 29.7 % LVOT LVOT Diameter: 2.02 cm Peak Velocity: 74.4 cm/s Systolic Dimension: 3.29 cm Peak Gradient: 2.21 mmHg LVOT Diameter: 2.02 cm EF Estimated: 57% Mean Velocity: 54.2 cm/s CI: 1.76 l/min*m^2 Mean Gradient: 1.28 mmHg LVOT VTI: 21.5 cm LV EDV/LV EDV Index: 100.1 ml/50 m^2 Aorta LV ESV/LV ESV Index: 42.68 ml/21 m^2 Aortic Root: 3.65 cm Ascending Aorta: 4.15 cm LVOT Diameter: 2.02 cm Pulmonary Vein: S Velocity: 47.1 cm/s D Velocity: 45 cm/s Signature Ejection Fraction 57 % CARDIOLOGY DEPARTMENT AV AREA 0.56 cm2 CARDIOLOGY DEPARTMENT RVSP 33 mmHg CARDIOLOGY DEPARTMENT LA Volume 63.67 ml CARDIOLOGY DEPARTMENT LVEDd 4.68 cm CARDIOLOGY DEPARTMENT LVESd 3.29 cm CARDIOLOGY DEPARTMENT IVSd 1.55 cm CARDIOLOGY DEPARTMENT LVPWd 1.43 cm CARDIOLOGY DEPARTMENT ESV 42.68 ml CARDIOLOGY DEPARTMENT EDV 100.1 ml CARDIOLOGY DEPARTMENT AV Mean Gradient 45.22 mmHg CARDIOLOGY DEPARTMENT Specimen Performing Organization Address City/[facility] Phone Number CARDIOLOGY DEPARTMENT GLUCOSE (POCT) (02/08/2019 7:35 AM EST) Glucose POCT 191 (H) 70 - 99 mg/dl POINT OF CARE Result Comment: TESTING Performed at: [facility] POCT Ayush Chahal MD, Laboratory Screwdown Operator [address] [place] [address] Specimen Performing Organization Address [facility] Phone Number POINT OF CARE TESTING CBC NO DIFFERENTIAL (02/08/2019 4:18 AM EST) WBC Count 7.93Comment: 4.23 - 9.07 [facility] Methodology was K/uL GROUP LABORATORY changed 03/19/2018. Please note updated reference range and units. RBC Count 4.21 (L) 4.30 - 5.89 [facility] M/UL [facility] Hemoglobin 11.4 (L) 13.7 - 17.5 [facility] g/dL GROUP LAB[facility]ATORY Hematocrit 35.2 (L) 40.1 - 51.0 % [facility] MCV 83.6 79.0 - 92.2 [facility] FL [facility]ORY MCH 27.1 25.7 - 32.2 [facility] PG GROUP LAB[facility]ATORY MCHC 32.4 32.3 - 36.5 [facility] g/dL GROUP LAB[facility]ORY Platelet Count 211 163 - 337 [facility] K/uL [facility]ORY MPV 10.3 9.4 - 12.4 FL [facility] RDW 14.3 11.6 - 14.4 % [facility] Specimen Blood - Blood specimen (specimen) Performing Organization Address [facility] Phone Number [facility] [address] [place] [address] BASIC METABOLIC PANEL (02/08/2019 4:18 AM EST) Glucose 203 (H) 70 - 99 mg/dl [facility] BUN 13 9 - 20 mg/dl [facility] Creatinine 0.8 0.8 - 1.5 mg/dl [facility] Sodium 139 134 - 145 mmol/L [facility] Potassium 4.9 3.5 - 5.1 mmol/L [facility] Chloride 105 98 - 107 mmol/L [facility] CO2 33 (H) 22 - 30 mmol/L [facility] Calcium 9.1 8.3 - 10.1 mg/dl [facility] eGFR >60 See Interpretation [facility] Comment: Below ml/min/1.73ml GROUP Estimated GFR Interpretation: Sq LABORATORY Above 60ml/min/1.73m2 = Normal Renal Function 30-59 ml/min/1.73m2 = Stage 3 Chronic Kidney Disease 15-29 ml/min/1.73m2 = Stage 4 Chronic Kidney Disease Less than 15 ml/min/1.73m2 = Stage 5 Chronic Kidney Disease The GFR value is calculated using the Modification of Diet in Renal Disease ( MDRD) Study Equation which can be found at: https://www.kidney.org/content/pdbx-gjuhf-nqqmcbcf BUN/Creatinine 16 6 - 22 RATIO [facility] LABORATORY Anion Gap 1 (L) 3 - 11 mmol/L [facility] Specimen Blood - Blood specimen (specimen) Performing Organization Address City/[facility] Phone Number [facility] [address] [place] [address] GLUCOSE (POCT) (02/07/2019 8:42 PM EST) Glucose POCT 367 (H) 70 - 99 mg/dl POINT OF CARE Result Comment: TESTING Performed at: [facility] POCT Ayush Chahal MD, Laboratory Screwdown Operator [address] [place] [address] Specimen Performing Organization Address City/[facility] Phone Number POINT OF CARE TESTING GLUCOSE (POCT) (02/07/2019 4:16 PM EST) Glucose POCT 250 (H) 70 - 99 mg/dl POINT OF CARE Result Comment: TESTING Performed at: [facility] POCT Ayush Chahal MD, Laboratory Screwdown Operator [address] [place] [address] [place] [address] Specimen Performing Organization Address [facility] Phone Number POINT OF CARE TESTING IN PT/ED 12 LEAD EKG (02/07/2019 3:45 PM EST) Ventricular Rate 52 BPM CARDIOLOGY DEPARTMENT Atrial rate 58 BPM CARDIOLOGY DEPARTMENT P-R Interval 204 ms CARDIOLOGY DEPARTMENT QRS Duration 114 ms CARDIOLOGY DEPARTMENT Q-T Interval 436 ms CARDIOLOGY DEPARTMENT QTC Calculation 405 ms CARDIOLOGY (Bezet) DEPARTMENT P [place] 43 degrees CARDIOLOGY DEPARTMENT R [place] -32 degrees CARDIOLOGY DEPARTMENT T [place] 87 degrees CARDIOLOGY DEPARTMENT Diagnosis Line Sinus bradycardia with marked sinus arrhythmia CARDIOLOGY Left axis deviation DEPARTMENT Anteroseptal infarct (cited on or before 10-JUL-2017) Abnormal ECG When compared with ECG of 06-FEB-2019 17:47, Previous ECG has undetermined rhythm, needs review Questionable change in initial forces of Anterior leads Confirmed by CHARLES JIMENEZ [phone] on 02/07/2019 5:07:22 PM Specimen Performing Organization Address [facility] Phone Number CARDIOLOGY DEPARTMENT GLUCOSE (POCT) (02/07/2019 11:27 AM EST) Glucose POCT 121 (H) 70 - 99 mg/dl POINT OF CARE Result Comment: TESTING Performed at: [facility] POCT Ayush Chahal MD, Laboratory Screwdown Operator [address] [place] [address] Specimen Performing Organization Address [facility] Phone Number POINT OF CARE TESTING TROPONIN (02/07/2019 10:47 AM EST) Troponin 0.068 (H) 0.000 - 0.034 [facility] Comment: ng/ml GROUP LABORATORY Negative less than or equal to 0.034 ng/ml Indeterminate 0.0351 - 0.119 ng/ml (Suggest Repeat in 4 Hours) Critical (AMI Cutoff) greater than or equal to 0.120 ng/ml Specimen Blood - Blood specimen (specimen) Performing Organization Address [facility] Phone Number [facility] [address] [place] [address] TROPONIN (02/07/2019 2:48 AM EST) Troponin 0.085 (H) 0.000 - 0.034 [facility] Comment: ng/ml GROUP LAB[facility]ATORY Negative less than or equal to 0.034 ng/ml Indeterminate 0.0351 - 0.119 ng/ml (Suggest Repeat in 4 Hours) Critical (AMI Cutoff) greater than or equal to 0.120 ng/ml Specimen Blood - Blood specimen (specimen) Performing Organization Address [facility] Phone Number [facility] [address] [place] [address] MAGNESIUM LEVEL (02/07/2019 2:48 AM EST) Magnesium 1.7 1.6 - 2.3 MG/DL [facility] Specimen Blood - Blood specimen (specimen) Performing Organization Address [facility] Phone Number [facility] [address] [place] [address] BASIC METABOLIC PANEL (02/07/2019 2:48 AM EST) Glucose 319 (H) 70 - 99 mg/dl [facility] BUN 14 9 - 20 mg/dl [facility] Creatinine 0.8 0.8 - 1.5 mg/dl [facility] Sodium 139 134 - 145 mmol/L [facility] Potassium 4.5 3.5 - 5.1 mmol/L [facility] Chloride 103 98 - 107 mmol/L [facility] CO2 30 22 - 30 mmol/L [facility] Calcium 8.8 8.3 - 10.1 mg/dl [facility] eGFR >60 See Interpretation [facility] Comment: Below ml/min/1.73ml GROUP Estimated GFR Interpretation: Sq LABORATORY Above 60ml/min/1.73m2 = Normal Renal Function 30-59 ml/min/1.73m2 = Stage 3 Chronic Kidney Disease 15-29 ml/min/1.73m2 = Stage 4 Chronic Kidney Disease Less than 15 ml/min/1.73m2 = Stage 5 Chronic Kidney Disease The GFR value is calculated using the Modification of Diet in Renal Disease ( MDRD) Study Equation which can be found at: https://www.kidney.org/content/sqth-gmltb-majurasw BUN/Creatinine 18 6 - 22 RATIO [facility] LABORATORY Anion Gap 6 3 - 11 mmol/L [facility] Specimen Blood - Blood specimen (specimen) Performing Organization Address [facility] Phone Number [facility] [address] [place] [address] CBC WITH DIFFERENTIAL (02/07/2019 2:48 AM EST) WBC Count 9.40 (H) 4.23 - 9.07 K/uL [facility] RBC Count 4.56 4.30 - 5.89 M/UL [facility] Hemoglobin 12.3 (L) 13.7 - 17.5 g/dL [facility] Hematocrit 37.7 (L) 40.1 - 51.0 % [facility] MCV 82.7 79.0 - 92.2 FL [facility] MCH 27.0 25.7 - 32.2 PG [facility] MCHC 32.6 32.3 - 36.5 g/dL [facility] Platelet Count 227 163 - 337 K/uL [facility] MPV 10.6 9.4 - 12.4 FL [facility] RDW 14.4 11.6 - 14.4 % [facility] Neutrophil % 62.9 34.0 - 67.9 % [facility] Lymphocyte % 28.0 21.8 - 53.1 % [facility] Monocyte % 7.1 5.3 - 12.2 % [facility] Eosinophil % 1.2 0.8 - 7.0 % [facility] Basophil % 0.5 0.2 - 1.2 % [facility] nRBC % 0.0 0.0 - 0.2 % [facility] Neutrophil # 5.91 (H) 1.78 - 5.38 K/UL [facility] Lymphocyte # 2.63 1.32 - 3.57 K/UL [facility] Monocyte # 0.67 0.30 - 0.82 K/UL [facility] Eosinophil # 0.11 0.04 - 0.54 K/UL [facility] Basophil # 0.05 0.01 - 0.08 K/UL [facility] Immature Gran % 0.3 0.0 - 0.4 % [facility] Immature Gran # 0.03 0.00 - 0.03 K/uL [facility] NRBC # 0.00 0.00 - 0.12 K/uL [facility] Specimen Blood - Blood specimen (specimen) Performing Organization Address [facility] Phone Number [facility] [address] [place] [address] [phone] HEPATITIS C ANTIBODY (02/07/2019 2:48 AM EST) Hepatitis C Ab 0.01 <1.00 S/C [facility] Specimen Blood - Blood specimen (specimen) Narrative Performed At [facility] Test Result [facility] Conclusion From Testing Algorithm <1.00 Negative >=1.00 Reactive Note For Reactive Results: A positive test result by this screening method does not confirm the presence of Hepatitis C antibodies. Confirmation by Hepatitis C Virus RNA PCR (Heptamax) is required. Due to stability issues, a new specimen must be obtained for Hepatitis C Virus RNA PCR testing. Performing Organization Address [facility] Phone Number [facility] [address] [place] [address] GLUCOSE (POCT) (02/06/2019 9:44 PM EST) Glucose POCT 304 (H) 70 - 99 mg/dl POINT OF CARE Result Comment: TESTING Performed at: [facility] POCT Ayush Chahal MD, Laboratory Screwdown Operator [address] [place] [address] Specimen Performing Organization Address [facility] Phone Number POINT OF CARE TESTING XR CHEST 1 VIEW (02/06/2019 7:14 PM EST) Specimen Impressions Performed At No acute findings. Metallic sternotomy wires are in place THIS DOCUMENT HAS BEEN ELECTRONICALLY SIGNED BY LORRI JAMES MD Narrative Performed At PROCEDURE INFORMATION: Exam: XR Chest, 1 View Exam date and time: 02/06/2019 6:25 PM Age: 73 years old Clinical history: Indication for study->dyspnea TECHNIQUE: Imaging protocol: XR of the chest Views: 1 view. COMPARISON: No relevant prior studies available. FINDINGS: Lungs: Unremarkable. No consolidation. Pleural space: Unremarkable. No pleural effusion. No pneumothorax. Heart/Mediastinum: Unremarkable. No cardiomegaly. Bones/joints: Metallic sternotomy wires are in place. Procedure Note Interface, Rad Results - 02/06/2019 7:29 PM EST PROCEDURE INFORMATION: Exam: XR Chest, 1 View Exam date and time: 02/06/2019 6:25 PM Age: 73 years old Clinical history: Indication for study->dyspnea TECHNIQUE: Imaging protocol: XR of the chest Views: 1 view. COMPARISON: No relevant prior studies available. FINDINGS: Lungs: Unremarkable. No consolidation. Pleural space: Unremarkable. No pleural effusion. No pneumothorax. Heart/Mediastinum: Unremarkable. No cardiomegaly. Bones/joints: Metallic sternotomy wires are in place. IMPRESSION No acute findings. Metallic sternotomy wires are in place THIS DOCUMENT HAS BEEN ELECTRONICALLY SIGNED BY LORRI JAMES MD MRSA BY PCR (NASAL) (02/06/2019 6:59 PM EST) MRSA BY PCR Negative for Negative [facility] MRS[facility]omment: Testing LABORATORY performed by PCR. Specimen Nose - Swab of internal nose (specimen) Performing Organization Address [facility] Phone Number [facility] [address] [facility] [place] [address] TROPONIN (02/06/2019 6:22 PM EST) Troponin 0.076 (H) 0.000 - 0.034 [facility] Comment: ng/ml GROUP LAB[facility]ORY Negative less than or equal to 0.034 ng/ml Indeterminate 0.0351 - 0.119 ng/ml (Suggest Repeat in 4 Hours) Critical (AMI Cutoff) greater than or equal to 0.120 ng/ml Specimen Blood - Blood specimen (specimen) Performing Organization Address [facility] Phone Number [facility] [address] [facility] [place] [address] [phone] NT PROBNP (02/06/2019 6:22 PM EST) NT PRO BNP 1,150 (H) <125 pg/ml [facility] Comment: [facility] Recommended cut points for the diagnostic evaluation of heart failure patients with acute dyspnea* Ages (years) Optimal [place] (pg/ml) <50 450 50-75 900 >75 1800 *The [place] Journal of Cardiology NTproBNP results should be interpreted in the context of the overall picture. Serum concentrations of natriuretic peptides may be elevated in patients with acute myocardial infarction and renal insuffic iency. Certain drugs may alter results. Heterophilic antibodies are known to cause interference with immunoassays. Results which are inconsistent with clinical observation indicate a need for additional testing. NTproBNP testing performed on [employer]. Results will not correlate with other methodologies. Specimen Blood - Blood specimen (specimen) Performing Organization Address City/State/Zipcode Phone Number [facility] [address] [facility] [place] [address] COMPREHENSIVE METABOLIC PANEL (02/06/2019 6:22 PM EST) Sodium 140 134 - 145 mmol/L [facility] Potassium 4.1 3.5 - 5.1 mmol/L [facility] Chloride 104 98 - 107 mmol/L [facility] CO2 29 22 - 30 mmol/L [facility] Calcium 9.1 8.3 - 10.1 mg/dl [facility] Albumin 3.5 3.5 - 5.0 g/dl [facility] BUN 15 9 - 20 mg/dl [facility] Creatinine 0.8 0.8 - 1.5 mg/dl [facility] Glucose 106 (H) 70 - 99 mg/dl [facility] Total Protein 6.4 6.3 - 8.2 g/dl [facility] Total Bilirubin 0.5 0.0 - 1.1 MG/DL [facility] AST 16 (L) 17 - 59 U/L [facility] ALT 25 21 - 72 U/L [facility] Alkaline 128 40 - 150 U/L [facility] Phosphatase [facility] eGFR >60 See Interpretation [facility] Comment: Below ml/min/1.73ml GROUP Estimated GFR Interpretation: Sq LABORATORY Above 60ml/min/1.73m2 = Normal Renal Function 30-59 ml/min/1.73m2 = Stage 3 Chronic Kidney Disease 15-29 ml/min/1.73m2 = Stage 4 Chronic Kidney Disease Less than 15 ml/min/1.73m2 = Stage 5 Chronic Kidney Disease The GFR value is calculated using the Modification of Diet in Renal Disease ( MDRD) Study Equation which can be found at: https://www.kidney.org/content/rukp-qhwpn-djjpjdmf BUN/Creatinine 19 6 - 22 [facility] Anion Gap 7 3 - 11 mmol/L [facility] A/G Ratio 1.2 0.8 - 2.0 ratio [facility] Specimen Blood - Blood specimen (specimen) Performing Organization Address City/State/Zipcode Phone Number [facility] [address] [place] [id number] [phone] CBC WITH DIFFERENTIAL (02/06/2019 6:22 PM EST) WBC Count 10.56 (H) 4.23 - 9.07 K/uL [facility] RBC Count 4.82 4.30 - 5.89 M/UL [facility] Hemoglobin 12.9 (L) 13.7 - 17.5 g/dL [facility] Hematocrit 40.7 40.1 - 51.0 % [facility] MCV 84.4 79.0 - 92.2 FL [facility] MCH 26.8 25.7 - 32.2 PG [facility] MCHC 31.7 (L) 32.3 - 36.5 g/dL [facility] Platelet Count 254 163 - 337 K/uL [facility] MPV 10.6 9.4 - 12.4 FL [facility] RDW 14.3 11.6 - 14.4 % [facility] Neutrophil % 65.5 34.0 - 67.9 % [facility] Lymphocyte % 25.7 21.8 - 53.1 % [facility] Monocyte % 7.0 5.3 - 12.2 % [facility] Eosinophil % 0.9 0.8 - 7.0 % [facility] Basophil % 0.6 0.2 - 1.2 % [facility] nRBC % 0.0 0.0 - 0.2 % [facility] Neutrophil # 6.93 (H) 1.78 - 5.38 K/UL [facility] Lymphocyte # 2.71 1.32 - 3.57 K/UL [facility] Monocyte # 0.74 0.30 - 0.82 K/UL [facility] Eosinophil # 0.09 0.04 - 0.54 K/UL [facility] Basophil # 0.06 0.01 - 0.08 K/UL [facility] Immature Gran % 0.3 0.0 - 0.4 % [facility] Immature Gran # 0.03 0.00 - 0.03 K/uL [facility] NRBC # 0.00 0.00 - 0.12 K/uL [facility] Specimen Blood - Blood specimen (specimen) Performing Organization Address [facility] Phone Number [facility] [address] [place] [address] PARTIAL THROMBOPLASTIN TIME (02/06/2019 6:22 PM EST) PTT 31.0Comment: 21.3 - 35.9 SEC [facility] Reference range [facility] updated 01/05/2019. Specimen Blood - Blood specimen (specimen) Performing Organization Address [facility] Number [facility] [address] [place] [address] PROTHROMBIN TIME (02/06/2019 6:22 PM EST) INR 1.01Comment: INR 0.88 - 1.13 [facility] Therapeutic Range: Ratio [facility] 2.0 - 3.5 Protime 13.1Comment: 12.0 - 14.5 sec [facility] Reference range [facility] updated 01/05/2019. Specimen Blood - Blood specimen (specimen) Performing Organization Address [facility] Phone Number [facility] [address] [place] [address] [phone] IN PT/ED 12 LEAD EKG (02/06/2019 5:47 PM EST) Ventricular Rate 66 BPM CARDIOLOGY DEPARTMENT Atrial rate 83 BPM CARDIOLOGY DEPARTMENT P-R Interval ms CARDIOLOGY DEPARTMENT QRS Duration 108 ms CARDIOLOGY DEPARTMENT Q-T Interval 424 ms CARDIOLOGY DEPARTMENT QTC Calculation 444 ms CARDIOLOGY (Bezet) DEPARTMENT P [place] 59 degrees CARDIOLOGY DEPARTMENT R [place] -24 degrees CARDIOLOGY DEPARTMENT T [place] 110 degrees CARDIOLOGY DEPARTMENT Diagnosis Line ### Poor data quality, interpretation may be adversely affected CARDIOLOGY Sinus rhythm with non conducted APCs DEPARTMENT Cannot rule out Septal infarct (cited on or before 10-JUL-2017) T wave abnormality, consider lateral ischemia Abnormal ECG Confirmed by CHARLES JIMENEZ ([id number]) on 02/06/2019 8:06:14 PM Specimen Performing Organization Address City/[facility] Phone Number CARDIOLOGY DEPARTMENT CT CHEST WITHOUT IV CONTRAST (02/06/2019 12:05 AM EST) Specimen Performing Organization Address [facility] Phone Number [facility] [address] [place] [address] XR CHEST 1 VIEW (02/06/2019 12:00 AM EST) Specimen Performing Organization Address [facility] Phone Number [facility] [address] [place] [address] documented in this encounter Visit Diagnoses Diagnosis Severe aortic valve stenosis - Primary Aortic valve disorders Non-ST elevation (NSTEMI) myocardial infarction (HCC) Acute myocardial infarction, subendocardial infarction, episode of care unspecified Nonrheumatic aortic (valve) stenosis Pain Generalized pain Diabetes mellitus (HCC) Type II or unspecified type diabetes mellitus without mention of complication, not stated as uncontrolled Hyperlipidemia Other and unspecified hyperlipidemia Coronary artery disease Coronary atherosclerosis of unspecified type of vessel, upper [place] or graft Gastroesophageal reflux disease Esophageal reflux Hypertension Unspecified essential hypertension S/P CABG (coronary artery bypass graft) 08/19/11 Postsurgical aortocoronary bypass status History of OK (myocardial infarction) Old myocardial infarction History of cardiac pacemaker Personal history of unspecified circulatory disease documented in this encounter Administered Medications Medication Order MAR Action Action Date Dose Rate Site acetaminophen (TYLENOL) tablet Given 02/09/2019 5:12 PM EST 650 mg 650 mg 650 mg, Oral, X1, 1 dose, First dose on Fri02/09/19 at 1530 aspirin (ECOTRIN) enteric coated tablet 81 mg Given 02/10/2019 8:12 AM EST 81 mg 81 mg, Oral, DAILY, First dose on 02/07/19 at 0900, Until Discontinued Given 02/09/2019 9:34 AM EST 81 mg Given 02/08/2019 8:14 AM EST 81 mg atorvastatin (LIPITOR) tablet 80 mg Given 02/09/2019 9:14 PM EST 80 mg 80 mg, Oral, DAILY, First dose on 02/06/19 at 1820, Until Discontinued Given 02/08/2019 9:44 PM EST 80 mg Given 02/07/2019 8:39 PM EST 80 mg benzonatate (TESSALON PERLES) capsule 100 mg Given 02/07/2019 10:39 AM EST 100 mg 100 mg, Oral, TID PRN, Starting Fri02/07/19 at 0234, Until Fri02/10/19 at 2000, cough, This medication dosage form should NOT be crushed. Please call the inpatient Pharmacy for more information. [facility] ext. [phone] [place] ext. [phone] [facility] ext. [phone] , Given 02/07/2019 2:58 AM EST 100 mg cefazolin (ANCEF, KEFZOL) injection 1,000 Given 02/09/2019 6:00 AM EST 1, 000 mg mg 1,000 mg, Intravenous Push, X1, 1 dose, First dose on Fri02/08/19 at 1900, 2 Day of Surgery Pre Procedure, IV push in EP lab prior to procedure ( obtain from optical laboratory mechanic acudose), cefazolin (ANCEF, KEFZOL) IV mixture 500 New Bag 02/10/2019 3:33 AM EST 500 mg mg 500 mg, Intravenous, Q8 HRS, 3 doses, First dose on Fri02/09/19 at 0710, Last dose on Fri02/10/19 at 0300, TIME 4 HRS AFTER PRE OP DOSE, New Bag 02/09/2019 6:48 PM EST 500 mg New Bag 02/09/2019 10:41 AM EST 500 mg clopidogrel (PLAVIX) tablet 75 mg Given 02/10/2019 8:12 AM EST 75 mg 75 mg, Oral, DAILY, First dose on Fri02/06/19 at 1820, Until Discontinued Given 02/09/2019 9:33 AM EST 75 mg Given 02/08/2019 8:14 AM EST 75 mg enoxaparin (LOVENOX) injection Given 02/09/2019 9:14 PM EST 40 mg Abdominal Tissue 40 mg/0.4 mL 40 mg 40 mg, Subcutaneous, Q24 HRS, 30 doses, First dose on Fri02/07/19 at 2100, Last dose on Fri03/08/19 at 2100, Lovenox (enoxaparin): Lovenox is rounded to the nearest 10 mg per hospital policy. - CAUTION & CONSIDER Heparin Xa (anti-Xa levels): CrCl < 30 mL/min; Women < 45 kg; Men < 57 kg; Weight > 150 kg or BMI > 40 kg/m2; , Pediatrics and Elderly patients - Treatment dose: 1 mg/kg q12h - Prophylactic dose: 40 mg q24h OR 30 mg q12h , Given 02/08/2019 9:45 PM EST 40 mg Abdominal Tissue Given 02/07/2019 8:39 PM EST 40 mg Abdominal Tissue gabapentin (NEURONTIN) capsule 300 mg Given 02/10/2019 4:40 PM EST 300 mg 300 mg, Oral, TID, First dose on Fri02/06/19 at 2100, Until Discontinued Given 02/10/2019 8:12 AM EST 300 mg Given 02/09/2019 9:15 PM EST 300 mg GLARGINE insulin Given 02/10/2019 8:13 AM EST 15 Units Arm - Upper Right (LONG-Acting) injection 15 Units 15 Units, Subcutaneous, QAM, First dose on Fri02/10/19 at 0730, Until Discontinued, NOT FOR IV USE, GLARGINE insulin Given 02/09/2019 9:15 PM EST 20 Units Abdominal Tissue (LONG-Acting) injection 20 Units 20 Units, Subcutaneous, QHS, First dose on Fri02/06/19 at 2100, Until Discontinued, NOT FOR IV USE, Given 02/08/2019 9:47 PM EST 20 Units Abdominal Tissue Given 02/07/2019 8:40 PM EST 20 Units Arm - Upper Left HYDROcodone-acetaminophen (NORCO) 5-325 mg 1 Tab 1 Tab, Oral, Q4 HRS PRN, Starting Fri02/09/19 at 0702, Until Fri02/10/19 at 2000, Mild Pain (pain scale 1-3) - PO - 1st line - if immediate effect not required and patient can tolerate PO, Moderate Pain (pain scale 4-6) - PO - 1st line - if immediate effect not required and patient can tolerate PO, MAXIMUM 4,000 mg of acetaminophen daily., lidocaine transdermal Patch applied 02/10/2019 8:13 AM 1 Patch Chest - Right patch (LIDODERM) topical EST 5 % 1 Patch, Topical, DAILY, First dose on Fri02/06/19 at 1810, Until Discontinued, Apply in AM, remove in PM. (no more than 12 h on per day). Please make sure previous patch is removed from site., Patch applied 02/09/2019 9:36 AM EST 1 Patch Chest - Right Patch applied 02/08/2019 9:57 AM EST 1 Patch Chest - Right LISPRO insulin (RAPID-Acting) Given 02/10/2019 12:13 PM 8 Units Arm - Upper Left USUAL Correction Scale Inj EST Subcutaneous, AC/HS, First dose on Fri02/06/19 at 2100, Until Discontinued, Blood Glucose USUAL <=150 0 Units 151-200 2 Units 201-250 4 Units 251-300 6 Units 301-350 8 Units 351-400 10 Units >400 12 Units And Call Substation Operator Chief Not for IV USE, Given 02/10/2019 8:13 AM EST 4 Units Arm - Upper Left Given 02/09/2019 9:15 PM EST 8 Units Abdominal Tissue magnesium sulfate IV premix 1 g New Bag 02/09/2019 2:58 PM EST 1 g 1 g, Intravenous, NOW, 1 dose, Tu02/09/19 at 1450 magnesium sulfate IV premix 1 g New Bag 02/10/2019 8:28 AM EST 1 g 1 g, Intravenous, Q1 HR, 1 dose, First dose on Fri02/10/19 at 0800 metoprolol succinate (TOPROL XL) 24 hour Given 02/07/2019 12:22 PM EST 25 mg tablet 25 mg 25 mg, Oral, DAILY, First dose on Fri02/07/19 at 1210, Until Discontinued, This medication dosage form should NOT be crushed. Please call the inpatient Pharmacy for more information. [facility] ext. [phone] [place] ext. [phone] [facility] ext. [phone] , metoprolol succinate (TOPROL XL) 24 hour Given 02/10/2019 11:24 AM EST 50 mg tablet 50 mg 50 mg, Oral, DAILY, First dose (after last modification) on Fri02/10/19 at 1030, Until Discontinued, Please hold for SBP<90 or HR<55 Thanks This medication dosage form should NOT be crushed. Please call the inpatient Pharmacy for more information. [facility] ext. [phone] [place] ext. [phone] [facility] ext. [phone], nicotine transdermal Patch applied 02/10/2019 8:13 AM 1 Patch Arm - Upper patch-daily (NICODERM) EST Right topical 21 mg/24 hr 1 Patch 1 Patch (21 mg), Transdermal, DAILY, First dose on Fri02/06/19 at 2320, Until Discontinued, Apply one patch in the morning on hairless skin on upper body. Rotate sites. Remove prior to MRI to avoid christie. Please make sure to remove previous patch from site., Patch applied 02/09/2019 9:34 AM EST 1 Patch Arm - Upper Right Patch applied 02/08/2019 8:15 AM EST 1 Patch Arm - Upper Left normal saline IV New Bag 02/09/2019 5:44 AM EST 30 mL/hr Intravenous, at 30 mL/hr, CONTINUOUS, Starting 02/08/19 at 1900, Until 02/09/19 at 0641, 2 Day of Surgery Pre Procedure, Normal Saline at 30 mL via pump with extension tubing in Left arm at 6 am, OXYcodone-acetaminophen (PERCOCET) 5-325 mg 1 Given 02/07/2019 12:22 PM EST 1 Tab Tab 1 Tab, Oral, Q6 HRS PRN, Starting 02/07/19 at 1142, Until 02/08/19 at 1141, Mild Pain (pain scale 1-3) - PO - 2nd line - if immediate effect not required and patient can tolerate PO and if still has mild pain 8 hours after administration of 1st line agent, Moderate Pain (pain scale 4-6) - PO - 1st line - if immediate effect not required and patient can tolerate PO, MAXIMUM 4,000 mg of acetaminophen daily., pantoprazole (PROTONIX) enteric coated tablet Given 02/10/2019 8:12 AM EST 40 mg 40 mg 40 mg, Oral, DAILY, First dose on 02/06/19 at 1820, Until Discontinued, This medication dosage form should NOT be crushed. Please call the inpatient Pharmacy for more information. [facility] ext. [phone] [place] ext. [phone] [facility] ext. [phone] , Given 02/09/2019 9:34 AM EST 40 mg Given 02/08/2019 8:14 AM EST 40 mg perflutren lipid microsphere (DEFINITY) Given 02/08/2019 9:45 AM EST 0.5 mL injection 0.5 mL 0.5 mL, Intravenous Push, PRN, Starting 02/06/19 at 1937, Until Fri02/10/19 at 2000, Poor visualization (see Admin Instructions for details) up to a max dose of 10 mL, The Bending Press Operator will determine if Definity needs to be administered based on the following criteria: 1. Patient has two or more wall segments which cannot be visualized in one or more views 2. Patient is technically difficult to image and is being evaluated for: a. LV function b. Known apical thrombus and/or cardiac tumors c. Suspected myocardial rupture or pseudoaneurysm 3. Patient receiving exercise or pharmacologic stress echocardiogram studies If Definity is needed, the nurse will prepare, administer and document the administration on the eMAR. Definity is provided by the nursery helper and is to be prepared by the nurse as follows: 1. Activate perflutren lipid microsphere (DEFINITY) by shaking the vial for 45 seconds using a Vialmix 2. Draw up the contents of the vial into a 10 mL syringe and add 8.5 mL of Sodium Chloride 0.9% for a total volume of 10 mL 3. Administer 0.5 mL IV push 4. Flush the line with 3 mL Sodium Chloride 0.9% over 10 seconds to clear the tubing 5. Bending Press Operator will monitor the visualization of images 6. If images are still not optimal, repeat steps 3 & 4 as needed until images are optimal OR a total of 10 mL of Definity has been administered. , prazosin (MINIPRESS) capsule 4 mg Given 02/09/2019 9:14 PM EST 4 mg 4 mg, Oral, QHS, First dose on 02/06/19 at 2100, Until Discontinued Given 02/08/2019 9:46 PM EST 4 mg Given 02/07/2019 8:39 PM EST 4 mg silver sulfadiazine (THERMAZENE, SILVADENE) topical cream 1 % Topical, TID PRN, Starting Fri02/09/19 at 0702, Until Fri02/10/19 at 2000, Treatment to use during wound care/dressing changes, Apply to reddened areas on anterior and posterior chest, Apply to reddened areas on anterior and posterior chest, SODIUM CHLORIDE 0.9 % IV SOLN 1 dose, Starting Fri02/09/19 at 0539, Until Fri02/10/19 at 2000, Maxwell Reyes: fozia canseco, Maxwell Reyes: cabinet ajith, venlafaxine (EFFEXOR XR) 24 hour capsule 150 Given 02/09/2019 9:15 PM EST 150 mg mg 150 mg, Oral, Q24 HRS, First dose on 02/06/19 at 2100, Until Discontinued, This medication dosage form should NOT be crushed. Please call the inpatient Pharmacy for more information. [facility] ext. [phone] [place] ext. [phone] [facility] ext. 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/2011 8:24 AM EDT 02/08/2019 7:34 AM EST documented as of this encounter Insurance Payer Benefit Plan / Subscriber ID Effective Phone Address Type Group Dates [employer] xxxxxxxxx Effective [facility] HEALTHCARE for all Administration [employer] dates Guarantor Name Account Type Relation to Date of Phone Billing Patient Address Sushant Lindquist Personal/Family 1945 [address] [phone] [place], [place] (Work) [id number] documented as of this encounter Advance Directives Code Status Date Activated Date Inactivated Comments Full Code 02/06/2019 3:30 PM Does the patient have decision making capacity? Yes Order was discussed with: Unable to determine at this time I discussed all options and patient/surrogate Full Code requested and agreed to:
[2019-02-17] MEDS ORDERED: NS 0.9% 1000 ML** 1,000 ML IV ONE (05:39)
[2019-02-17 06:05] LABS: ABS Basophils 0.1 10^3/ul (0-0.2); ABS Eosinophils 0.1 10^3/ul (0-0.6); ABS Lymphocytes 2.5 10^3/ul (1.0-4.8); ABS Monocytes 0.8 10^3/ul (0-0.8); ABS Neutrophils 3.9 10^3/ul (1.5-7.7); Eosinophil % 1.7 %; Hematocrit 36 % (42-52); Lymphocyte % 33.6 %; Mean Corpuscular HGB Conc 33 g/dL (31-36); Mean Corpuscular Hemoglobin 28 pg (27-31); Mean Corpuscular Volume 84 fL (80-94); Mean Platelet Volume 8.7 fL (7.4-10.4); Nucleated Red Blood Cells % 0.1; Platelet Count 188 10^3/uL (150-450); Red Blood Count 4.33 10^6 /uL (4.18-5.48); Red Cell Distribution Width 16 % (10-15); White Blood Count 7.4 10^3/uL (3.5-10.8)
[2019-02-17 06:20] LABS: ALT 11 U/L (7-52); AST 10 U/L (13-39); Albumin 3.3 g/dL (3.2-5.2); Albumin/Globulin Ratio 1.6 (1-3); Alkaline Phosphatase 90 U/L (34-104); BUN/Creatinine Ratio 20.5 (8-20); Blood Urea Nitrogen 24 mg/dL (6-24); CO2 Carbon Dioxide 30 mmol/L (22-32); Calcium 8.8 mg/dL (8.6-10.3); Chloride 105 mmol/L (101-111); EGFR African American 73.9 (>60); EGFR Non-African American 61.1 (>60); Globulin 2.1 g/dL (2-4); Glucose 211 mg/dL (70-100); Potassium 4.3 mmol/L (3.5-5.0); Sodium 135 mmol/L (135-145); Total Protein 5.4 g/dL (6.4-8.9)
[2019-02-17 06:22] LABS: Troponin I 0.02 ng/mL (<0.03)
[2019-02-17 06:32] LABS: Activated Partial Thrombo Time 33.2 seconds (26.0-38.0); INR 0.95 (0.82-1.09)
[2019-02-17 06:59] VITALS: BP 110/63
--- NOTE | 2019-02-17 11:20 | ED ---
Shortness of Breath - HPI Summary HPI Summary: This patient is a 73-year-old patient with a history of severe aortic stenosis, CABG in 2012 and hypertension presenting to the ED with shortness of breath which occurred at around 4:30 this morning. He denies any chest pain. He was recently seen here at [facility] [place] and was transferred to [facility] for an NSTEMI and cardiothoracic consult. There, a pacemaker was placed. He has had no issues in the last 10 days since the pacemaker was placed on cardiologists at [facility] state they will schedule him for a TAVR. He has an appointment next week with his flatbed owner operator. He states symptoms began at 4: 30 this a.m. while at rest. No history of DVT or PE and patient remains on aspirin and Eliquis at this time. Smoker but states quit after pacemaker was placed. Denies any other symptoms. at bedside. - History of Current Complaint Chief Complaint: EDChestPainROMI Time Seen by Provider: 02/17/19 05:28 Hx Obtained From: Patient, Family/Anesthesiologist Assistant Certified Onset/Duration: Sudden Onset Timing: Constant Current Severity: Mild Associated Signs & Symptoms: Negative - Allergy/Home Medications Allergies/Adverse Reactions: Allergies Allergy/AdvReac Type Severity Reaction Status Date / Time No Known Allergies Allergy Verified 02/06/19 13:06 PMH/Surg Hx/FS Hx/Imm Hx Previously Healthy: Yes Endocrine/Hematology History: 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 Denies: Hx Anticoagulant Therapy, Hx Thyroid Disease Cardiovascular History: Reports: Hx Angina, Hx Coronary Artery Disease, Hx Hypertension, Hx Valvular Heart Disease - AORTIC, Other Cardiovascular Problems/ Disorders - triple bypass Denies: Hx Congestive Heart Failure, Hx Hypercholesterolemia, Hx Myocardial Infarction, Hx Pacemaker/ICD, Hx Peripheral Vascular Disease Respiratory History: Reports: Hx Chronic Obstructive Pulmonary Disease (COPD), Other Respiratory Problems/Disorders - COPD Denies: Hx Asthma GI History: Reports: Hx Gastroesophageal Reflux Disease History: Reports: Hx Kidney Stones Denies: Hx Chronic Renal Failure, Hx Dialysis, Hx Renal Disease Sensory History: Reports: Hx Contacts or Glasses Denies: Hx Hearing Aid Opthamlomology History: Reports: Hx Contacts or Glasses Neurological History: Reports: Other Neuro Impairments/Disorders - neuropathy bilaterally Denies: Hx Dementia, Hx Seizures, Hx Transient Ischemic Attacks (TIA) Psychiatric History: Reports: Hx Anxiety, Hx Post Traumatic Stress Disorder Denies: Hx Panic Disorder, Hx Substance Abuse - Surgical History Surgery Procedure, Year, and Place: 5 cardiac stent placement at [facility] done all in the . Triple Bypass at [facility] 08/19/11. 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 - Immunization History Date of Tetanus Vaccine: UNKNOWN Date of Influenza Vaccine: NONE Hx Pertussis Vaccination: No Immunizations Up to Date: Yes Infectious Disease History: No Infectious Disease History: Reports: Hx Shingles - IN PAST Denies: Hx Clostridium Difficile, Hx Hepatitis, Hx Human Immunodeficiency Virus (HIV), Hx of Known/Suspected MRSA, Hx Tuberculosis, History Other Infectious Disease, Traveled Outside the [place] in Last 30 Days - Family History Known Family History: Negative: Cardiac Disease - Social History Occupation: Unemployed Lives: With Family Alcohol Use: Occasionally Alcohol Amount: 1-2 drinks per week Hx Substance Use: No Substance Use Type: Reports: None Substance Use Comment - Amount & Last Used: oxycodone 10mg qBEDTIME Hx Tobacco Use: Yes Smoking Status (MU): Light Every Day Tobacco Smoker Type: Cigarettes Have You Smoked in the Last Year: Yes Review of Systems Negative: Fever, Chills, Fatigue, Skin Diaphoresis Negative: Palpitations, Chest Pain Positive: Shortness Of Breath. Negative: Cough Genitourinary: Negative Positive: no symptoms reported, see HPI Negative: Arthralgia, Myalgia Skin: Negative Neurological: Negative All Other Systems Reviewed And Are Negative: Yes Physical Exam Triage Information Reviewed: Yes Vital Signs On Initial Exam: Initial Vitals Temp 98.0 F 02/17/19 05:04 Vital Signs Reviewed: Yes Appearance: Positive: Well-Appearing, Well-Nourished Skin: Positive: Warm, Skin Color Reflects Adequate Perfusion Head/Face: Positive: Normal Head/Face Inspection Eyes: Positive: EOMI, ARNOL, Conjunctiva Clear Neck: Positive: Supple Respiratory/Lung Sounds: Positive: Clear to Auscultation, Breath Sounds Present Cardiovascular: Positive: RRR, Pulses are Symmetrical in both Upper and Lower Extremities Musculoskeletal: Positive: Normal, Strength/ROM Intact Neurological: Positive: Speech Normal Psychiatric: Positive: Affect/Mood Appropriate AVPU Assessment: Alert Procedures - Sedation Patient Received Moderate/Deep Sedation with Procedure: No Diagnostics - Vital Signs Vital Signs Temp Pulse Resp BP Pulse Ox 02/17/19 06:59 98.6 F 60 16 110/63 98 02/17/19 06:26 60 19 110/63 97 02/17/19 06:00 60 19 97 02/17/19 05:20 60 23 123/74 100 02/17/19 05:04 98.0 F - Laboratory Lab Results: Lab Results 02/17/19 02/17/19 02/17/19 Range/Units 05:27 05:55 05:55 WBC 7.4 (3.5-10.8) 10^3/uL RBC 4.33 (4.18-5.48) 10^6 /uL Hgb 12.0 L (14.0-18.0) g/dL Hct 36 L (42-52) % MCV 84 (80-94) fL MCH 28 (27-31) pg MCHC 33 (31-36) g/dL RDW 16 H (10-15) % Plt Count 188 (150-450) 10^3/uL MPV 8.7 (7.4-10.4) fL Neut % (Auto) 52.8 % Lymph % (Auto) 33.6 % [place] % (Auto) 10.9 % Eos % (Auto) 1.7 % Baso % (Auto) 1.0 % Absolute Neuts (auto) 3.9 (1.5-7.7) 10^3/ul Absolute Lymphs (auto) 2.5 (1.0-4.8) 10^3/ul Absolute Monos (auto) 0.8 (0-0.8) 10^3/ul Absolute Eos (auto) 0.1 (0-0.6) 10^3/ul Absolute Basos (auto) 0.1 (0-0.2) 10^3/ul Absolute Nucleated RBC 0.0 10^3/ul Nucleated RBC % 0.1 INR (Anticoag Therapy) 0.95 (0.82-1.09) APTT 33.2 (26.0-38.0) seconds Sodium (135-145) mmol/L Potassium (3.5-5.0) mmol/L Chloride (101-111) mmol/L Carbon Dioxide (22-32) mmol/L BUN (6-24) mg/dL Creatinine (0.67-1.17) mg/dL Est GFR ( Amer) (>60) Est GFR (Non-Af Amer) (>60) BUN/Creatinine Ratio (8-20) Glucose (70-100) mg/dL POC Glucose (mg/dL) 100 (70-100) mg/dL Lactic Acid (0.5-2.0) mmol/L Calcium (8.6-10.3) mg/dL Total Bilirubin (0.2-1.0) mg/dL AST (13-39) U/L ALT (7-52) U/L Alkaline Phosphatase (34-104) U/L Troponin I (<0.03) ng/mL B-Natriuretic Peptide (<=100) pg/mL Total Protein (6.4-8.9) g/dL Albumin (3.2-5.2) g/dL Globulin (2-4) g/dL Albumin/Globulin Ratio (1-3) 02/17/19 02/17/19 02/17/19 Range/Units 05:55 05:55 05:55 WBC (3.5-10.8) 10^3/uL RBC (4.18-5.48) 10^6 /uL Hgb (14.0-18.0) g/dL Hct (42-52) % MCV (80-94) fL MCH (27-31) pg MCHC (31-36) g/dL RDW (10-15) % Plt Count (150-450) 10^3/uL MPV (7.4-10.4) fL Neut % (Auto) % Lymph % (Auto) % [place] % (Auto) % Eos % (Auto) % Baso % (Auto) % Absolute Neuts (auto) (1.5-7.7) 10^3/ul Absolute Lymphs (auto) (1.0-4.8) 10^3/ul Absolute Monos (auto) (0-0.8) 10^3/ul Absolute Eos (auto) (0-0.6) 10^3/ul Absolute Basos (auto) (0-0.2) 10^3/ul Absolute Nucleated RBC 10^3/ul Nucleated RBC % INR (Anticoag Therapy) (0.82-1.09) APTT (26.0-38.0) seconds Sodium 135 (135-145) mmol/L Potassium 4.3 (3.5-5.0) mmol/L Chloride 105 (101-111) mmol/L Carbon Dioxide 30 (22-32) mmol/L BUN 24 (6-24) mg/dL Creatinine 1.17 (0.67-1.17) mg/dL Est GFR ( Amer) 73.9 (>60) Est GFR (Non-Af Amer) 61.1 (>60) BUN/Creatinine Ratio 20.5 H (8-20) Glucose 211 H (70-100) mg/dL POC Glucose (mg/dL) (70-100) mg/dL Lactic Acid 0.8 (0.5-2.0) mmol/L Calcium 8.8 (8.6-10.3) mg/dL Total Bilirubin 0.50 (0.2-1.0) mg/dL AST 10 L (13-39) U/L ALT 11 (7-52) U/L Alkaline Phosphatase 90 (34-104) U/L Troponin I 0.02 (<0.03) ng/mL B-Natriuretic Peptide 420 H (<=100) pg/mL Total Protein 5.4 L (6.4-8.9) g/dL Albumin 3.3 (3.2-5.2) g/dL Globulin 2.1 (2-4) g/dL Albumin/Globulin Ratio 1.6 (1-3) Result Diagrams: 02/17/19 05:55 02/17/19 05:55 Lab Statement: Any lab studies that have been ordered have been reviewed, and results considered in the medical decision making process. Course/Dx - Course Course Of Treatment: Patient arrives by private car with . states he c /o SOB at 430am. Patient was placed on O2 on arrival as we were unable to obtain an O2 sat. However immediately after patient was placed in a room, O2 was discontinued and he remains between 97 and 99% on room air. Patient appears very somnolent, however states "he gets that way sometimes." It is difficult to ascertain if this is patient's baseline. He is responding to questions, however very slow. Denies any headache, memory loss, confusion or weakness. Denies any CP. No history of blood clots, however patient does remain on Plavix and aspirin. Hx of multivessel disease, CABG in 2011 and recent pacemaker 10 days ago. EKG obtained which shows a paced rhythm at 60 bpm. Chest x-ray obtained which shows no active cardio pulmonary disease. Labs obtained including a troponin of 0.02, this is reduced from his previous visits. On reexamination, patient states he feels well. He denies any shortness of breath currently. Denies any CP. Discussed case with Dr. Andres. Pt is OK with DC home in good condition, asymptomatic and has f/u next week with flatbed owner operator. - Diagnoses Differential Diagnosis/HQI/PQRI: Positive: Pulmonary Edema, Unstable Angina, Other - PE, aortic valve stenosis Provider Diagnoses: Shortness of breath Discharge ED - Sign-Out/Discharge Documenting (check all that apply): Patient Departure - Discharge Plan Condition: Stable Disposition: HOME Patient Education Materials: Shortness of Breath (ED) Referrals: Letitia Jones [Primary Care Provider] - Additional Instructions: As discussed, please follow up with your flatbed owner operator as scheduled next week If you develop any worsening or changing symptoms, return to the ED immediately - Billing Disposition and Condition Condition: STABLE Disposition: Home
== END 2019-02-17 06:50 | disposition home or self-care (01) ==
LOC: ED 05:03
DX: R06.02 Shortness of breath (principal); E11.9 Type 2 diabetes mellitus without complications; Z95.0 Presence of cardiac pacemaker; Z95.1 Presence of aortocoronary bypass graft; Z95.5 Presence of coronary angioplasty implant and graft; Z79.01 Long term (current) use of anticoagulants; Z79.82 Long term (current) use of aspirin; F17.210 Nicotine dependence, cigarettes, uncomplicated
CPT/HCPCS: 36415; 71045; 80053; 83605; 83880; 84484; 85025; 85610; 85730; 93005; 96360; 99283